=== PATIENT | female | born 1975 | race Caucasian/White ===

== ENCOUNTER 2018-11-04 10:06 | Inpatient (IN) ==
[2018-11-04] MEDS ORDERED: 0.9 % Sodium Chloride 1,000 ML IVC ONE ×2 (11:05→14:19)
[2018-11-04 11:22] LABS: Basophils # 0.1 K/mcL (0.0-0.2); Basophils % 0.4 %; Eosinophils % 0.1 %; Hematocrit 40.6 % (35.3-44.9); Hemoglobin 13.4 g/dL (11.5-15.4); Immature Granulocytes % 0.8 % (0-4); Lymphocytes # 1.2 K/mcL (0.6-4.6); Lymphocytes % 4.4 %; Mean Corpuscular Hemoglobin 28.4 pg (28.0-33.3); Mean Platelet Volume 10.8 fL (9.4-12.4); Monocytes % 3.6 %; Neutrophils # 25.4 K/mcL (1.6-8.9); Platelet Count 341 K/mcL (140-400); Red Blood Count 4.72 M/mcL (3.82-4.97); Red Cell Distribution Width 13.3 % (11.5-14.5); Segmented Neutrophils % 90.7 %
--- NOTE | 2018-11-04 11:36 | Emergency Department Note ---
Disposition Clinical Impression: Pancreatitis Qualifiers: Chronicity: acute Pancreatitis type: other Acute pancreatitis complication: unspecified Qualified Code(s): K85.80 - Other acute pancreatitis without necrosis or infection Disposition: Admitted As Inpatient Condition: Fair Referrals: Annalee Carbajal MD [Primary Care Provider] - Forms: ED Satisfaction Letter Time of Disposition: 15:00 Nausea/Vomiting/Diarrhea HPI - General Chief complaint: ED Nausea/Vomiting/Diarrhea Stated complaint: NV/Abd pain Time Seen by Provider: 11/04/18 10:44 Source: patient, family, EMS Mode of arrival: EMS Limitations: physical limitation Nursing Notes Reviewed: Yes Vital Signs Reviewed: Yes - History of Present Illness HPI Narrative: 43 y/o female presents with her brother and nephew with nausea, vomiting, diarrhea since 0500 this AM. Reports 4 episodes of watery diarrhea and 4-5 episodes of vomiting that appears like "yellow bile with red spots in it". Cough x4-5 days. Denies fever, but has could chills this AM when vomiting. Took ibuprofen 2 hours ago without relief, and EMS gave zofran. Denies vaginal discharge, irregular vaginal bleeding, hematuria, dysuria, or hx of abdominal surgery. Does report hx of GERD. Pt Subjective Complaint: nausea, vomiting, diarrhea, abdominal pain Onset (ago): hour(s) (11 hrs) Description of emesis: bilious, blood-streaked Number of episodes of emesis: 5 Description of Diarrhea: water Number of episodes: 4 Associated Abdominal Pain: Yes If pain, Location of pain: diffuse, periumbilical, LUQ, RUQ, LLQ, RLQ Severity: mild Improves with: rest Worsens with: movement Associated symptoms: Reports: cough, loss of appetite, nausea/vomiting. Denies: fever/chills, headaches, malaise, dysuria, shortness of breath - Related Data Previous Rx's Medication Instructions Recorded Ondansetron HCl [Zofran] 4 mg PO Q6HR PRN #6 tablet 05/23/16 Allergies Allergy/AdvReac Type Severity Reaction Status Date / Time No Known Allergies Allergy Verified 05/23/16 10:33 All systems ED: reviewed and negative except as stated. Review of Systems: As Per HPI Constitutional: Reports: as per HPI. Denies: fever, chills Cardiovascular: Reports: as per HPI. Denies: chest pain Respiratory: Reports: as per HPI, cough Gastrointestinal: Reports: as per HPI, abdominal pain, nausea, vomiting, diarrhea. Denies: constipation, hematemesis, melena, hematochezia Genitourinary: Reports: as per HPI. Denies: urgency, dysuria, hematuria, discharge, abnormal menses, genital lesions Past Medical History - Past Medical History Attestation: Yes The following information was validated with the patient. Source: patient, nursing notes reviewed Medical history: Reports: other Psychiatric history: Reports: no psych history - Social History Smoking Status: Never smoker Smokeless Tobacco Status: No Alcohol use: Reports: none Drug use: Reports: none Physical Exam - General Limitations: language barrier, physical limitation General appearance: alert, in no apparent distress - Head Head exam: atraumatic, normocephalic - Eye Eye exam: Present: normal appearance, PERRL, EOMI - ENT ENT exam: normal exam, mucous membranes moist - Neck Neck exam: Present: normal inspection, full ROM, trachea midline - Chest Chest inspection: Present: normal inspection - Respiratory Respiratory exam: Present: normal lung sounds bilaterally - Cardiovascular Cardiovascular exam: Present: regular rate, normal rhythm, normal heart sounds, +S1, +S2. Absent: systolic murmur, diastolic murmur, rubs, gallop, clicks, JVD - Abdominal Exam Abdominal exam: Present: soft, tenderness, normal bowel sounds. Absent: dis tention, guarding, rebound, rigidity, diminished bowel sounds, organomegaly, psoas sign, obturator sign, Gongora's sign, Rovsing's sign, tenderness at McBurney's Point, ascites Abdominal tenderness: Present: diffuse, mild - Extremities Exam Extremities exam: Present: normal inspection, full ROM - Neurological Exam Neurological exam: Present: alert, oriented X3 - Psychiatric Psychiatric exam: Present: normal affect, normal mood - Skin Skin exam: Present: warm, dry, normal color. Absent: cyanosis, diaphoresis, erythema Course Course Narrative: 1440: I spoke with Demetrio Ennis with gastroenterology. I discussed the patient's presentation, laboratory results and radiology workup. He is aware of the ductal dilatation potential need for MRCP versus ERCP. He states that he is agreeable to consult with the patient and the gastroenterology will see the patient in house tomorrow. He does recommend admission to the medical services with strict bowel rest, IV hydration, IV pain medication, and IV antiemetics. 1455: I spoke with Dr. Hunter, admitting hospitalist on-call. He is except the patient for admission to the hospitalist care. I have also discussed this patient's case with Dr. Mccauley, ED attending. He has had a hcis-[id number] evaluation with patient, reviewed her laboratory and radiology workup, and agrees with the aforementioned plan. - Reevaluation(s) Reevaluation #1: The patient is resting in bed comfortably at this time. Time: 14:45 Vital Signs Temperature 97.9 F 11/04/18 10:13 Pulse Rate 91 11/04/18 10:13 Respiratory Rate 17 11/04/18 10:13 Blood Pressure 146/98 11/04/18 10:13 O2 Sat by Pulse Oximetry 98 11/04/18 10:13 Temperature 97.9 F 11/04/18 10:13 Pulse Rate 89 11/04/18 13:59 Respiratory Rate 16 11/04/18 13:59 Blood Pressure 155/96 11/04/18 13:59 O2 Sat by Pulse Oximetry 100 11/04/18 13:59 Oxygen Delivery Oxygen Delivery Room Air Nausea/Vomiting/Diarrhea - Medical Records Medical records reviewed: Yes I reviewed the patient's medical records. - Lab Data Lab results reviewed: Yes I reviewed the patient's lab results. Lab results narrative: Lab Results 11/04/18 11/04/18 11/04/18 Range/Units 11:09 11:09 11:09 WBC 28.0 H (4.3-11.1) K/mcL RBC 4.72 (3.82-4.97) M/mcL Hgb 13.4 (11.5-15.4) g/dL Hct 40.6 (35.3-44.9) % MCV 86.0 (83.0-100.0) fL MCH 28.4 (28.0-33.3) pg MCHC 33.0 (31.6-35.5) g/dL RDW 13.3 (11.5-14.5) % Plt Count 341 (140-400) K/mcL MPV 10.8 (9.4-12.4) fL Immature Gran % 0.8 (0-4) % Seg Neutrophils % 90.7 % Lymphocytes % 4.4 % Monocytes % 3.6 % Eosinophils % 0.1 % Basophils % 0.4 % Neutrophils # 25.4 H (1.6-8.9) K/mcL Lymphocytes # 1.2 (0.6-4.6) K/mcL Monocytes # 1.0 (0.0-1.3) K/mcL Eosinophils # 0.0 (0.0-0.6) K/mcL Basophils # 0.1 (0.0-0.2) K/mcL Platelet Estimate Normal (Normal) Sodium 134 L (136-145) mEq/L Potassium 4.2 (3.5-5.1) mEq/L Chloride 107 (98-107) mEq/L Carbon Dioxide 18 L (23-29) mEq/L BUN 10 (6-20) mg/dL Creatinine 0.44 L (0.60-1.20) mg/dL Est GFR ( Amer) > 60 (> 60) Est GFR (Non-Af Amer) > 60 (> 60) BUN/Creatinine Ratio 23 (6-26) Glucose 189 H (70-105) mg/dL Calculated Osmolality 282 (280-300) Lactic Acid (0.5-2.2) mmol/L Calcium 8.7 (8.6-10.3) mg/dL Total Bilirubin 0.9 (0.3-1.0) mg/dL Direct Bilirubin 0.3 H (0.0-0.2) mg/dL Indirect Bilirubin 0.6 (0.0-1.2) mg/dL AST 229 H (13-39) Units/L ALT 105 H (7-52) Units/L Alkaline Phosphatase 109 H (34-104) Units/L Serum Total Protein 7.6 (6.4-8.9) g/dL Albumin 3.9 (3.5-5.7) g/dL Globulin 3.7 H (2.4-3.5) g/dL Albumin/Globulin Ratio 1.1 (1.1-2.2) Amylase 1477 H (29-103) Units/L Lipase > 1800 H (11-82) Units/L Urine Color (Yellow) Urine Clarity (Clear) Urine pH (5.0-8.0) pH Units Ur Specific [place] (1.010-1.025) Urine Protein (Neg-Trace) mg/dL Urine Glucose (UA) (Normal) mg/dL Urine Ketones (Negative) mg/dL Urine Blood (Negative) Urine Nitrite (Negative) Urine Bilirubin (Negative) Urine Urobilinogen (Normal) mg/dL Ur Leukocyte Esterase (Negative) Urine Microscopic RBC (0-3) per hpf Urine Microscopic WBC (0-3) per hpf Ur Squamous Epith Cells (None-Few) per lpf Urine Bacteria (None-Few) per hpf Hyaline Casts (None-Few) per lpf Ur Culture Indicated? (NO) Urine Test (Negative) Specimen Rejected Hemolyzed 11/04/18 11/04/18 11/04/18 Range/Units 11:19 11:19 11:50 WBC (4.3-11.1) K/mcL RBC (3.82-4.97) M/mcL Hgb (11.5-15.4) g/dL Hct (35.3-44.9) % MCV (83.0-100.0) fL MCH (28.0-33.3) pg MCHC (31.6-35.5) g/dL RDW (11.5-14.5) % Plt Count (140-400) K/mcL MPV (9.4-12.4) fL Immature Gran % (0-4) % Seg Neutrophils % % Lymphocytes % % Monocytes % % Eosinophils % % Basophils % % Neutrophils # (1.6-8.9) K/mcL Lymphocytes # (0.6-4.6) K/mcL Monocytes # (0.0-1.3) K/mcL Eosinophils # (0.0-0.6) K/mcL Basophils # (0.0-0.2) K/mcL Platelet Estimate (Normal) Sodium (136-145) mEq/L Potassium (3.5-5.1) mEq/L Chloride (98-107) mEq/L Carbon Dioxide (23-29) mEq/L BUN (6-20) mg/dL Creatinine (0.60-1.20) mg/dL Est GFR ( Amer) (> 60) Est GFR (Non-Af Amer) (> 60) BUN/Creatinine Ratio (6-26) Glucose (70-105) mg/dL Calculated Osmolality (280-300) Lactic Acid 1.2 (0.5-2.2) mmol/L Calcium (8.6-10.3) mg/dL Total Bilirubin (0.3-1.0) mg/dL Direct Bilirubin (0.0-0.2) mg/dL Indirect Bilirubin (0.0-1.2) mg/dL AST (13-39) Units/L ALT (7-52) Units/L Alkaline Phosphatase (34-104) Units/L Serum Total Protein (6.4-8.9) g/dL Albumin (3.5-5.7) g/dL Globulin (2.4-3.5) g/dL Albumin/Globulin Ratio (1.1-2.2) Amylase (29-103) Units/L Lipase (11-82) Units/L Urine Color Dark Yellow (Yellow) Urine Clarity Clear (Clear) Urine pH 5.0 (5.0-8.0) pH Units Ur Specific [place] 1.029 H (1.010-1.025) Urine Protein 30 H (Neg-Trace) mg/dL Urine Glucose (UA) Normal (Normal) mg/dL Urine Ketones Negative (Negative) mg/dL Urine Blood Negative (Negative) Urine Nitrite Negative (Negative) Urine Bilirubin Small H (Negative) Urine Urobilinogen Normal (Normal) mg/dL Ur Leukocyte Esterase Negative (Negative) Urine Microscopic RBC 0-3 (0-3) per hpf Urine Microscopic WBC 0-3 (0-3) per hpf Ur Squamous Epith Cells Many H (None-Few) per lpf Urine Bacteria None Seen (None-Few) per hpf Hyaline Casts Few (None-Few) per lpf Ur Culture Indicated? NO (NO) Urine Test Negative (Negative) Specimen Rejected Result diagrams: 11/04/18 11:09 11/04/18 11:09 Lab Results 11/04/18 11/04/18 11/04/18 Range/Units 11:09 11:09 11:09 WBC 28.0 H (4.3-11.1) K/mcL RBC 4.72 (3.82-4.97) M/mcL Hgb 13.4 (11.5-15.4) g/dL Hct 40.6 (35.3-44.9) % MCV 86.0 (83.0-100.0) fL MCH 28.4 (28.0-33.3) pg MCHC 33.0 (31.6-35.5) g/dL RDW 13.3 (11.5-14.5) % Plt Count 341 (140-400) K/mcL MPV 10.8 (9.4-12.4) fL Immature Gran % 0.8 (0-4) % Seg Neutrophils % 90.7 % Lymphocytes % 4.4 % Monocytes % 3.6 % Eosinophils % 0.1 % Basophils % 0.4 % Neutrophils # 25.4 H (1.6-8.9) K/mcL Lymphocytes # 1.2 (0.6-4.6) K/mcL Monocytes # 1.0 (0.0-1.3) K/mcL Eosinophils # 0.0 (0.0-0.6) K/mcL Basophils # 0.1 (0.0-0.2) K/mcL Platelet Estimate Normal (Normal) Sodium 134 L (136-145) mEq/L Potassium 4.2 (3.5-5.1) mEq/L Chloride 107 (98-107) mEq/L Carbon Dioxide 18 L (23-29) mEq/L BUN 10 (6-20) mg/dL Creatinine 0.44 L (0.60-1.20) mg/dL Est GFR ( Amer) > 60 (> 60) Est GFR (Non-Af Amer) > 60 (> 60) BUN/Creatinine Ratio 23 (6-26) Glucose 189 H (70-105) mg/dL Calculated Osmolality 282 (280-300) Lactic Acid (0.5-2.2) mmol/L Calcium 8.7 (8.6-10.3) mg/dL Total Bilirubin 0.9 (0.3-1.0) mg/dL Direct Bilirubin 0.3 H (0.0-0.2) mg/dL Indirect Bilirubin 0.6 (0.0-1.2) mg/dL AST 229 H (13-39) Units/L ALT 105 H (7-52) Units/L Alkaline Phosphatase 109 H (34-104) Units/L Serum Total Protein 7.6 (6.4-8.9) g/dL Albumin 3.9 (3.5-5.7) g/dL Globulin 3.7 H (2.4-3.5) g/dL Albumin/Globulin Ratio 1.1 (1.1-2.2) Triglycerides 122 (< 150) mg/dL Cholesterol 186 (< 200) mg/dL LDL Cholesterol, Calc 119 H (0-99) mg/dL VLDL Cholesterol, Calc 24 (< 31) mg/dL HDL Cholesterol 43 (40-59) mg/dL Cholesterol/HDL Ratio 4.3 (0-4.9) Amylase 1477 H (29-103) Units/L Lipase > 1800 H (11-82) Units/L Urine Color (Yellow) Urine Clarity (Clear) Urine pH (5.0-8.0) pH Units Ur Specific [place] (1.010-1.025) Urine Protein (Neg-Trace) mg/dL Urine Glucose (UA) (Normal) mg/dL Urine Ketones (Negative) mg/dL Urine Blood (Negative) Urine Nitrite (Negative) Urine Bilirubin (Negative) Urine Urobilinogen (Normal) mg/dL Ur Leukocyte Esterase (Negative) Urine Microscopic RBC (0-3) per hpf Urine Microscopic WBC (0-3) per hpf Ur Squamous Epith Cells (None-Few) per lpf Urine Bacteria (None-Few) per hpf Hyaline Casts (None-Few) per lpf Ur Culture Indicated? (NO) Urine Test (Negative) Specimen Rejected Hemolyzed 11/04/18 11/04/18 11/04/18 Range/Units 11:19 11:19 11:50 WBC (4.3-11.1) K/mcL RBC (3.82-4.97) M/mcL Hgb (11.5-15.4) g/dL Hct (35.3-44.9) % MCV (83.0-100.0) fL MCH (28.0-33.3) pg MCHC (31.6-35.5) g/dL RDW (11.5-14.5) % Plt Count (140-400) K/mcL MPV (9.4-12.4) fL Immature Gran % (0-4) % Seg Neutrophils % % Lymphocytes % % Monocytes % % Eosinophils % % Basophils % % Neutrophils # (1.6-8.9) K/mcL Lymphocytes # (0.6-4.6) K/mcL Monocytes # (0.0-1.3) K/mcL Eosinophils # (0.0-0.6) K/mcL Basophils # (0.0-0.2) K/mcL Platelet Estimate (Normal) Sodium (136-145) mEq/L Potassium (3.5-5.1) mEq/L Chloride (98-107) mEq/L Carbon Dioxide (23-29) mEq/L BUN (6-20) mg/dL Creatinine (0.60-1.20) mg/dL Est GFR ( Amer) (> 60) Est GFR (Non-Af Amer) (> 60) BUN/Creatinine Ratio (6-26) Glucose (70-105) mg/dL Calculated Osmolality (280-300) Lactic Acid 1.2 (0.5-2.2) mmol/L Calcium (8.6-10.3) mg/dL Total Bilirubin (0.3-1.0) mg/dL Direct Bilirubin (0.0-0.2) mg/dL Indirect Bilirubin (0.0-1.2) mg/dL AST (13-39) Units/L ALT (7-52) Units/L Alkaline Phosphatase (34-104) Units/L Serum Total Protein (6.4-8.9) g/dL Albumin (3.5-5.7) g/dL Globulin (2.4-3.5) g/dL Albumin/Globulin Ratio (1.1-2.2) Triglycerides (< 150) mg/dL Cholesterol (< 200) mg/dL LDL Cholesterol, Calc (0-99) mg/dL VLDL Cholesterol, Calc (< 31) mg/dL HDL Cholesterol (40-59) mg/dL Cholesterol/HDL Ratio (0-4.9) Amylase (29-103) Units/L Lipase (11-82) Units/L Urine Color Dark Yellow (Yellow) Urine Clarity Clear (Clear) Urine pH 5.0 (5.0-8.0) pH Units Ur Specific [place] 1.029 H (1.010-1.025) Urine Protein 30 H (Neg-Trace) mg/dL Urine Glucose (UA) Normal (Normal) mg/dL Urine Ketones Negative (Negative) mg/dL Urine Blood Negative (Negative) Urine Nitrite Negative (Negative) Urine Bilirubin Small H (Negative) Urine Urobilinogen Normal (Normal) mg/dL Ur Leukocyte Esterase Negative (Negative) Urine Microscopic RBC 0-3 (0-3) per hpf Urine Microscopic WBC 0-3 (0-3) per hpf Ur Squamous Epith Cells Many H (None-Few) per lpf Urine Bacteria None Seen (None-Few) per hpf Hyaline Casts Few (None-Few) per lpf Ur Culture Indicated? NO (NO) Urine Test Negative (Negative) Specimen Rejected - Radiology Data Radiology results reviewed: Yes I reviewed the patient's radiology results.
[2018-11-04 11:41] LABS: Bilirubin,Urine Small (Negative); Blood,Urine Negative (Negative); Clarity,Urine Clear (Clear); Color,Urine Dark Yellow (Yellow); Glucose,Urine (UA) Normal (Normal); Ketones,Urine Negative (Negative); Leukocyte Esterase,Urine Negative (Negative); Nitrite,Urine Negative (Negative); Protein,Urine 30 mg/dL (Neg-Trace); Specific Gravity,Urine 1.029 (1.010-1.025); Urobilinogen,Urine Normal (Normal)
[2018-11-04 11:43] LABS: Bacteria,Urine None Seen per hpf (None-Few); Hyaline Casts,Urine Few per lpf (None-Few); RBC,Urine 0-3 per hpf (0-3); Squamous Epithelial Cell,Urine Many per lpf (None-Few); WBC,Urine 0-3 per hpf (0-3)
[2018-11-04 11:44] LABS: Alanine Aminotransferase 105 Units/L (7-52); Albumin 3.9 g/dL (3.5-5.7); Albumin/Globulin Ratio 1.1 (1.1-2.2); Alkaline Phosphatase 109 Units/L (34-104); Amylase 1477 Units/L (29-103); Aspartate Amino Transferase 229 Units/L (13-39); BUN/Creatinine Ratio 23 (6-26); Bilirubin,Direct 0.3 mg/dL (0.0-0.2); Bilirubin,Indirect 0.6 mg/dL (0.0-1.2); Bilirubin,Total 0.9 mg/dL (0.3-1.0); Blood Urea Nitrogen 10 mg/dL (6-20); Calcium 8.7 mg/dL (8.6-10.3); Carbon Dioxide 18 mEq/L (23-29); Chloride 107 mEq/L (98-107); Globulin 3.7 g/dL (2.4-3.5); Glucose 189 mg/dL (70-105); Osmolality,Calculated 282 (280-300); Potassium 4.2 mEq/L (3.5-5.1); Sodium 134 mEq/L (136-145); Total Protein 7.6 g/dL (6.4-8.9); eGFR For Non-African Americans > 60 (> 60)
[2018-11-04 11:47] LABS: Platelet Estimate Normal (Normal)
[2018-11-04] MEDS ORDERED: Isovue-370 500 ML BOTTLE IVP ONE (11:54)
[2018-11-04 11:56] LABS: Lipase > 1800 Units/L (11-82)
[2018-11-04] MEDS ORDERED: Ondansetron 4 MG/2 ML VIAL IVP ONE (12:43)
[2018-11-04] MEDS ORDERED: Promethazine 25 MG in 0.9 % Sodium Chloride 50 ML IVPB ONE (13:08)
[2018-11-04] MEDS ORDERED: *HR* Promethazine 25 MG/ML VIAL ONE (13:15)
[2018-11-04] MEDS ORDERED: Haloperidol Lactate 5 MG/ML VIAL ONE (13:51)
[2018-11-04] MEDS ORDERED: Haloperidol Lactate 5 MG/ML VIAL IVP ONE (13:53)
[2018-11-04 13:59] LABS: Chol/HDL Ratio 4.3 (0-4.9); Cholesterol 186 mg/dL (< 200); HDL Cholesterol 43 mg/dL (40-59); LDL Cholesterol,Calculated 119 mg/dL (0-99); Triglycerides 122 mg/dL (< 150)
--- NOTE | 2018-11-04 14:18 | Emergency Department Note ---
Disposition Clinical Impression: Pancreatitis Qualifiers: Chronicity: acute Pancreatitis type: other Acute pancreatitis complication: unspecified Qualified Code(s): K85.80 - Other acute pancreatitis without necrosis or infection Disposition: Still a Patient Referrals: Annalee Carbajal MD [Primary Care Provider] - Forms: ED Satisfaction Letter General Adult HPI - General Chief complaint: ED Nausea/Vomiting/Diarrhea Stated complaint: NV/Abd pain Time Seen by Provider: 11/04/18 10:44 Source: patient, family, EMS Mode of arrival: EMS Limitations: language barrier, physical limitation Nursing Notes Reviewed: Yes Vital Signs Reviewed: Yes - History of Present Illness HPI Narrative: Attestation note: Patient was seen with the emergency medicine resident/nurse pra ctitioner/physician statistical assistant/transitional resident/medical student: SHIV PAULA I have personally performed a face to face evaluation on this patient. I have reviewed and agree with history and physical examination patient management and disposition. Briefly the salient points of the case are as follows: 43-year-old female history of MRDD comes in with abdominal pain nausea and vomiting. Has tender abdomen with guarding but no rebound. Elevated white count approximately 28,000, has skyhigh amylase and lipase 1800 or greater. Patient will get an abdominal pelvic CT emergency determine if this is gallstone pancreatitis. T bili is only 0.5. Admission anticipated, providing 30 minutes critical care service for this patient with IV fluids pain management and nausea management. Disposition pending Pain Scale: 10 - Related Data Previous Rx's Medication Instructions Recorded Ondansetron HCl [Zofran] 4 mg PO Q6HR PRN #6 tablet 05/23/16 Allergies Allergy/AdvReac Type Severity Reaction Status Date / Time No Known Allergies Allergy Verified 05/23/16 10:33 Constitutional: Reports: as per HPI. Denies: fever, chills Cardiovascular: Reports: as per HPI. Denies: chest pain Respiratory: Reports: as per HPI, cough Gastrointestinal: Reports: as per HPI, abdominal pain, nausea, vomiting, diarrhea. Denies: constipation, hematemesis, melena, hematochezia Genitourinary: Reports: as per HPI. Denies: urgency, dysuria, hematuria, discharge, abnormal menses, genital lesions Past Medical History - Past Medical History Medical history: Reports: other Psychiatric history: Reports: no psych history - Social History Smoking Status: Never smoker Smokeless Tobacco Status: No Alcohol use: Reports: none Drug use: Reports: none Physical Exam - General Limitations: language barrier, physical limitation General appearance: alert, in no apparent distress Course Vital Signs Temperature 97.9 F 11/04/18 10:13 Pulse Rate 91 11/04/18 10:13 Respiratory Rate 17 11/04/18 10:13 Blood Pressure 146/98 11/04/18 10:13 O2 Sat by Pulse Oximetry 98 11/04/18 10:13 Temperature 97.9 F 11/04/18 10:13 Pulse Rate 89 11/04/18 13:59 Respiratory Rate 16 11/04/18 13:59 Blood Pressure 155/96 11/04/18 13:59 O2 Sat by Pulse Oximetry 100 11/04/18 13:59 Oxygen Delivery Oxygen Delivery Room Air Medical Decision Making - Lab Data Result diagrams: 11/04/18 11:09 11/04/18 11:09 Lab Results 11/04/18 11/04/18 11/04/18 Range/Units 11:09 11:09 11:09 WBC 28.0 H (4.3-11.1) K/mcL RBC 4.72 (3.82-4.97) M/mcL Hgb 13.4 (11.5-15.4) g/dL Hct 40.6 (35.3-44.9) % MCV 86.0 (83.0-100.0) fL MCH 28.4 (28.0-33.3) pg MCHC 33.0 (31.6-35.5) g/dL RDW 13.3 (11.5-14.5) % Plt Count 341 (140-400) K/mcL MPV 10.8 (9.4-12.4) fL Immature Gran % 0.8 (0-4) % Seg Neutrophils % 90.7 % Lymphocytes % 4.4 % Monocytes % 3.6 % Eosinophils % 0.1 % Basophils % 0.4 % Neutrophils # 25.4 H (1.6-8.9) K/mcL Lymphocytes # 1.2 (0.6-4.6) K/mcL Monocytes # 1.0 (0.0-1.3) K/mcL Eosinophils # 0.0 (0.0-0.6) K/mcL Basophils # 0.1 (0.0-0.2) K/mcL Platelet Estimate Normal (Normal) Sodium 134 L (136-145) mEq/L Potassium 4.2 (3.5-5.1) mEq/L Chloride 107 (98-107) mEq/L Carbon Dioxide 18 L (23-29) mEq/L BUN 10 (6-20) mg/dL Creatinine 0.44 L (0.60-1.20) mg/dL Est GFR ( Amer) > 60 (> 60) Est GFR (Non-Af Amer) > 60 (> 60) BUN/Creatinine Ratio 23 (6-26) Glucose 189 H (70-105) mg/dL Calculated Osmolality 282 (280-300) Lactic Acid (0.5-2.2) mmol/L Calcium 8.7 (8.6-10.3) mg/dL Total Bilirubin 0.9 (0.3-1.0) mg/dL Direct Bilirubin 0.3 H (0.0-0.2) mg/dL Indirect Bilirubin 0.6 (0.0-1.2) mg/dL AST 229 H (13-39) Units/L ALT 105 H (7-52) Units/L Alkaline Phosphatase 109 H (34-104) Units/L Serum Total Protein 7.6 (6.4-8.9) g/dL Albumin 3.9 (3.5-5.7) g/dL Globulin 3.7 H (2.4-3.5) g/dL Albumin/Globulin Ratio 1.1 (1.1-2.2) Triglycerides 122 (< 150) mg/dL Cholesterol 186 (< 200) mg/dL LDL Cholesterol, Calc 119 H (0-99) mg/dL VLDL Cholesterol, Calc 24 (< 31) mg/dL HDL Cholesterol 43 (40-59) mg/dL Cholesterol/HDL Ratio 4.3 (0-4.9) Amylase 1477 H (29-103) Units/L Lipase > 1800 H (11-82) Units/L Urine Color (Yellow) Urine Clarity (Clear) Urine pH (5.0-8.0) pH Units Ur Specific [place] (1.010-1.025) Urine Protein (Neg-Trace) mg/dL Urine Glucose (UA) (Normal) mg/dL Urine Ketones (Negative) mg/dL Urine Blood (Negative) Urine Nitrite (Negative) Urine Bilirubin (Negative) Urine Urobilinogen (Normal) mg/dL Ur Leukocyte Esterase (Negative) Urine Microscopic RBC (0-3) per hpf Urine Microscopic WBC (0-3) per hpf Ur Squamous Epith Cells (None-Few) per lpf Urine Bacteria (None-Few) per hpf Hyaline Casts (None-Few) per lpf Ur Culture Indicated? (NO) Urine Test (Negative) Specimen Rejected Hemolyzed 11/04/18 11/04/18 11/04/18 Range/Units 11:19 11: 11:50 WBC (4.3-11.1) K/mcL RBC (3.82-4.97) M/mcL Hgb (11.5-15.4) g/dL Hct (35.3-44.9) % MCV (83.0-100.0) fL MCH (28.0-33.3) pg MCHC (31.6-35.5) g/dL RDW (11.5-14.5) % Plt Count (140-400) K/mcL MPV (9.4-12.4) fL Immature Gran % (0-4) % Seg Neutrophils % % Lymphocytes % % Monocytes % % Eosinophils % % Basophils % % Neutrophils # (1.6-8.9) K/mcL Lymphocytes # (0.6-4.6) K/mcL Monocytes # (0.0-1.3) K/mcL Eosinophils # (0.0-0.6) K/mcL Basophils # (0.0-0.2) K/mcL Platelet Estimate (Normal) Sodium (136-145) mEq/L Potassium (3.5-5.1) mEq/L Chloride (98-107) mEq/L Carbon Dioxide (23-29) mEq/L BUN (6-20) mg/dL Creatinine (0.60-1.20) mg/dL Est GFR ( Amer) (> 60) Est GFR (Non-Af Amer) (> 60) BUN/Creatinine Ratio (6-26) Glucose (70-105) mg/dL Calculated Osmolality (280-300) Lactic Acid 1.2 (0.5-2.2) mmol/L Calcium (8.6-10.3) mg/dL Total Bilirubin (0.3-1.0) mg/dL Direct Bilirubin (0.0-0.2) mg/dL Indirect Bilirubin (0.0-1.2) mg/dL AST (13-39) Units/L ALT (7-52) Units/L Alkaline Phosphatase (34-104) Units/L Serum Total Protein (6.4-8.9) g/dL Albumin (3.5-5.7) g/dL Globulin (2.4-3.5) g/dL Albumin/Globulin Ratio (1.1-2.2) Triglycerides (< 150) mg/dL Cholesterol (< 200) mg/dL LDL Cholesterol, Calc (0-99) mg/dL VLDL Cholesterol, Calc (< 31) mg/dL HDL Cholesterol (40-59) mg/dL Cholesterol/HDL Ratio (0-4.9) Amylase (29-103) Units/L Lipase (11-82) Units/L Urine Color Dark Yellow (Yellow) Urine Clarity Clear (Clear) Urine pH 5.0 (5.0-8.0) pH Units Ur Specific [place] 1.029 H (1.010-1.025) Urine Protein 30 H (Neg-Trace) mg/dL Urine Glucose (UA) Normal (Normal) mg/dL Urine Ketones Negative (Negative) mg/dL Urine Blood Negative (Negative) Urine Nitrite Negative (Negative) Urine Bilirubin Small H (Negative) Urine Urobilinogen Normal (Normal) mg/dL Ur Leukocyte Esterase Negative (Negative) Urine Microscopic RBC 0-3 (0-3) per hpf Urine Microscopic WBC 0-3 (0-3) per hpf Ur Squamous Epith Cells Many H (None-Few) per lpf Urine Bacteria None Seen (None-Few) per hpf Hyaline Casts Few (None-Few) per lpf Ur Culture Indicated? NO (NO) Urine Test Negative (Negative) Specimen Rejected
[2018-11-04] MEDS ORDERED: *HR* Morphine 2 MG/ML SYRINGE IVP ONE (14:19)
--- NOTE | 2018-11-04 15:56 | Internal Med History&Physical ---
Date of Encounter: 11/04/18 Time of Encounter: 15:30 Internal Medicine - H&P: HPI Chief complaint: nausea, vomiting, abdominal pain Admitted From: Home Plans for Post Hospital Care: Home History of present illness: Ms. Douglas is a 43 year old female with MRDD who is brought to the ER by family for evaluation of abdominal pain, nausea, and vomiting. Pt has MRDD and lives with family; pt's brother is present at bedside, who provided the history/medical information. As per pt's brother, pt was in her usual state of health until this morning when she started complaining of severe right sided abdominal pain associated with severe nausea and vomiting. Pt was noted to have one episode of bilious vomiting. Upon arrival to the ER pt was noted to be in severe painful distress with nausea due to which she was given IV morphine and IV Zofran. I evaluated the patient after she had received those medications. During my evaluation, pt denied any abdominal pain, nausea, or vomiting. No fever or chills were reported. Pt does have history of cholelithiasis as per med records in the past but no prior surgeries were reported. Ten point ROS is negative except as listed above. pt's baseline mental status is AAO x 1 (currently at baseline mental status) Past Med Surg Social Fam HX - Past Medical History Additional medical history: muscular dystrophy Psychiatric history: no psych history - Social History Smoking Status: Never smoker Smokeless Tobacco Status: No Alcohol use: none Drug use: none Internal Medicine - H&P: Meds Ondansetron HCl [Zofran] 4 mg PO Q6HR PRN #6 tablet 05/23/16 [Rx] Allergy/AdvReac Type Severity Reaction Status Date / Time No Known Allergies Allergy Verified 05/23/16 10:33 All Systems PM: A 10-system review of systems was performed and is negative for pertinent findi ngs except as documented above in the HPI. - Constitutional Constitutional: as per HPI - Constitutional Vitals: Temp Pulse Resp BP Pulse Ox 97.9 F 89 16 155/96 100 11/04/18 10:13 11/04/18 13:59 11/04/18 13:59 11/04/18 13:59 11/04/18 13:59 General appearance: Present: A&O X 1, no acute distress, obese Exam: NO acute distress - Head Head exam: Present: atraumatic, normocephalic - Eye Eye exam: Absent: scleral icterus, conjuntiva pink - Respiratory Respiratory exam: Present: CTAB. Absent: respiratory distress, rhonchi, w heezes, tachypnea - Cardiovascular Cardiovascular exam: Present: +S1, +S2, tachycardia. Absent: diastolic murmur, irregular rhythm, JVD, systolic murmur - GI/Abdominal GI/Abdominal exam: Present: normal bowel sounds, soft. Absent: distended, guarding, tenderness - Extremities Exam Extremities exam: Present: warm. Absent: tenderness (contracted left LE) - Neurological Exam Neurological exam: Present: alert Internal Med - H&P Results - Labs CBC & Chem 7: 11/04/18 11:09 11/04/18 11:09 Labs: Short CBC 11/04/18 Range/Units 11:09 WBC 28.0 H (4.3-11.1) K/mcL Hgb 13.4 (11.5-15.4) g/dL Hct 40.6 (35.3-44.9) % Plt Count 341 (140-400) K/mcL Neutrophils # 25.4 H (1.6-8.9) K/mcL BMP 11/04/18 11:09 Sodium 134 L Potassium 4.2 Chloride 107 Carbon Dioxide 18 L BUN 10 Creatinine 0.44 L Glucose 189 H Calcium 8.7 Liver Function 11/04/18 Range/Units 11:09 Total Bilirubin 0.9 (0.3-1.0) mg/dL Direct Bilirubin 0.3 H (0.0-0.2) mg/dL AST 229 H (13-39) Units/L ALT 105 H (7-52) Units/L Alkaline Phosphatase 109 H (34-104) Units/L Albumin 3.9 (3.5-5.7) g/dL Urine 11/04/18 Range/Units 11:19 Urine Color Dark Yellow (Yellow) Urine Clarity Clear (Clear) Urine pH 5.0 (5.0-8.0) pH Units Ur Specific [place] 1.029 H (1.010-1.025) Urine Protein 30 H (Neg-Trace) mg/dL Urine Glucose (UA) Normal (Normal) mg/dL - Impressions ITS Impressions Abdomen/Pelvis CT 11/04/18 11:54 IMPRESSION: Peripancreatic fat stranding concerning for acute pancreatitis. Clinical and laboratory correlation suggested. No evidence for pancreatic necrosis, focal fluid collection such as pseudocyst or abscess formation, or splenic vein thrombosis. Mild ascites likely reactive relating to the acute pancreatitis. Intrahepatic and extrahepatic biliary ductal dilatation, new from prior exam 09/03/2018. No definite intraductal abnormality noted. This may be secondary to the acute pancreatitis. Clinical and laboratory correlation suggested and consideration could be given to further evaluation with MRCP or ERCP. Cholelithiasis. 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 Small hiatal hernia. D/ / 11/04/2018 14:20:07 Jason Grayson MD / [place] Interpreting Provider: Jason Grayson MD - Assessment and Plan (1) Acute pancreatitis Current Visit: Yes Status: Acute Assessment and plan: CT abd/pelvis: Peripancreatic fat stranding concerning for acute pancreatitis. Clinical and laboratory correlation suggested. No evidence for pancreatic necrosis, focal fluid collection such as pseudocyst or abscess formation, or splenic vein thrombosis. Mild ascites likely reactive relating to the acute pancreatitis. Intrahepatic and extrahepatic biliary ductal dilatation, new from prior exam 09/03/2018. No definite intraductal abnormality noted. This may be secondary to the acute pancreatitis. Clinical and laboratory correlation suggested and consideration could be given to further evaluation with MRCP or ERCP. Cholelithiasis. 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 Small hiatal hernia. GI evaluation requested by ER physician continue IV fluids, pain management, anti-emetic support as needed start IV Zosyn NPO at this time Qualifiers: Pancreatitis type: biliary Acute pancreatitis complication: no infection or necrosis Qualified Code(s): K85.10 - Biliary acute pancreatitis without necrosis or infection (2) Sepsis Current Visit: Yes Status: Acute Assessment and plan: likely secondary to acute pancreatitis continue management as listed above Qualifiers: Sepsis type: sepsis due to unspecified organism Qualified Code(s): A41.9 - Sepsis, unspecified organism (3) Cholecystitis with cholelithiasis Current Visit: Yes Status: Acute Assessment and plan: continue supportive care IV fluids, IV Abx GI evaluation requested Pt will likely need ERCP, will defer to GI Qualifiers: Cholelithiasis location: bile duct Cholecystitis acuity: acute and chronic Biliary obstruction: without biliary obstruction Qualified Code(s): K80.46 - Calculus of bile duct with acute and chronic cholecystitis without obstruction (4) Hyperglycemia Current Visit: Yes Status: Acute Assessment and plan: No reported history of DM will obtain HbA1C (5) DVT prophylaxis Current Visit: Yes Status: Acute Assessment and plan: Heparin SQ - Time Spent With Patient Total time spent is greater than 50% in coordination of care (as documented) at patient's floor/unit and/or counseling patient: Greater than 35 minutes
[2018-11-04 16:34] LABS: Alanine Aminotransferase 97 Units/L (7-52); Albumin 3.8 g/dL (3.5-5.7); Albumin/Globulin Ratio 1.1 (1.1-2.2); Alkaline Phosphatase 97 Units/L (34-104); Aspartate Amino Transferase 133 Units/L (13-39); BUN/Creatinine Ratio 22 (6-26); Bilirubin,Total 0.6 mg/dL (0.3-1.0); Blood Urea Nitrogen 8 mg/dL (6-20); Calcium 8.2 mg/dL (8.6-10.3); Carbon Dioxide 16 mEq/L (23-29); Chloride 107 mEq/L (98-107); Globulin 3.5 g/dL (2.4-3.5); Glucose 189 mg/dL (70-105); Osmolality,Calculated 277 (280-300); Potassium 4.5 mEq/L (3.5-5.1); Sodium 132 mEq/L (136-145); Total Protein 7.3 g/dL (6.4-8.9); eGFR For Non-African Americans > 60 (> 60)
[2018-11-04] MEDS: 0.9 % Sodium Chloride 1,000 ML IVC SCH ×2 (17:45→23:01)
[2018-11-04] MEDS: Piperacillin/Tazobactam 3.375 GM in 0.9 % Sodium Chloride Mini Bag 100 ML IVP SCH (17:46)
[2018-11-04] MEDS: *HR* Heparin 5,000 UNIT/ML VIAL SQ SCH (17:51)
[2018-11-04] MEDS: *HR* Morphine 2 MG/ML SYRINGE IVP PRN (19:54)
[2018-11-04] MEDS: Ondansetron 4 MG/2 ML VIAL IVP PRN (19:55)
[2018-11-05] MEDS: Piperacillin/Tazobactam 3.375 GM in 0.9 % Sodium Chloride Mini Bag 100 ML IVP SCH ×3 (01:32→16:03)
[2018-11-05] MEDS: Ondansetron 4 MG/2 ML VIAL IVP PRN (02:05)
[2018-11-05] MEDS: *HR* Morphine 2 MG/ML SYRINGE IVP PRN ×2 (02:06→06:33)
[2018-11-05] MEDS: 0.9 % Sodium Chloride 1,000 ML IVC SCH (04:05)
[2018-11-05 04:52] LABS: Basophils % 0.2 %; Immature Granulocytes % 1.1 % (0-4); Mean Platelet Volume 10.9 fL (9.4-12.4)
[2018-11-05 04:54] LABS: Basophils # 0.1 K/mcL (0.0-0.2); Hematocrit 39.9 % (35.3-44.9); Hemoglobin 13.4 g/dL (11.5-15.4); Lymphocytes # 1.3 K/mcL (0.6-4.6); Lymphocytes % 3.1 %; Mean Corpuscular HGB Conc 33.6 g/dL (31.6-35.5); Mean Corpuscular Volume 83.5 fL (83.0-100.0); Monocytes # 2.2 K/mcL (0.0-1.3); Monocytes % 5.3 %; Platelet Count 371 K/mcL (140-400); Red Blood Count 4.78 M/mcL (3.82-4.97); Red Cell Distribution Width 13.6 % (11.5-14.5); Segmented Neutrophils % 90.3 %
[2018-11-05 05:26] LABS: Magnesium 1.8 mg/dL (1.6-2.6); Phosphorous 2.3 mg/dL (2.7-4.5)
[2018-11-05] MEDS: *HR* Heparin 5,000 UNIT/ML VIAL SQ SCH ×2 (05:56→17:34)
[2018-11-05 06:04] LABS: Reactive Lymphocytes Present (Not Present)
[2018-11-05 06:05] LABS: Platelet Estimate Normal (Normal)
[2018-11-05 09:33] LABS: Albumin 3.5 g/dL (3.5-5.7); Albumin/Globulin Ratio 1.1 (1.1-2.2); Bilirubin,Direct 0.1 mg/dL (0.0-0.2); Bilirubin,Indirect 0.6 mg/dL (0.0-1.2); Bilirubin,Total 0.7 mg/dL (0.3-1.0); Globulin 3.3 g/dL (2.4-3.5); Total Protein 6.8 g/dL (6.4-8.9)
[2018-11-05 09:36] LABS: Estimated Average Glucose 120 mg/dl; Hemoglobin A1C 5.8 %
--- NOTE | 2018-11-05 11:07 | Infectious Disease Consult ---
Date of Encounter: 11/05/18 Time of Encounter: 12:00 Assessment and Plan (1) Sepsis Status: Acute Assessment and plan: The patient had two SIRS criteria. Likely secondary to acute pancreatitis. Clinically improved, but developed tachycardia and worsening of leukocytosis overnight. Blood cultures drawn 11/05/18 are pending x 2 sets. Recommendations: Continue to trend WBC, LFTs, and amylipase/lipase. Await RIP. Await further recommendations from the GI team. Discontinue Vancomycin. Discontinue Zosyn. No indication for antibiotics unless there is necrosis of the pancreas. Duration of treatment depends on the clinical picture. Monitor renal function and dose-adjust antibiotics. Qualifiers: Sepsis type: sepsis due to unspecified organism Qualified Code(s): A41.9 - Sepsis, unspecified organism (2) Acute pancreatitis Status: Acute Assessment and plan: CT of the abdomen and pelvis 11/04/18 showed peripancreatic fat straining concerning for acute pancreatitis with mild ascites likely reactive relating to the acute pancreatitis. It also showed intrahepatic and extrahepatic biliary ductal dilatation, new from prior exam in August. Amylase elevated at 1477. Lipase greater than 1800. Clinically improved. GI consulted. Planning for an ERCP later today. Qualifiers: Pancreatitis type: biliary Acute pancreatitis complication: no infection or necrosis Qualified Code(s): K85.10 - Biliary acute pancreatitis without necrosis or infection (3) Cholelithiasis Status: Acute Assessment and plan: Noted on CT of the abdomen and pelvis. GI consulted. Qualifiers: Cholelithiasis location: other site Biliary obstruction: with biliary obstruction Qualified Code(s): K80.81 - Other cholelithiasis with obstruction (4) Muscular dystrophy Status: Chronic Infectious Disease HPI - Data of Consult Patient: new to practice Consult date: 11/05/18 Requesting Physician: Romy Santoyo MD Primary Care Provider: Annalee Carbajal MD - Consult Narrative Reason for consult: Sepsis History of present illness: Ms. Douglas is a 43 year old female with a past medical history of MRDD and muscular dystrophy. The patient was admitted to the hospital 11/04/18 for pancreatitis. We are consulted 11/05/18 for further workup and treatment recommendations for sepsis. Briefly, the patient is a 43-year-old female with past medical history as stated above. The patient presented to the emergency department with complaints of sudden onset nausea, vomiting, abdominal pain, and diarrhea. Upon arrival, the patient was afebrile and hemodynamically stable. She did have leukocytosis with neutrophilic predominance. Lactic acid and renal function were normal. Liver transaminases were elevated with an AST of 229, ALT of 105, and alkaline phosphatase 109. Amylase was 1477. Lipase was greater than 1800. She had a CT of the abdomen and pelvis showed findings consistent with acute pancreatitis and mild ascites, likely secondary to acute pancreatitis. She also had intrahepatic and extrahepatic biliary duct dilatation and cholelithiasis. She was started empirically on IV antibiotics and admitted to the hospital for further evaluation. Since admission, she has remained afebrile. She has had some tachycardia overnight. Her white blood cell count went up to 41,000 with neutrophilic predominance. Transaminases are trending down. Amylase and lipase are improved. GI service has been consulted. Blood cultures are pending 2 sets. A RIP and MRCP have been ordered by the primary team and are pending completion. Currently, she is on Vanc and Zosyn. We have been asked to evaluate and make further recommendations. During my exam today, the patient endorses a history as stated above. Per her family, she did have a low-grade temp at home, but no chills or rigors. She denies any headache or neck pain. Denies any congestion, earache, or sore throat. Denies shortness of breath, cough, or chest pain. States her nausea and vomiting have subsided but describes it as yellow, bilious emesis with specks of red. She does not complain of abdominal pain at this time. She denies any oral thrush or skin lesions. Denies any dental pain. Denies any urinary complaints. States she is in her usual state of health until the day when she presented to the emergency department. Last BM was yesterday and was loose, but non-bloody. The patient lives at home with her family. She denies any tobacco, alcohol, or illicit drug use. She does not work outside the home. She does have a dog. She denies any recent travel. Denies any chronic infectious diseases. She does report exposure to ill contacts recently including a child diagnosed with influenza. CC: Romy Santoyo MD Past Med Surg Social Fam HX - Past Medical History Attestation: Yes The following information was validated with the patient. Source: old records reviewed, obtained from family, nursing notes reviewed Medical history: other Additional medical history: muscular dystrophy Psychiatric history: no psych history - Past Surgical History Surgical History: no surgical history - Social History Smoking Status: Never smoker Smokeless Tobacco Status: No Alcohol use: none Drug use: none Occupational status: disabled Current living situation: Home, With Family Activity Level: Wheelchair bound - Family History Brother Name: Jacob Alfaro Family Cardiac Disorders: Yes (HTN, DVT) Infectious Disease-CN:Meds RX: No Known Home Drugs 11/04/18 [History] Allergy/AdvReac Type Severity Reaction Status Date / Time No Known Allergies Allergy Verified 05/23/16 10:33 All systems: reviewed and no additional remarkable complaints except as stated Exam - Constitutional Vitals: Temp Pulse Resp BP Pulse Ox 98.4 F 108 16 116/81 96 11/05/18 08:57 11/05/18 08:57 11/05/18 08:57 11/05/18 08:57 11/05/18 08:57 General appearance: cooperative, morbidly obese, no acute distress - Head Head exam: Present: atraumatic, normal inspection, normocephalic - Eye Eye exam: Present: PERRL Pupils: Present: normal accommodation - ENT ENT exam: Present: mucous membranes moist - Neck Neck exam: Present: normal inspection - Respiratory Respiratory exam: Present: CTAB. Absent: rales, respiratory distress, rhonchi, wheezes - Cardiovascular Cardiovascular exam: Present: +S1, +S2, tachycardia. 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 - Psychiatric Psychiatric exam: Present: normal affect, normal mood - Skin Skin exam: Present: dry, intact, normal color, warm Infectious Disease CN: Results - Labs CBC & Chem 7: 11/05/18 04:22 11/04/18 16:02 Cultures: Cultures 11/05/18 09:30 Blood Culture - Preliminary Peripheral Venipuncture Culture is incubating and being continuously monitored for growth. Final report to follow. 11/05/18 09:25 Blood Culture - Preliminary Peripheral Venipuncture Culture is incubating and being continuously monitored for growth. Final report to follow. Serology: Serology 11/04/18 11/04/18 Range/Units 11:19 11:19 Urine Color Dark Yellow (Yellow) Urine Clarity Clear (Clear) Urine pH 5.0 (5.0-8.0) pH Units Ur Specific [place] 1.029 H (1.010-1.025) Urine Protein 30 H (Neg-Trace) mg/dL Urine Glucose (UA) Normal (Normal) mg/dL Urine Ketones Negative (Negative) mg/dL Urine Blood Negative (Negative) Urine Nitrite Negative (Negative) Urine Bilirubin Small H (Negative) Urine Urobilinogen Normal (Normal) mg/dL Ur Leukocyte Esterase Negative (Negative) Urine Microscopic RBC 0-3 (0-3) per hpf Urine Microscopic WBC 0-3 (0-3) per hpf Ur Squamous Epith Cells Many H (None-Few) per lpf Urine Bacteria None Seen (None-Few) per hpf Hyaline Casts Few (None-Few) per lpf Ur Culture Indicated? NO (NO) Urine Test Negative (Negative) Consult Discharge Plan - Plan Referrals: Annalee Carbajal MD [Primary Care Provider] - - Attending Attestation I have personally performed a face to face evaluation on this patient. I have reviewed and agree with the care plan. History and Exam by me shows: Assessment and plan: 1.SIRS 2.Acute pancreatitis Likely secondary to obstructive pancreatitis 3.Muscular dystrophy 4.Cholelithiasis without cholecystitis Recommend: I believe that SIRS is all due to the pancreatitis CT without pancreatic necrosis or pseudocyst HIDA without cholecystitis Its understandable that patient has severe pancreatitis and it would cause fevers and leukocytosis even leukomoid reaction but I dont belive there is an indication to treat with antibiotics at this time We will continue to follow closely RIP negative
--- NOTE | 2018-11-05 12:15 | Internal Med Progress Note ---
Hospitalist Progress Note - Encounter Date of Encounter: 11/05/18 Time of Encounter: 09:50 - Subjective Interval History: Pt seen and examined with family present at bedside. Pt reports of pain being adequately controlled with current pain medications. Denies any nausea or vomiting at this time. Noted to have low grade fever this morning with worsening leukocytosis. ID and GI evaluation has been requested. Ten point ROS is negative except as listed above. - Exam Vitals: Temp Pulse Resp BP Pulse Ox 99.7 F H 112 16 111/71 96 11/05/18 11:49 11/05/18 11:49 11/05/18 11:49 11/05/18 11:49 11/05/18 11:49 Exam: General: No acute distress, alert and oriented to self and family, hx of MRDD, mental status at baseline HEENT: EOMI, NC/AT, no scleral icterus Respiratory: Clear to auscultate bilaterally, no wheezing, no rales Cardiovascular: Regular, Rate, Rhythm, No murmurs GI: Soft, Non tender, non distended, normal bowel sounds Ext: contracted LE Neuro: Alert and oriented - Assessment and Plan (1) Acute pancreatitis Current Visit: Yes Status: Acute Assessment and Plan: CT abd/pelvis: Peripancreatic fat stranding concerning for acute pancreatitis. Clinical and laboratory correlation suggested. No evidence for pancreatic necrosis, focal fluid collection such as pseudocyst or abscess formation, or splenic vein thrombosis. Mild ascites likely reactive relating to the acute pancreatitis. Intrahepatic and extrahepatic biliary ductal dilatation, new from prior exam 09/03/2018. No definite intraductal abnormality noted. This may be secondary to the acute pancreatitis. Clinical and laboratory correlation suggested and consideration could be given to further evaluation with MRCP or ERCP. Cholelithiasis. 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 Small hiatal hernia. GI evaluation requested continue IV fluids, pain management, anti-emetic support as needed continue IV Zosyn NPO at this time ID evaluation requested given worsening Leukocytosis and low grade fever f/u MRCP (2) Sepsis Current Visit: Yes Status: Acute Assessment and Plan: likely secondary to acute pancreatitis continue management as listed above (3) Cholecystitis with cholelithiasis Current Visit: Yes Status: Acute Assessment and Plan: continue supportive care IV fluids, IV Abx GI evaluation requested Pt will likely need ERCP, will defer to GI (4) Hyperglycemia Current Visit: Yes Status: Acute Assessment and Plan: No reported history of DM HbA1C noted noted to be in prediabetic range will start sliding scale insulin algorithm and monitor FS and BG (5) Metabolic acidosis Current Visit: Yes Status: Acute Assessment and Plan: Normal anion gap Metabolic acidosis bicarb deficit; 5.7amp will d/c 0.9% NS and start bicarb drip (3amp in D5W at 150 cc/hr) will closely monitor (6) DVT prophylaxis Current Visit: Yes Status: Acute Assessment and Plan: Heparin SQ - Time Spent with Patient Total time spent is greater than 50% in coordination of care (as documented) at patient's floor/unit and/or counseling patient: 25 - 35 minutes Plan of Care Discussed with: patient (patient/family/RN/case management) Internal Medicine: Result - Labs CBC & Chem 7: 11/05/18 04:22 11/04/18 16:02 Labs: Short CBC 11/05/18 Range/Units 04:22 WBC 41.0 H* (4.3-11.1) K/mcL Hgb 13.4 (11.5-15.4) g/dL Hct 39.9 (35.3-44.9) % Plt Count 371 (140-400) K/mcL Neutrophils # 37.0 H (1.6-8.9) K/mcL BMP 11/04/18 11/04/18 11:09 16:02 Sodium 134 L 132 L Potassium 4.2 4.5 Chloride 107 107 Carbon Dioxide 18 L 16 L BUN 10 8 Creatinine 0.44 L 0.37 L Glucose 189 H 189 H Calcium 8.7 8.2 L Liver Function 11/04/18 11/04/18 11/05/18 Range/Units 11:09 16:02 04:22 Total Bilirubin 0.9 0.6 0.7 (0.3-1.0) mg/dL Direct Bilirubin 0.3 H 0.1 (0.0-0.2) mg/dL AST 229 H 133 H 58 H (13-39) Units/L ALT 105 H 97 H 72 H (7-52) Units/L Alkaline Phosphatase 109 H 97 77 (34-104) Units/L Albumin 3.9 3.8 3.5 (3.5-5.7) g/dL - Impressions Impressions Abdomen/Pelvis CT 11/04/18 11:54 IMPRESSION: Peripancreatic fat stranding concerning for acute pancreatitis. Clinical and laboratory correlation suggested. No evidence for pancreatic necrosis, focal fluid collection such as pseudocyst or abscess formation, or splenic vein thrombosis. Mild ascites likely reactive relating to the acute pancreatitis. Intrahepatic and extrahepatic biliary ductal dilatation, new from prior exam 09/03/2018. No definite intraductal abnormality noted. This may be secondary to the acute pancreatitis. Clinical and laboratory correlation suggested and consideration could be given to further evaluation with MRCP or ERCP. Cholelithiasis. 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 Small hiatal hernia. D/ / 11/04/2018 14:20:07 Jason Grayson MD / [place] Interpreting Provider: Jason Grayson MD Consult Discharge Plan - Plan Referrals: Annalee Carbajal MD [Primary Care Provider] - (1) Acute pancreatitis Qualifiers: Pancreatitis type: biliary Acute pancreatitis complication: no infection or necrosis Qualified Code(s): K85.10 - Biliary acute pancreatitis without necro sis or infection (2) Sepsis Qualifiers: Sepsis type: sepsis due to unspecified organism Qualified Code(s): A41.9 - Sepsis, unspecified organism (3) Cholecystitis with cholelithiasis Qualifiers: Cholelithiasis location: bile duct Cholecystitis acuity: acute and chronic Biliary obstruction: without biliary obstruction Qualified Code(s): K80.46 - Calculus of bile duct with acute and chronic cholecystitis without obstruction
[2018-11-05] MEDS ORDERED: D5% in Water 1,000 ML IVC PRN (12:17)
[2018-11-05] MEDS ORDERED: *HR* Dextrose 50 % in Water (Syg) 50 ML SYRINGE IVP PRN (12:17)
[2018-11-05] MEDS ORDERED: Dextrose Gel 15 GM/37.5 ML TUBE PO PRN ×2 (12:17)
[2018-11-05 12:52] LABS: Adenovirus Not Detected (Not Detect); Bordetella Pertussis Not Detected (Not Detect); Chlamydophila pneumoniae Not Detected (Not Detect); Coronavirus 229E Not Detected (Not Detect); Coronavirus HKU1 Not Detected (Not Detect); Coronavirus NL63 Not Detected (Not Detect); Coronavirus OC43 Not Detected (Not Detect); Human Metapneumovirus Not Detected (Not Detect); Human Rhinovirus/Enterovirus Not Detected (Not Detect); Influenza A Subtype 2009 H1 Not Detected (Not Detect); Influenza A Untypeable Not Detected (Not Detect); Influenza B Not Detected (Not Detect); Mycoplasma pneumoniae Not Detected (Not Detect); Parainfluenza Virus 1 Not Detected (Not Detect); Parainfluenza Virus 2 Not Detected (Not Detect); Parainfluenza Virus 3 Not Detected (Not Detect); Parainfluenza Virus 4 Not Detected (Not Detect); Respiratory Syncytial Virus Not Detected (Not Detect)
[2018-11-05] MEDS: Sodium Bicarbonate 150 MEQ in D5% in Water 1,000 ML IVC SCH ×2 (13:47→14:08)
--- NOTE | 2018-11-05 14:49 | Gastroenterology Consult Note ---
Addendum entered and electronically signed by Orquidea Garcia MD 11/05/18 17:49: Patient seen currently denies any abdominal pain. On examination abdomen is benign. Assessment: Patient with acute pancreatitis with very elevated LFTs MRCP negative for any CBD dilation. Does has a gallstone. #2 very high white count but patient does not look toxic could be just a leukemoid reaction. Recommendation: IV fluid workup for pancreatitis. Surgical input for possible GB surgery Original Note: Date of Encounter: 11/05/18 Time of Encounter: 11:00 - Assessment and plan (1) Acute pancreatitis Current Visit: Yes Status: Acute Assessment and plan: Likely secondary to gallstones. CT A/P with cholelithiasis, peripancreatic fat stranding suggestive of acute pancreatitis, no necrosis or pseudocyst noted, intra-and extrahepatic ductal dilation noted, but no measurements given. MRCP this morning shows gallbladder stones, no biliary ductal dilation or choledocholithiasis, peripancreatic edema consistent with acute pancreatitis. On admission TB 0.9, AST 229, ALT 105, lipase >1800, amylase 1477, WBC 28. Today TB 0.6, AST 133, ALT 97, lipase 1535, amylase 413, WBC 41. Continue IV fluids, pain control, and antiemetics. Check IgG4, VANESSA, triglycerides, and ionized calcium with AM labs. Continue to monitor hepatic panel daily. Keep NPO for now, as patient improves can start clear liquid diet and slowly advance as tolerated. Qualifiers: Pancreatitis type: biliary Acute pancreatitis complication: no infection or necrosis Qualified Code(s): K85.10 - Biliary acute pancreatitis without necrosis or infection - Time Spent With Patient Total time spent is greater than 50% in coordination of care (as documented) at patient's floor/unit and/or counseling patient: GI History of Present Illness - Data of Consult Patient: new to practice Consult date: 11/05/18 Requesting Physician: Romy Santoyo MD - Consult Narrative Reason for consult: Pancreatitis History of present illness: Ms. Douglas is a 43 year old female with PMHx of muscular dystrophy, MRDD who was brought to the ED with abdominal pain, nausea, and vomiting. Family is present at bedside to provide history. Patient had one episode of bilious vomiting. CT A/P with cholelithiasis, peripancreatic fat stranding suggestive of acute pa ncreatitis, no necrosis or pseudocyst noted, intra-and extrahepatic ductal dilation noted, but no measurements given. On admission TB 0.9, AST 229, ALT 105, lipase >1800, amylase 1477, WBC 28. Today patient states her abdominal pain is improved. MRCP this morning shows gallbladder stones, no biliary ductal dilation or choledocholithiasis, peripancreatic edema consistent with acute pancreatitis. No fever, chills, rigors, chest pain, melena, or hematochezia. Procedures: None NSAIDs: None Anticoagulation: None Past Med Surg Social Fam HX - Past Medical History Medical history: other Additional medical history: muscular dystrophy Psychiatric history: no psych history - Past Surgical History Surgical History: no surgical history - Social History Smoking Status: Never smoker Smokeless Tobacco Status: No Alcohol use: none Drug use: none - Family History Brother Name: Jacob Alfaro Family Cardiac Disorders: Yes (HTN, DVT) - Gastrointestinal Gastrointestinal: Present: as per HPI - Constitutional Constitutional: as per HPI - EENT Eyes: as per HPI Ears: Present: as per HPI Nose, mouth and throat: Present: as per HPI - Cardiovascular Cardiovascular ROS: Present: as per HPI - Respiratory Respiratory IM: Present: as per HPI - Genitourinary Genitourinary: Absent: change in color, Urinary frequency - Neurological ROS Neurological GI: Present: as per HPI - Hematologic/Lymphatic Hematologic/Lymphatic pediatric: Present: as per HPI - Musculoskeletal Musculoskeletal ROS GI: Present: as per HPI - Integumentary Integumentary GI: Present: as per HPI - Psychiatric ROS Psychiatric GI: Present: as per HPI - Endocrine Endocrine IM: Present: as per HPI - Constitutional Vitals: Temp Pulse Resp BP Pulse Ox 99.7 F H 112 16 111/71 96 11/05/18 11:49 11/05/18 11:49 11/05/18 11:49 11/05/18 11:49 11/05/18 11:49 General appearance: Present: cooperative, no acute distress, answers questions appropriately Exam: hx of MRDD, mental status at baseline - Head Head exam: Present: atraumatic, normocephalic - Eye Eye exam: Present: normal appearance, sclera anicteric - ENT ENT exam: Present: mucous membranes moist - Neck Neck exam general surgery: Present: normal inspection, trachea midline - Respiratory Respiratory exam: Present: CTAB. Absent: rales, rhonchi - Cardiovascular Cardiovascular exam: Present: RRR, +S1, +S2 - GI/Abdominal GI/Abdominal exam: Present: soft, no peritoneal signs. Absent: distended, firm, guarding, tenderness - Rectal Rectal exam: Present: deferred - Extremities Exam Extremities exam: Present: warm - Neurological Exam Neurological exam: Present: no focal deficits - Psychiatric Psychiatric exam: Present: normal affect, normal mood - Skin Skin exam: Present: dry, intact, normal color, warm Results - Labs CBC & Chem 7: 11/05/18 04:22 11/04/18 16:02 Labs: Last Result Calcium 8.2 mg/dL (8.6-10.3) L 11/04/18 16:02 Triglycerides 122 mg/dL (< 150) 11/04/18 11:09 Entire Visit Hgb 13.4 g/dL (11.5-15.4) 11/05/18 04:22 Hct 39.9 % (35.3-44.9) 11/05/18 04:22 Total Bilirubin 0.7 mg/dL (0.3-1.0) 11/05/18 04:22 AST 58 Units/L (13-39) H 11/05/18 04:22 ALT 72 Units/L (7-52) H 11/05/18 04:22 Amylase 413 Units/L (29-103) H 11/05/18 04:22 Lipase 1535 Units/L (11-82) H 11/05/18 04:22 - Impressions Impressions Abdomen MRI 11/05/18 10:05 IMPRESSION: 1. Gallbladder filled with stones. No secondary findings of acute cholecystitis. 2. No biliary ductal dilatation or choledocholithiasis. 3. Peripancreatic edema, consistent with acute pancreatitis. D/ / Javid Srivastava MD / Javid Srivastava MD Interpreting Provider: Javid Srivastava MD Consult Discharge Plan - Plan Referrals: Annalee Carbajal MD [Primary Care Provider] -
[2018-11-05] MEDS: OXYCODONE Oral CONC 10 MG/0.5 ML ORAL.SYG SL PRN (16:02)
[2018-11-05] MEDS: Insulin LISPRO 300 UNITS/3 ML VIAL SQ SCH (17:37)
[2018-11-05] MEDS: Acetaminophen 325 MG TABLET PO PRN (20:14)
[2018-11-06] MEDS: Insulin LISPRO 300 UNITS/3 ML VIAL SQ SCH ×4 (01:48→19:11)
[2018-11-06] MEDS: Sodium Bicarbonate 150 MEQ in D5% in Water 1,000 ML IVC SCH (01:54)
[2018-11-06] MEDS: OXYCODONE Oral CONC 10 MG/0.5 ML ORAL.SYG SL PRN ×3 (02:01→22:40)
[2018-11-06] MEDS: *HR* Heparin 5,000 UNIT/ML VIAL SQ SCH ×2 (06:11→19:10)
[2018-11-06 06:35] LABS: Mean Corpuscular HGB Conc 33.8 g/dL (31.6-35.5); Mean Platelet Volume 11.1 fL (9.4-12.4); Monocytes % 4.7 %
[2018-11-06 06:37] LABS: Basophils # 0.1 K/mcL (0.0-0.2); Basophils % 0.3 %; Hematocrit 33.7 % (35.3-44.9); Hemoglobin 11.4 g/dL (11.5-15.4); Immature Granulocytes % 1.4 % (0-4); Lymphocytes % 5.6 %; Mean Corpuscular Hemoglobin 28.6 pg (28.0-33.3); Mean Corpuscular Volume 84.5 fL (83.0-100.0); Monocytes # 1.7 K/mcL (0.0-1.3); Neutrophils # 31.6 K/mcL (1.6-8.9); Platelet Count 286 K/mcL (140-400); Red Blood Count 3.99 M/mcL (3.82-4.97); Red Cell Distribution Width 14.3 % (11.5-14.5)
[2018-11-06 06:38] LABS: VBG Ionized Calcium 1.01 mmol/L (1.15-1.35)
[2018-11-06] MEDS ORDERED: Aminoglycoside Consult 1 EACH MC ONE (06:57)
[2018-11-06 07:05] LABS: Alanine Aminotransferase 34 Units/L (7-52); Albumin 2.9 g/dL (3.5-5.7); Alkaline Phosphatase 55 Units/L (34-104); Aspartate Amino Transferase 21 Units/L (13-39); BUN/Creatinine Ratio 11 (6-26); Bilirubin,Total 0.7 mg/dL (0.3-1.0); Blood Urea Nitrogen 5 mg/dL (6-20); Calcium 7.5 mg/dL (8.6-10.3); Carbon Dioxide 28 mEq/L (23-29); Chloride 103 mEq/L (98-107); Glucose 163 mg/dL (70-105); Magnesium 1.8 mg/dL (1.6-2.6); Osmolality,Calculated 283 (280-300); Phosphorous < 1.0 mg/dL (2.7-4.5); Potassium 2.9 mEq/L (3.5-5.1); Sodium 136 mEq/L (136-145); Total Protein 5.9 g/dL (6.4-8.9); Triglycerides 97 mg/dL (< 150); eGFR For Non-African Americans > 60 (> 60)
[2018-11-06 07:22] LABS: Platelet Estimate Normal (Normal)
[2018-11-06] MEDS ORDERED: Potassium Phosphate 44 MEQ in 0.9 % Sodium Chloride 250 ML IVPB ONE (07:24)
[2018-11-06] MEDS: Ondansetron 4 MG/2 ML VIAL IVP PRN ×2 (08:43→22:42)
[2018-11-06] MEDS: Potassium Chloride 20 MEQ, Lidocaine 1% 2 ML in D5% in Water 250 ML IVPB SCH ×3 (08:43→13:10)
--- NOTE | 2018-11-06 10:25 | Infectious Disease Progress No ---
Date of Encounter: 11/06/18 Time of Encounter: 09:10 - Assessment and Plan (1) Sepsis Current Visit: Yes Status: Acute The patient had two SIRS criteria. Likely secondary to acute pancreatitis. Clinically improved, but continues to have tachycardia and fever. Leukocytosis is improved. Blood cultures drawn 11/05/18 are pending x 2 sets. Respiratory infectious panel was negative. Recommendations: Continue to trend WBC, LFTs, and amylipase/lipase. Await further recommendations from the GI team. No indication for antibiotics unless there is necrosis of the pancreas. Supportive care per the primary team. Duration of treatment depends on the clinical picture. Monitor renal function and dose-adjust antibiotics. Qualifiers: Sepsis type: sepsis due to unspecified organism Qualified Code(s): A41.9 - Sepsis, unspecified organism (2) Acute pancreatitis Current Visit: Yes Status: Acute CT of the abdomen and pelvis 11/04/18 showed peripancreatic fat straining concerning for acute pancreatitis with mild ascites likely reactive relating to the acute pancreatitis. It also showed intrahepatic and extrahepatic biliary ductal dilatation, new from prior exam in August. Amylase elevated at 1477. Lipase greater than 1800. MRCP showed a gallbladder filled with stones, but no secondary findings of acute cholecystitis. No biliary ductal dilatation or choledocholithiasis. There was. Pancreatic edema, consistent with acute pancreatitis. Clinically improved. GI consulted and following. Qualifiers: Pancreatitis type: biliary Acute pancreatitis complication: no infection or necrosis Qualified Code(s): K85.10 - Biliary acute pancreatitis without necrosis or infection (3) Cholelithiasis Current Visit: Yes Status: Acute Noted on CT of the abdomen and pelvis. No evidence of cholecystitis noted on CT or MRCP. GI consulted. Gen. surgery consultation pending. 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 No acute events noted overnight. Patient states overall she feels better today. Febrile overnight with a MAXIMUM TEMPERATURE of 102. Denies chills or shivers. Denies headache or neck pain. Denies chest pain, shortness of breath, or cough. Reports some nausea this morning that has improved with antiemetics. Reports some right upper quadrant abdominal pain at this time. Denies oral thrush or any skin lesions. Remains nothing by mouth at this time. Infect Dis PN-Objective Data - Labs CBC & Chem 7: 11/06/18 06:08 11/06/18 06:08 Labs: Laboratory Results - last 24 hr 11/05/18 11/05/18 11/05/18 10:17 13:15 17:20 WBC RBC Hgb Hct MCV MCH MCHC RDW Plt Count MPV Immature Gran % Seg Neutrophils % Lymphocytes % Monocytes % Eosinophils % Basophils % Neutrophils # Lymphocytes # Monocytes # Eosinophils # Basophils # Platelet Estimate Sodium Potassium Chloride Carbon Dioxide BUN Creatinine Est GFR ( Amer) Est GFR (Non-Af Amer) BUN/Creatinine Ratio Glucose POC Glucose 132 H 169 H Calculated Osmolality Calcium Venous Ioniz Calcium Phosphorus Magnesium Total Bilirubin AST ALT Alkaline Phosphatase Serum Total Protein Albumin Globulin Albumin/Globulin Ratio Triglycerides Chlamy pneumoniae PCR Not Detected Adenovirus (PCR) Not Detected B. pertussis DNA (PCR) Not Detected B.parapertussis DNA PCR Not Detected Coronavirus OC43 (PCR) Not Detected Coronavirus HKU1 (PCR) Not Detected Coronavirus 229E (PCR) Not Detected Coronavirus NL63 (PCR) Not Detected Human Metapneumovir PCR Not Detected Influenza A (H1) PCR Not Detected Influ A (H1N1/09) PCR Not Detected Influenza A (H3) PCR Not Detected Influenza A Untype (PCR) Not Detected Influenza Type B (PCR) Not Detected M.pneumoniae DNA (PCR) Not Detected Parainfluenza 1 (PCR) Not Detected Parainfluenza 2 (PCR) Not Detected Parainfluenza 3 (PCR) Not Detected Parainfluenza 4 (PCR) Not Detected RSV (PCR) Not Detected Entero/Rhino (PCR) Not Detected 11/06/18 11/06/18 11/06/18 00:03 06:08 06:08 WBC 35.9 H* RBC 3.99 Hgb 11.4 L D Hct 33.7 L MCV 84.5 MCH 28.6 MCHC 33.8 RDW 14.3 Plt Count 286 MPV 11.1 Immature Gran % 1.4 Seg Neutrophils % 88.0 Lymphocytes % 5.6 Monocytes % 4.7 Eosinophils % 0.0 Basophils % 0.3 Neutrophils # 31.6 H Lymphocytes # 2.0 Monocytes # 1.7 H Eosinophils # 0.0 Basophils # 0.1 Platelet Estimate Normal Sodium 136 Potassium 2.9 L Chloride 103 Carbon Dioxide 28 BUN 5 L Creatinine 0.44 L Est GFR ( Amer) > 60 Est GFR (Non-Af Amer) > 60 BUN/Creatinine Ratio 11 Glucose 163 H POC Glucose 139 H Calculated Osmolality 283 Calcium 7.5 L Venous Ioniz Calcium Phosphorus < 1.0 L* Magnesium 1.8 Total Bilirubin 0.7 AST 21 ALT 34 Alkaline Phosphatase 55 Serum Total Protein 5.9 L Albumin 2.9 L Globulin 3.0 Albumin/Globulin Ratio 1.0 L Triglycerides 97 Chlamy pneumoniae PCR Adenovirus (PCR) B. pertussis DNA (PCR) B.parapertussis DNA PCR Coronavirus OC43 (PCR) Coronavirus HKU1 (PCR) Coronavirus 229E (PCR) Coronavirus NL63 (PCR) Human Metapneumovir PCR Influenza A (H1) PCR Influ A () PCR Influenza A (H3) PCR Influenza A Untype (PCR) Influenza Type B (PCR) M.pneumoniae DNA (PCR) Parainfluenza 1 (PCR) Parainfluenza 2 (PCR) Parainfluenza 3 (PCR) Parainfluenza 4 (PCR) RSV (PCR) Entero/Rhino (PCR) 11/06/18 11/06/18 06:17 06:35 WBC RBC Hgb Hct MCV MCH MCHC RDW Plt Count MPV Immature Gran % Seg Neutrophils % Lymphocytes % Monocytes % Eosinophils % Basophils % Neutrophils # Lymphocytes # Monocytes # Eosinophils # Basophils # Platelet Estimate Sodium Potassium Chloride Carbon Dioxide BUN Creatinine Est GFR ( Amer) Est GFR (Non-Af Amer) BUN/Creatinine Ratio Glucose POC Glucose 142 H Calculated Osmolality Calcium Venous Ioniz Calcium 1.01 L Phosphorus Magnesium Total Bilirubin AST ALT Alkaline Phosphatase Serum Total Protein Albumin Globulin Albumin/Globulin Ratio Triglycerides Chlamy pneumoniae PCR Adenovirus (PCR) B. pertussis DNA (PCR) B.parapertussis DNA PCR Coronavirus OC43 (PCR) Coronavirus HKU1 (PCR) Coronavirus 229E (PCR) Coronavirus NL63 (PCR) Human Metapneumovir PCR Influenza A (H1) PCR Influ A () PCR Influenza A (H3) PCR Influenza A Untype (PCR) Influenza Type B (PCR) M.pneumoniae DNA (PCR) Parainfluenza 1 (PCR) Parainfluenza 2 (PCR) Parainfluenza 3 (PCR) Parainfluenza 4 (PCR) RSV (PCR) Entero/Rhino (PCR) Cultures: Cultures 11/05/18 09:30 Blood Culture - Preliminary Peripheral Venipuncture Culture is incubating and being continuously m onitored for growth. Final report to follow. 11/05/18 09:25 Blood Culture - Preliminary Peripheral Venipuncture Culture is incubating and being continuously monitored for growth. Final report to follow. Serology 11/05/18 11/04/18 11/04/18 Range/Units 10:17 11:19 11:19 Urine Color Dark Yellow (Yellow) Urine Clarity Clear (Clear) Urine pH 5.0 (5.0-8.0) pH Units Ur Specific [place] 1.029 H (1.010-1.025) Urine Protein 30 H (Neg-Trace) mg/dL Urine Glucose (UA) Normal (Normal) mg/dL Urine Ketones Negative (Negative) mg/dL Urine Blood Negative (Negative) Urine Nitrite Negative (Negative) Urine Bilirubin Small H (Negative) Urine Urobilinogen Normal (Normal) mg/dL Ur Leukocyte Esterase Negative (Negative) Urine Microscopic RBC 0-3 (0-3) per hpf Urine Microscopic WBC 0-3 (0-3) per hpf Ur Squamous Epith Cells Many H (None-Few) per lpf Urine Bacteria None Seen (None-Few) per hpf Hyaline Casts Few (None-Few) per lpf Ur Culture Indicated? NO (NO) Urine Test Negative (Negative) Chlamy pneumoniae PCR Not Detected (Not Detect) Adenovirus (PCR) Not Detected (Not Detect) B. pertussis DNA (PCR) Not Detected (Not Detect) B.parapertussis DNA PCR Not Detected (Not Detect) Coronavirus OC43 (PCR) Not Detected (Not Detect) Coronavirus HKU1 (PCR) Not Detected (Not Detect) Coronavirus 229E (PCR) Not Detected (Not Detect) Coronavirus NL63 (PCR) Not Detected (Not Detect) Human Metapneumovir PCR Not Detected (Not Detect) Influenza A (H1) PCR Not Detected (Not Detect) Influ A (H1N1/09) PCR Not Detected (Not Detect) Influenza A (H3) PCR Not Detected (Not Detect) Influenza A Untype (PCR) Not Detected (Not Detect) Influenza Type B (PCR) Not Detected (Not Detect) M.pneumoniae DNA (PCR) Not Detected (Not Detect) Parainfluenza 1 (PCR) Not Detected (Not Detect) Parainfluenza 2 (PCR) Not Detected (Not Detect) Parainfluenza 3 (PCR) Not Detected (Not Detect) Parainfluenza 4 (PCR) Not Detected (Not Detect) RSV (PCR) Not Detected (Not Detect) Entero/Rhino (PCR) Not Detected (Not Detect) - Impressions Impressions Abdomen MRI 11/05/18 10:05 IMPRESSION: 1. Gallbladder filled with stones. No secondary findings of acute cholecystitis. 2. No biliary ductal dilatation or choledocholithiasis. 3. Peripancreatic edema, consistent with acute pancreatitis. D/ / Javid Srivastava MD / Javid Srivastava MD Interpreting Provider: Javid Srivastava MD Chest X-Ray 11/05/18 17:25 IMPRESSION: Linear left basilar atelectasis. Otherwise no acute abnormality. D/ / Stan Kline MD / Stan Kline MD Interpreting Provider: Stan Kline MD Exam - Constitutional Vitals: Temp Pulse Resp BP Pulse Ox 97.6 F 110 16 138/87 91 11/06/18 06:53 11/06/18 06:53 11/06/18 06:53 11/06/18 06:53 11/06/18 06:53 General appearance: cooperative, morbidly obese, no acute distress - Head Head exam: Present: atraumatic, normal inspection, normocephalic - Eye Eye exam: Present: PERRL Pupils: Present: normal accommodation - ENT ENT exam: Present: mucous membranes moist - Neck Neck exam: Present: normal inspection - Respiratory Respiratory exam: Present: CTAB. Absent: rales, respiratory distress, rhonchi, wheezes - Cardiovascular Cardiovascular exam: Present: +S1, +S2, tachycardia. 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 I have reviewed and agree with the care plan. History and Exam by me shows: Assessment and plan: 1.SIRS 2.Acute pancreatitis Likely secondary to obstructive pancreatitis 3.Muscular dystrophy 4.Cholelithiasis without cholecystitis Recommend: I believe that SIRS is all due to the pancreatitis CT without pancreatic necrosis or pseudocyst HIDA without cholecystitis Its understandable that patient has severe pancreatitis and it would cause fevers and leukocytosis even leukomoid reaction but I dont belive there is an indication to treat with antibiotics at this time We will continue to follow closely RIP negative
--- NOTE | 2018-11-06 14:14 | Internal Med Progress Note ---
Hospitalist Progress Note - Encounter Date of Encounter: 11/06/18 Time of Encounter: 13:05 - Subjective Interval History: Pt seen and examined with family present at bedside. Pt reports of feeling better compared to previous day. As per pt's brother (present at bedside), pt is requiring pain medications less frequently. Pt reports of feeling hungry and requests to initiate a diet. denies any nausea or vomiting at this time. No overnight events reported Ten point ROS negative except as listed above - Exam Vitals: Temp Pulse Resp BP Pulse Ox 98.3 F 109 16 150/76 94 11/06/18 11:43 11/06/18 11:43 11/06/18 11:43 11/06/18 11:43 11/06/18 11:43 Exam: General: No acute distress, alert and oriented to self and family, hx of MRDD, mental status at baseline HEENT: EOMI, NC/AT, no scleral icterus Respiratory: Clear to auscultate bilaterally, no wheezing, no rales Cardiovascular: Regular, Rate, Rhythm, No murmurs GI: Soft, Non tender, non distended, normal bowel sounds Ext: contracted LE Neuro: Alert and oriented - Assessment and Plan (1) Acute pancreatitis Current Visit: Yes Status: Acute Assessment and Plan: CT abd/pelvis: Peripancreatic fat stranding concerning for acute pancreatitis. Clinical and laboratory correlation suggested. No evidence for pancreatic necrosis, focal fluid collection such as pseudocyst or abscess formation, or splenic vein thrombosis. Mild ascites likely reactive relating to the acute pancreatitis. Intrahepatic and extrahepatic biliary ductal dilatation, new from prior exam 09/03/2018. No definite intraductal abnormality noted. This may be secondary to the acute pancreatitis. Clinical and laboratory correlation suggested and consideration could be given to further evaluation with MRCP or ERCP. Cholelithiasis. 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 Small hiatal hernia. GI evaluation appreciated continue IV fluids, pain management, anti-emetic support as needed clinically improving MRCP reviewed, GI evaluation requested for further evaluation of cholelithiasis and possible cholecystectomy ID evaluation appreciated will start clear liquid diet (2) Sepsis Current Visit: Yes Status: Acute Assessment and Plan: likely secondary to acute pancreatitis continue management as listed above (3) Cholecystitis with cholelithiasis Current Visit: Yes Status: Acute Assessment and Plan: cholecytitis ruled out Cholelithiasis reported on MRCP will obtain general surgery evaluation for a possible cholecystectomy (4) Hyperglycemia Current Visit: Yes Status: Acute Assessment and Plan: BG better controlled No reported history of DM HbA1C noted noted to be in prediabetic range continue sliding scale insulin algorithm and monitor FS and BG (5) Metabolic acidosis Current Visit: Yes Status: Resolved Assessment and Plan: resolved discontinue bicarb drip (6) DVT prophylaxis Current Visit: Yes Status: Acute Assessment and Plan: Heparin SQ (7) Electrolyte abnormality Current Visit: Yes Status: Acute Assessment and Plan: Hypokalemia and Hypophosphatemia K and phos supplemented will repeat levels this evening will continue to closely monitor electrolytes and replace as needed DVT Prophylaxis: Heparin SQ - Time Spent with Patient Total time spent is greater than 50% in coordination of care (as documented) at patient's floor/unit and/or counseling patient: 25 - 35 minutes Plan of Care Discussed with: patient (patient/family/RN/case management) Internal Medicine: Result - Labs CBC & Chem 7: 11/06/18 06:08 11/06/18 06:08 Labs: Short CBC 11/06/18 Range/Units 06:08 WBC 35.9 H* (4.3-11.1) K/mcL Hgb 11.4 L D (11.5-15.4) g/dL Hct 33.7 L (35.3-44.9) % Plt Count 286 (140-400) K/mcL Neutrophils # 31.6 H (1.6-8.9) K/mcL BMP 11/06/18 06:08 Sodium 136 Potassium 2.9 L Chloride 103 Carbon Dioxide 28 BUN 5 L Creatinine 0.44 L Glucose 163 H Calcium 7.5 L Liver Function 11/06/18 Range/Units 06:08 Total Bilirubin 0.7 (0.3-1.0) mg/dL AST 21 (13-39) Units/L ALT 34 (7-52) Units/L Alkaline Phosphatase 55 (34-104) Units/L Albumin 2.9 L (3.5-5.7) g/dL - Impressions Impressions Abdomen MRI 11/05/18 10:05 IMPRESSION: 1. Gallbladder filled with stones. No secondary findings of acute cholecystitis. 2. No biliary ductal dilatation or choledocholithiasis. 3. Peripancreatic edema, consistent with acute pancreatitis. D/ / Javid Srivastava MD / Javid Srivastava MD Interpreting Provider: Javid Srivastava MD Chest X-Ray 11/05/18 17:25 IMPRESSION: Linear left basilar atelectasis. Otherwise no acute abnormality. D/ / Stan Kline MD / Stan Kline MD Interpreting Provider: Stan Kline MD Consult Discharge Plan - Plan Referrals: Annalee Carbajal MD [Primary Care Provider] - (1) Acute pancreatitis Qualifiers: Pancreatitis type: biliary Acute pancreatitis complication: no infection or necrosis Qualified Code(s): K85.10 - Biliary acute pancreatitis without necrosis or infection (2) Sepsis Qualifiers: Sepsis type: sepsis due to unspecified organism Qualified Code(s): A41.9 - Sepsis, unspecified organism (3) Cholecystitis with cholelithiasis Qualifiers: Cholelithiasis location: bile duct Cholecystitis acuity: acute and chronic Biliary obstruction: without biliary obstruction Qualified Code(s): K80.46 - Calculus of bile duct with acute and chronic cholecystitis without obstruction
[2018-11-06] MEDS: 0.9 % Sodium Chloride 1,000 ML IVC SCH (16:23)
[2018-11-06 17:20] LABS: BUN/Creatinine Ratio 11 (6-26); Blood Urea Nitrogen 4 mg/dL (6-20); Calcium 7.6 mg/dL (8.6-10.3); Carbon Dioxide 23 mEq/L (23-29); Chloride 103 mEq/L (98-107); Glucose 135 mg/dL (70-105); Osmolality,Calculated 275 (280-300); Phosphorous 1.8 mg/dL (2.7-4.5); Potassium 3.7 mEq/L (3.5-5.1); Sodium 133 mEq/L (136-145); eGFR For Non-African Americans > 60 (> 60)
--- NOTE | 2018-11-06 17:37 | Event Note ---
Date of Encounter: 11/06/18 Time of Encounter: 17:29 Surgical consultation placed for this 43-year-old intellectually challenged patient for further evaluation and treatment of acute pancreatitis. The patient apparently presented to the [facility] ED, 11/04/18 with progressive abdominal pain, nausea and vomiting. Laboratory abdominal for WBC of 28.0 with neutrophils 25.4. Hemoglobin 13.4, hematocrit 40.6. H notable for sodium of 132, BUN 8, creatinine 0.37. Total bilirubin 0.6 with AST 133, ALT 97, alkaline phosphatase 97. Amylase 1477, lipase greater than 1800. CT abdomen and pelvis shows gallbladder with many gallstones, extra and intrahepatic biliary duct dilatation with no evident pancreatic ductal dilatation. Pancreatic fat stranding consistent with acute pancreatitis is evident. MRCP completed the following day, 11/05/18, shows gallbladder filled with stonesand significant pericholecystic edema or wall thickening. There is peripancreatic edema without peripancreatic fluid collection or obvious biliary duct dilatation. No choledocholithiasis was definitively identified. Since hospital admission, white count peaked at 41,000 with 37.0 neutrophils. Currently white count is 35.9 with 31.6 neutrophils. The patient developed profound hypophosphatemia which has been addressed with IV supplements. Current phosphate is still low at 1.8. LFTs have normalized but most recent amylase is still elevated at 413, lipase 1535. On my brief examination the patient was extender in the epigastrium and periumbilical abdomen. I am aware of the surgical consultation and will follow along with you. The patient has acute pancreatitis with cholelithiasis. It is not clear whether this is gallstone pancreatitis in light of the CT and MRCP findings. The gastroenterologic consultation was reviewed. I will reexamine the patient in the a.m. and check labs. This may become a prolonged hospitalization waiting for the pancreatitis to resolve. The patient may require total parenteral nutrition if the enteral route does not become available in the next several days. Further recommendations will be forthcoming based on my reexamination of the patient and the patient's response to the current medical management.
[2018-11-06] MEDS: Fluticasone Propionate Nasal 50 MCG/SPRAY BOTTLE NS SCH (19:11)
[2018-11-07] MEDS: 0.9 % Sodium Chloride 1,000 ML IVC SCH ×4 (00:55→22:25)
[2018-11-07] MEDS: Insulin LISPRO 300 UNITS/3 ML VIAL SQ SCH ×4 (00:58→17:40)
[2018-11-07 06:48] LABS: Basophils % 0.2 %; Hemoglobin 11.1 g/dL (11.5-15.4); Red Cell Distribution Width 13.8 % (11.5-14.5)
[2018-11-07 06:49] LABS: Basophils # 0.1 K/mcL (0.0-0.2); Eosinophils % 0.1 %; Hematocrit 33.1 % (35.3-44.9); Immature Granulocytes % 1.3 % (0-4); Lymphocytes % 6.4 %; Mean Corpuscular HGB Conc 33.5 g/dL (31.6-35.5); Mean Corpuscular Hemoglobin 28.9 pg (28.0-33.3); Mean Corpuscular Volume 86.2 fL (83.0-100.0); Mean Platelet Volume 11.2 fL (9.4-12.4); Monocytes # 1.4 K/mcL (0.0-1.3); Monocytes % 4.6 %; Neutrophils # 26.7 K/mcL (1.6-8.9); Platelet Count 270 K/mcL (140-400); Red Blood Count 3.84 M/mcL (3.82-4.97); Segmented Neutrophils % 87.4 %
[2018-11-07] MEDS: Ondansetron 4 MG/2 ML VIAL IVP PRN ×2 (06:53→22:20)
[2018-11-07 07:09] LABS: Alanine Aminotransferase 23 Units/L (7-52); Albumin 2.9 g/dL (3.5-5.7); Albumin/Globulin Ratio 0.9 (1.1-2.2); Alkaline Phosphatase 57 Units/L (34-104); Aspartate Amino Transferase 16 Units/L (13-39); BUN/Creatinine Ratio 12 (6-26); Bilirubin,Total 0.8 mg/dL (0.3-1.0); Blood Urea Nitrogen 4 mg/dL (6-20); Calcium 7.7 mg/dL (8.6-10.3); Carbon Dioxide 20 mEq/L (23-29); Chloride 103 mEq/L (98-107); Globulin 3.2 g/dL (2.4-3.5); Glucose 126 mg/dL (70-105); Lipase 86 Units/L (11-82); Magnesium 1.8 mg/dL (1.6-2.6); Osmolality,Calculated 274 (280-300); Phosphorous 1.7 mg/dL (2.7-4.5); Potassium 3.2 mEq/L (3.5-5.1); Sodium 133 mEq/L (136-145); Total Protein 6.1 g/dL (6.4-8.9); eGFR For Non-African Americans > 60 (> 60)
[2018-11-07 07:17] LABS: Platelet Estimate Normal (Normal)
[2018-11-07] MEDS: *HR* Heparin 5,000 UNIT/ML VIAL SQ SCH ×2 (07:54→17:40)
[2018-11-07] MEDS: Fluticasone Propionate Nasal 50 MCG/SPRAY BOTTLE NS SCH (07:55)
[2018-11-07] MEDS ORDERED: Potassium Phosphate 44 MEQ in 0.9 % Sodium Chloride 250 ML IVPB ONE (08:34)
--- NOTE | 2018-11-07 12:06 | General Surgery Consult Note ---
Date of Encounter: 11/07/18 Time of Encounter: 11:51 History of Present Illness Reason for consult: gallstones (Pancreatitis) Requesting physician: Romy Santoyo History of present illness: 43-year-old, referred for further surgical evaluation and treatment after presenting to [facility] ED with approximately a 6 day history of progressive abdominal pain, nausea and vomiting. The patient is intellectually impaired, with known history of cholelithiasis. On presentation to the emergency department white count was 28.0 with 25.4 neutrophils. Hemogram was normal as was platelet count. Electrolytes are notable for sodium of 132, potassium 4.5, BUN 8, creatinine 0.37. Bilirubin was normal at 0.6 AST was 133, ALT 97. Amylase was markedly elevated at 1477 and lipase was greater than 1800. CT abdomen and pelvis demonstrated gallbladder with stones without obvious pericholecystic fluid or ductal dilatation. Extrahepatic and intrahepatic bili duct dilatation was noted along with peripancreatic fat stranding consistent with acute pancreatitis. The patient underwent MRCP the following day. There was no detected choledocholithiasis or biliary duct dilatation however the peripancreatic edema consistent with acute pancreatitis was again observed as was the gallbladder filled with gallstones. I saw the patient yesterday and she was still in considerable distress due to upper abdominal pain. WBC had risen to as high as 41,000 with 37.0 neutrophils 11/05/18. Since that time, her white count has been trending downward and is currently 30.5, neutrophils had improved to 26.7. Hemoglobin is currently 11.0 with hematocrit 33.1. Platelet count 270,000. Abnormalities are notable for a potassium of 3.2 but otherwise have remained stable, BUN 4, creatinine 0.3. Bilirubin is 0.8, AST is normal at 16, ALT 23, alkaline phosphatase 57. Amylase is also normalized to 73, lipase is markedly improved 86. On examination the patient's abdominal pain has resolved. Past medical history: Muscular dystrophy, with associated intellectual i mpairment. Surgical history: No previous surgeries Allergies: No known drug allergies Medications: The patient is on no known home at Social history: She lives at home with her family; one of her sisters is POA. She does not smoke, drink alcohol, or use illicit drugs. Family history: Brother is known to have complicated gallbladder history treated by me many years ago. On physical examination: 43-year-old female resting comfortably in her hospital bed. She denies any abdominal pain. She is extremely short statured. She is overweight; currently afebrile at 97.7, pulse 94 but it has been as high as 113, respirations 17 and unlabored, blood pressure 168/74. Skin is warm without obvious jaundice. Lungs: Clear to auscultation Cardiac: Rate currently regular without obvious murmur Abdomen is obese, soft, nontender. No obvious intra-abdominal masses. No rebound. Bowel sounds are active; the patient is tolerating clear liquids. Labs as noted above CT and MRI were reviewed with [place] [facility]. Impression: 43-year-old with a strip of cholelithiasis presents to [facility] with acute abdominal pain, nausea and vomiting with radiologic and chemical evidence of acute pancreatitis. Most likely etiology is gallstone pancreatitis though MRCP failed to demonstrate any choledocholithiasis. The acute symptoms have subsided to white count is still markedly elevated. The patient is no also notably hypokalemic and hypophosphatemic. Recommendations: Continue clear liquids; to not advance diet address electrolyte abnormalities - potassium and phosphate If patient remains stable. Cholecystectomy in a.m. The patient is a reasonable candidate for laparoscopic cholecystectomy but family understands an open cholecystectomy may become necessary. Risks include hemorrhage, infection, intra-abdominal abscess, bile leak, injury to adjacent ducts, vessels, organs, and bowel. Additional risks include cardiac dysrhythmias, pneumonia/respiratory failure. Past Med Surg Social Fam HX - Past Medical History Medical history: other Additional medical history: muscular dystrophy Psychiatric history: no psych history - Past Surgical History Surgical History: no surgical history - Social History Smoking Status: Never smoker Smokeless Tobacco Status: No Alcohol use: none Drug use: none - Family History Brother Name: Jacob Alfaro Family Cardiac Disorders: Yes (HTN, DVT) Medications and Allergies No Known Home Drugs 11/04/18 [History] Allergy/AdvReac Type Severity Reaction Status Date / Time No Known Allergies Allergy Verified 05/23/16 10:33 Review of Systems All systems PM: The remainder of the systems were reviewed and are negative General Surgery Exam Initial Vital Signs Temp Pulse Resp BP Pulse Ox 97.9 F 91 17 146/98 98 11/04/18 10:13 11/04/18 10:13 11/04/18 10:13 11/04/18 10:13 11/04/18 10:13 Exam Initial Vital Signs Temp Pulse Resp BP Pulse Ox 97.9 F 91 17 146/98 98 11/04/18 10:13 11/04/18 10:13 11/04/18 10:13 11/04/18 10:13 11/04/18 10:13 Results - Labs 11/07/18 06:26 11/07/18 06:26 Abnormal lab results WBC 30.5 K/mcL (4.3-11.1) H* 11/07/18 06:26 Hgb 11.1 g/dL (11.5-15.4) L 11/07/18 06:26 Hct 33.1 % (35.3-44.9) L 11/07/18 06:26 Neutrophils # 26.7 K/mcL (1.6-8.9) H 11/07/18 06:26 Monocytes # 1.4 K/mcL (0.0-1.3) H 11/07/18 06:26 Reactive Lymphocytes Present (Not Present) A 11/05/18 04:22 Sodium 133 mEq/L (136-145) L 11/07/18 06:26 Potassium 3.2 mEq/L (3.5-5.1) L 11/07/18 06:26 Carbon Dioxide 20 mEq/L (23-29) L 11/07/18 06:26 BUN 4 mg/dL (6-20) L 11/07/18 06:26 Creatinine 0.33 mg/dL (0.60-1.20) L 11/07/18 06:26 Glucose 126 mg/dL (70-105) H 11/07/18 06:26 POC Glucose 126 mg/dL (70-99) H 11/06/18 11:42 Hemoglobin A1c 5.8 % (-5.6) H 11/05/18 04:22 Calculated Osmolality 274 (280-300) L 11/07/18 06:26 Calcium 7.7 mg/dL (8.6-10.3) L 11/07/18 06:26 Venous Ioniz Calcium 1.01 mmol/L (1.15-1.35) L 11/06/18 06:35 Phosphorus 1.7 mg/dL (2.7-4.5) L 11/07/18 06:26 Serum Total Protein 6.1 g/dL (6.4-8.9) L 11/07/18 06:26 Albumin 2.9 g/dL (3.5-5.7) L 11/07/18 06:26 Albumin/Globulin Ratio 0.9 (1.1-2.2) L 11/07/18 06:26 LDL Cholesterol, Calc 119 mg/dL (0-99) H 11/04/18 11:09 Lipase 86 Units/L (11-82) H 11/07/18 06:26 Ur Specific Kirby 1.029 (1.010-1.025) H 11/04/18 11:19 Urine Protein 30 mg/dL (Neg-Trace) H 11/04/18 11:19 Urine Bilirubin Small (Negative) H 11/04/18 11:19 Ur Squamous Epith Cells Many per lpf (None-Few) H 11/04/18 11:19 Diabetes panel 11/06/18 11/07/18 Range/Units 16:30 06:26 Sodium 133 L 133 L (136-145) mEq/L Potassium 3.7 D 3.2 L (3.5-5.1) mEq/L Chloride 103 103 (98-107) mEq/L Carbon Dioxide 23 20 L (23-29) mEq/L BUN 4 L 4 L (6-20) mg/dL Creatinine 0.35 L 0.33 L (0.60-1.20) mg/dL Glucose 135 H 126 H (70-105) mg/dL Calcium 7.6 L 7.7 L (8.6-10.3) mg/dL AST 16 (13-39) Units/L ALT 23 (7-52) Units/L Alkaline Phosphatase 57 (34-104) Units/L Albumin 2.9 L (3.5-5.7) g/dL Calcium panel 11/06/18 11/07/18 Range/Units 16:30 06:26 Calcium 7.6 L 7.7 L (8.6-10.3) mg/dL Phosphorus 1.8 L 1.7 L (2.7-4.5) mg/dL Albumin 2.9 L (3.5-5.7) g/dL Pituitary panel 11/06/18 11/07/18 Range/Units 16:30 06:26 Sodium 133 L 133 L (136-145) mEq/L Potassium 3.7 D 3.2 L (3.5-5.1) mEq/L Chloride 103 103 (98-107) mEq/L Carbon Dioxide 23 20 L (23-29) mEq/L BUN 4 L 4 L (6-20) mg/dL Creatinine 0.35 L 0.33 L (0.60-1.20) mg/dL Glucose 135 H 126 H (70-105) mg/dL Calcium 7.6 L 7.7 L (8.6-10.3) mg/dL Adrenal panel 11/06/18 11/07/18 Range/Units 16:30 06:26 Sodium 133 L 133 L (136-145) mEq/L Potassium 3.7 D 3.2 L (3.5-5.1) mEq/L Chloride 103 103 (98-107) mEq/L Carbon Dioxide 23 20 L (23-29) mEq/L BUN 4 L 4 L (6-20) mg/dL Creatinine 0.35 L 0.33 L (0.60-1.20) mg/dL Glucose 135 H 126 H (70-105) mg/dL Calcium 7.6 L 7.7 L (8.6-10.3) mg/dL Total Bilirubin 0.8 (0.3-1.0) mg/dL AST 16 (13-39) Units/L ALT 23 (7-52) Units/L Alkaline Phosphatase 57 (34-104) Units/L Albumin 2.9 L (3.5-5.7) g/dL All other labs normal. Consult Discharge Plan - Plan Referrals: Annalee Carbajal MD [Primary Care Provider] -
[2018-11-07] MEDS: Piperacillin/Tazobactam 3.375 GM in 0.9 % Sodium Chloride Mini Bag 100 ML IVPB SCH ×2 (13:39→20:47)
[2018-11-07] MEDS: Acetaminophen 325 MG TABLET PO PRN (13:58)
--- NOTE | 2018-11-07 14:26 | Internal Med Progress Note ---
Hospitalist Progress Note - Encounter Date of Encounter: 11/07/18 Time of Encounter: 13:46 - Subjective Interval History: Pt seen and examined with brother present at bedside. Pt reports of pain being appropriately controlled. Reports of having menstrual cramps. Tolerating clear liquid diet well. No overnight events reported. Ten point ROS negative except as listed above. Surgery consultation appreciated, pt scheduled for tentative Laproscopic cholecystectomy in am. NPO after midnight. - Exam Vitals: Temp Pulse Resp BP Pulse Ox 97.7 F 94 17 168/74 95 11/07/18 10:35 11/07/18 10:35 11/07/18 10:35 11/07/18 10:35 11/07/18 10:35 Exam: General: No acute distress, alert and oriented to self and family, hx of MRDD, mental status at baseline HEENT: EOMI, NC/AT, no scleral icterus Respiratory: Clear to auscultate bilaterally, no wheezing, no rales Cardiovascular: Regular, Rate, Rhythm, No murmurs GI: Soft, Non tender, non distended, normal bowel sounds Ext: contracted LE Neuro: Alert and oriented - Assessment and Plan (1) Acute pancreatitis Current Visit: Yes Status: Acute Assessment and Plan: CT abd/pelvis: Peripancreatic fat stranding concerning for acute pancreatitis. Clinical and laboratory correlation suggested. No evidence for pancreatic necrosis, focal fluid collection such as pseudocyst or abscess formation, or splenic vein thrombosis. Mild ascites likely reactive relating to the acute pancreatitis. Intrahepatic and extrahepatic biliary ductal dilatation, new from prior exam 09/03/2018. No definite intraductal abnormality noted. This may be secondary to the acute pancreatitis. Clinical and laboratory correlation suggested and consideration could be given to further evaluation with MRCP or ERCP. Cholelithiasis. 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 Small hiatal hernia. GI evaluation appreciated continue IV fluids, pain management, anti-emetic support as needed clinically improving MRCP reviewed, GI evaluation requested for further evaluation of cholelithiasis and possible cholecystectomy ID evaluation appreciated continue clear liquid diet (2) Sepsis Current Visit: Yes Status: Acute Assessment and Plan: likely secondary to acute pancreatitis continue management as listed above (3) Cholecystitis with cholelithiasis Current Visit: Yes Status: Acute Assessment and Plan: cholecytitis ruled out Cholelithiasis reported on MRCP Surgery evaluation appreciated tentatively scheduled for laproscopic cholecystectomy in am (11/08/18) NPO after midnight (4) Hyperglycemia Current Visit: Yes Status: Acute Assessment and Plan: BG better controlled No reported history of DM HbA1C noted noted to be in prediabetic range continue sliding scale insulin algorithm and monitor FS and BG (5) Metabolic acidosis Current Visit: Yes Status: Acute (6) DVT prophylaxis Current Visit: Yes Status: Acute Assessment and Plan: Heparin SQ (7) Electrolyte abnormality Current Visit: Yes Status: Acute Assessment and Plan: Hypokalemia and Hypophosphatemia K and phos supplemented will continue to closely monitor electrolytes and replace as needed DVT Prophylaxis: Heparin SQ - Time Spent with Patient Total time spent is greater than 50% in coordination of care (as documented) at patient's floor/unit and/or counseling patient: Plan of Care Discussed with: patient (patient/family/RN) Internal Medicine: Result - Labs CBC & Chem 7: 11/07/18 06:26 11/07/18 06:26 Labs: Short CBC 11/07/18 Range/Units 06:26 WBC 30.5 H* (4.3-11.1) K/mcL Hgb 11.1 L (11.5-15.4) g/dL Hct 33.1 L (35.3-44.9) % Plt Count 270 (140-400) K/mcL Neutrophils # 26.7 H (1.6-8.9) K/mcL BMP 11/06/18 11/07/18 16:30 06:26 Sodium 133 L 133 L Potassium 3.7 D 3.2 L Chloride 103 103 Carbon Dioxide 23 20 L BUN 4 L 4 L Creatinine 0.35 L 0.33 L Glucose 135 H 126 H Calcium 7.6 L 7.7 L Liver Function 11/07/18 Range/Units 06:26 Total Bilirubin 0.8 (0.3-1.0) mg/dL AST 16 (13-39) Units/L ALT 23 (7-52) Units/L Alkaline Phosphatase 57 (34-104) Units/L Albumin 2.9 L (3.5-5.7) g/dL Consult Discharge Plan - Plan Referrals: Annalee Carbajal MD [Primary Care Provider] - (1) Acute pancreatitis Qualifiers: Pancreatitis type: biliary Acute pancreatitis complication: no infection or necrosis Qualified Code(s): K85.10 - Biliary acute pancreatitis without necrosis or infection (2) Sepsis Qualifiers: Sepsis type: sepsis due to unspecified organism Qualified Code(s): A41.9 - Sepsis, unspecified organism (3) Cholecystitis with cholelithiasis Qualifiers: Cholelithiasis location: bile duct Cholecystitis acuity: acute and chronic Biliary obstruction: without biliary obstruction Qualified Code(s): K80.46 - Calculus of bile duct with acute and chronic cholecystitis without obstruction
[2018-11-07] MEDS: OXYCODONE Oral CONC 10 MG/0.5 ML ORAL.SYG SL PRN (22:21)
[2018-11-08] MEDS: Acetaminophen 325 MG TABLET PO PRN (00:06)
[2018-11-08] MEDS: Insulin LISPRO 300 UNITS/3 ML VIAL SQ SCH ×7 (00:08→20:22)
[2018-11-08 04:08] LABS: Basophils # 0.1 K/mcL (0.0-0.2); Basophils % 0.3 %; Eosinophils # 0.2 K/mcL (0.0-0.6); Eosinophils % 0.7 %; Hematocrit 29.6 % (35.3-44.9); Immature Granulocytes % 0.8 % (0-4); Lymphocytes % 8.5 %; Mean Corpuscular HGB Conc 33.8 g/dL (31.6-35.5); Mean Corpuscular Hemoglobin 28.8 pg (28.0-33.3); Mean Corpuscular Volume 85.3 fL (83.0-100.0); Mean Platelet Volume 10.8 fL (9.4-12.4); Monocytes # 1.3 K/mcL (0.0-1.3); Monocytes % 5.3 %; Neutrophils # 20.2 K/mcL (1.6-8.9); Platelet Count 289 K/mcL (140-400); Red Blood Count 3.47 M/mcL (3.82-4.97); Red Cell Distribution Width 13.6 % (11.5-14.5); Segmented Neutrophils % 84.4 %
[2018-11-08 04:26] LABS: Platelet Estimate Normal (Normal)
[2018-11-08 04:32] LABS: Amylase 31 Units/L (29-103); BUN/Creatinine Ratio 14 (6-26); Blood Urea Nitrogen 4 mg/dL (6-20); Calcium 7.4 mg/dL (8.6-10.3); Carbon Dioxide 21 mEq/L (23-29); Chloride 105 mEq/L (98-107); Glucose 128 mg/dL (70-105); Lipase 29 Units/L (11-82); Magnesium 1.8 mg/dL (1.6-2.6); Osmolality,Calculated 279 (280-300); Phosphorous 2.2 mg/dL (2.7-4.5); Sodium 135 mEq/L (136-145); eGFR For Non-African Americans > 60 (> 60)
[2018-11-08] MEDS: Piperacillin/Tazobactam 3.375 GM in 0.9 % Sodium Chloride Mini Bag 100 ML IVPB SCH ×3 (05:28→20:25)
[2018-11-08] MEDS: *HR* Heparin 5,000 UNIT/ML VIAL SQ SCH (05:28)
[2018-11-08] MEDS ORDERED: *HR* Midazolam HCl 2 MG/2 ML VIAL ONE (08:30)
[2018-11-08] MEDS ORDERED: *HR* FentaNYL (PF) 100 MCG/2 ML VIAL ONE (08:30)
[2018-11-08] MEDS ORDERED: *HR* Propofol 200 MG/20 ML VIAL IVP ONE ×2 (08:30→10:39)
[2018-11-08] MEDS ORDERED: Dexamethasone 4 MG/ML VIAL ONE (08:33)
[2018-11-08] MEDS ORDERED: Lidocaine -MPF 2% 2 ML VIAL ONE (08:33)
[2018-11-08] MEDS ORDERED: Ondansetron 4 MG/2 ML VIAL ONE (08:33)
[2018-11-08] MEDS ORDERED: *HR* Rocuronium Bromide 50 MG/5 ML VIAL ONE (08:33)
[2018-11-08] MEDS ORDERED: Bupivacaine/EPI 1:200k 0.25%PF 30 ML VIAL ONE (08:35)
[2018-11-08] MEDS ORDERED: Acetaminophen IV 1,000 MG/100 ML INFUS..BTL ONE (08:40)
[2018-11-08] MEDS ORDERED: Famotidine 20 MG/2 ML VIAL ONE (08:40)
[2018-11-08] MEDS ORDERED: SUGAMMADEX SODIUM 500 MG/5 ML VIAL IV ONE (08:46)
--- NOTE | 2018-11-08 08:51 | Anesthesia Evaluation PreOp ---
Date of Encounter: 11/08/18 Time of Encounter: 09:00 - Past History Planned Operation: Lap Cholecystectomy Cardiac History: Denies any Significant Hx Pulmonary History: Denies Any Significant HX CLASS C DRIVER History: Other (Muscular Dystrophy) Other Medical History: Other (MRDD) Anesthesia History: No Prior Anesthetic Complications : No Test: Negative Alcohol Use: none Drug use: none Medications and Allergies No Known Home Drugs 11/04/18 [History] Allergy/AdvReac Type Severity Reaction Status Date / Time No Known Allergies Allergy Verified 05/23/16 10:33 - Meds/Allergy Pre-op Review Medications Reviewed: Yes Allergies Reviewed: Yes Beta Blockers on Current Med List: No Anesthesia Results - Labs 11/08/18 04:00 11/08/18 04:00 Anesthesia Exam O2 Sat Weight 86.8 kg O2 Sat by Pulse Oximetry 92 O2 Sat by Pulse Oximetry 95 O2 Sat by Pulse Oximetry 95 O2 Sat by Pulse Oximetry 93 O2 Sat by Pulse Oximetry 94 O2 Sat by Pulse Oximetry 95 Vital Signs Temp Pulse Resp BP Pulse Ox 97.9 F 91 17 146/98 98 11/04/18 10:13 11/04/18 10:13 11/04/18 10:13 11/04/18 10:13 11/04/18 10:13 Height: 3'3 Weight: 191 lbs NPO (# of Hours): MN Pain Scale: 0 - HEENT Pupil (Motor): Pupils equal, EOMI Mallampati: III Teeth: Normal Oral Opening: Less than or equal to 3 - CLASS C DRIVER LOC: Oriented CLASS C DRIVER Motor: Normal RUE, Normal LUE, Normal Face, Deficit RLE (underdeveloped), Deficit LLE CLASS C DRIVER Sensory: Normal: RUE, LUE, Face, Deficit: RLE, LLE - Cardiac Rhythm: Regular Murmur: None JVD: No Carotid Bruit: No - Pulmonary Breath Sounds: bilateral Clear Respiratory Effort: Symmetrical Anesthesia Assess/Plan ASA Score: 3 (Obese Muscular Dystrophy) Level of consciousness: Cooperative, Oriented Anesthetic Plan: General Autologous Blood: No Monitoring Plan: Standard Monitors Recovery Plan: PACU (Discussed GA, agrees to proceed)
[2018-11-08] MEDS ORDERED: Dexmedetomidine HCl 400 MCG/100 ML MLS IVC ONE (08:52)
[2018-11-08] MEDS ORDERED: *HR* PHENYLEPHRINE 1,000 MCG/10 ML SYRINGE IVP ONE ×2 (09:37→10:59)
[2018-11-08] MEDS ORDERED: Propofol 500 MG/50 ML INFUS..BTL ONE (09:48)
[2018-11-08] MEDS ORDERED: Ringers Solution, Lactated 500 ML IVC ONE (11:19)
--- NOTE | 2018-11-08 11:25 | Operative Note ---
Date of procedure: 11/08/18 Pre-op diagnosis: acute cholecystitis, pancreatitis, presumed gallstone pancreatitis Post-op diagnosis: other (Cholecystitis, cholelithiasis, choledocholithiasis, gallstone pancreatitis) Procedure: Laparoscopic cholecystectomy with intraoperative cholangiogram Complications: None apparent Anesthesia: GETA Local Anesthetics: 0.25% Sensorcaine HCL with Epinephrine 1:200,000 SubQ (cc) (25 mL) Surgeon: Maurice Reid Was there an assistant manager pt present: No Inverform Machine Operator Other: FELIPE Chavez Estimated blood loss (cc): 25 IV fluids (cc): 1,200 Specimen: gallbladder Condition: stable Disposition: PACU Procedure in Detail: The patient was brought to the operating room where she was placed supine on the procedure table. The patient was identified to appropriate person and procedure. The accuracy of this information was confirmed by the patient and procedure team. The patient was intubated and anesthetized under the supervision of Dr. Timi Cavazos. The abdomen was prepped and draped in usual sterile fashion. When the team indicated readiness, surgery was initiated. Several milliliters of 0.25% bupivacaine with 1-200,000 units epinephrine was infiltrated into the infraumbilical skin. A small transverse incision was made. Dissection was extended to the fascia. The fascia was grasped and elevated. Additional bupivacaine with epinephrine was infiltrated into the fascia before it was incised. An 11 mm Xcel port was established. The rigid laparoscope was placed within the obturator to visualize passage of the layers of the anterior a bdominal wall. When the abdominal cavity was accessed, the obturator was replaced by the rigid laparoscope and the abdomen was insufflated with gaseous carbon dioxide. There was no obvious visible injury from establishing the port. Under direct visualization the remaining ports were placed along the right costal margin. Each site was infiltrated with the bupivacaine with epinephrine solution. The colon extended to the caudal surface of the liver obscuring the gallbladder. It was necessary to place a 12 mm port essentially mid epigastrium to permit intraperitoneal placement of a fan retractor. This retracted the bowel caudally allowing visualization of the gallbladder and thu hepatis. The hepatoduodenal ligament was dissected. The cystic duct was identified and skeletonized. A Taut cholangiogram catheter was introduced via a separate percutaneous insertion site. The cystic duct was incised, the cholangiogram catheter inserted. Using C-arm fluoroscopy a cholangiogram was completed. This demonstrated a normal-appearing hepatobiliary tree. There was minimal flow of contrast into the duodenum. A meniscus sign was evident in the distal common duct consistent with choledocholithiasis. The proximal hepatobiliary tree appeared normal with no additional filling defects identified. [facility] provided an intraoperative reading with the same findings/observations. The cholangiogram catheter was removed. The cystic duct was clipped and divided. The cystic artery was identified clipped and divided. The gallbladder was dissected from the liver bed using Ethicon harmonic tamara. When the gallbladder was from the surrounding structures it was placed in an endoscopic pouch. The gallbladder was extracted from the abdomen via the infraumbilical port. The gallbladder was retrieved and sent to pathology. Multiple stones were evident within the gallbladder. The liver bed was inspected for adequate hemostasis. Inflammatory fluid was evident surrounding the liver most likely due to the acute pancreatitis. This fluid was aspirated. The laparoscopic instrumentation was removed, the pneumoperitoneum was evacuated. The fascia of the infraumbilical opening was closed with interrupted [id number] 0 Vicryl using S retractors. The port sites were closed with subcuticular 4-0 Vicryl. The incisions were sealed with Dermabond dermal adhesi ve. The patient was taken to PACU in stable condition. Needle, sponge, and instrument counts were correct at the close of the case.
--- NOTE | 2018-11-08 11:42 | Anesthesia Evaluation Post Op ---
Date of Encounter: 11/08/18 Time of Encounter: 11:40 - Vital Signs Vital Signs: Vital Signs/O2 Sat/Glucose, Most Current Temp Pulse Resp BP Pulse Ox 11/08/18 11:28 87 24 109/67 96 11/08/18 11:18 75 21 112/77 99 11/08/18 11:08 98.6 F 73 24 94/56 98 - Lungs Lungs: Clear Ascult./Percussion - Airway Airway: Non-obstructed - Cardiovascular Regular Rate - Mental Status Mental Status: Alert & Oriented, Answers Appropriately - Pain Pain Scale: 1 - Nausea Vomiting Nausea Vomiting: Not Present - Hydration Hydration: Ice chips - Discharge PostOp Status: Transfer Patient to floor
[2018-11-08] MEDS ORDERED: Dextrose Gel 15 GM/37.5 ML TUBE PO PRN ×3 (12:04→17:15)
[2018-11-08] MEDS ORDERED: *HR* Dextrose 50 % in Water (Syg) 50 ML SYRINGE IVP PRN ×2 (12:04→17:15)
[2018-11-08] MEDS ORDERED: OXYCODONE Oral CONC 10 MG/0.5 ML ORAL.SYG SL PRN (12:04)
[2018-11-08] MEDS: 0.9 % Sodium Chloride 1,000 ML IVC SCH ×2 (13:02→13:03)
[2018-11-08] MEDS: Potassium Chloride Elixir 20 MEQ/15 ML UDC PO SCH (13:02)
[2018-11-08] MEDS: *HR* OxyCODONE Immed Rel 5 MG TABLET PO PRN (13:03)
[2018-11-08] MEDS: Pantoprazole 40 MG VIAL IVP SCH (13:03)
[2018-11-08] MEDS: Fluticasone Propionate Nasal 50 MCG/SPRAY BOTTLE NS SCH (13:04)
[2018-11-08] MEDS: Potassium Chloride 20 MEQ, Lidocaine 1% 2 ML in D5% in Water 250 ML IVPB SCH ×3 (13:04→16:00)
--- NOTE | 2018-11-08 13:38 | Internal Med Progress Note ---
Hospitalist Progress Note - Encounter Date of Encounter: 11/08/18 Time of Encounter: 12:25 - Subjective Interval History: Pt seen and examined with brother present at bedside. Pt is post-op laproscopic cholecystectomy and cholangiogram. Pt tolerated the procedure well. Currently resting comfortably in bed. Pain controlled with current pain medications. Denies any nausea or vomiting. Cholangiogram done during surgery reported choledocholithiasis Will obtain GI f/u in for ERCP Ten point ROS negative except as listed above No overnight events reported - Exam Vitals: Temp Pulse Resp BP Pulse Ox 98.6 F 95 20 152/94 96 11/08/18 12:59 11/08/18 12:59 11/08/18 12:59 11/08/18 12:59 11/08/18 12:59 Exam: General: No acute distress, alert and oriented to self and family, hx of MRDD, mental status at baseline HEENT: EOMI, NC/AT, no scleral icterus Respiratory: Clear to auscultate bilaterally, no wheezing, no rales Cardiovascular: Regular, Rate, Rhythm, No murmurs GI: Soft, Non tender, non distended, normal bowel sounds, surgical incision dressing intact Ext: contracted LE Neuro: Alert and oriented - Assessment and Plan (1) Acute pancreatitis Current Visit: Yes Status: Acute Assessment and Plan: CT abd/pelvis: Peripancreatic fat stranding concerning for acute pancreatitis. Clinical and laboratory correlation suggested. No evidence for pancreatic necrosis, focal fluid collection such as pseudocyst or abscess formation, or splenic vein thrombosis. Mild ascites likely reactive relating to the acute pancreatitis. Intrahepatic and extrahepatic biliary ductal dilatation, new from prior exam 09/03/2018. No definite intraductal abnormality noted. This may be secondary to the acute pancreatitis. Clinical and laboratory correlation suggested and consideration could be given to further evaluation with MRCP or ERCP. Cholelithiasis. 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 Small hiatal hernia. GI evaluation appreciated continue IV fluids, pain management, anti-emetic support as needed clinically improving ID evaluation appreciated (2) Sepsis Current Visit: Yes Status: Acute Assessment and Plan: likely secondary to acute pancreatitis continue management as listed above (3) Cholecystitis with cholelithiasis Current Visit: Yes Status: Acute Assessment and Plan: cholecytitis ruled out choledocholithiasis reported on cholangiogram s/p Laproscopic Cholecystectomy (date of surgery: 11/08/18) surgery evaluation appreciated continue IV abx pain control will advance diet as tolerated (4) Hyperglycemia Current Visit: Yes Status: Acute Assessment and Plan: BG better controlled No reported history of DM HbA1C noted noted to be in prediabetic range continue sliding scale insulin algorithm and monitor FS and BG (5) Metabolic acidosis Current Visit: Yes Status: Acute Assessment and Plan: resolved discontinue bicarb drip (6) DVT prophylaxis Current Visit: Yes Status: Acute Assessment and Plan: Heparin SQ (7) Electrolyte abnormality Current Visit: Yes Status: Acute Assessment and Plan: Hypokalemia and Hypophosphatemia K and phos supplemented will continue to closely monitor electrolytes and replace as needed DVT Prophylaxis: Heparin SQ - Time Spent with Patient Total time spent is greater than 50% in coordination of care (as documented) at patient's floor/unit and/or counseling patient: Plan of Care Discussed with: patient (patient/RN/family/data virtualization consultant) Internal Medicine: Result - Labs CBC & Chem 7: 11/08/18 04:00 11/08/18 04:00 Labs: Short CBC 11/08/18 Range/Units 04:00 WBC 23.9 H (4.3-11.1) K/mcL Hgb 10.0 L (11.5-15.4) g/dL Hct 29.6 L (35.3-44.9) % Plt Count 289 (140-400) K/mcL Neutrophils # 20.2 H (1.6-8.9) K/mcL BMP 11/08/18 04:00 Sodium 135 L Potassium 3.0 L Chloride 105 Carbon Dioxide 21 L BUN 4 L Creatinine 0.29 L Glucose 128 H Calcium 7.4 L - Impressions Impressions Cholangiogram,Operative 11/08/18 00:00 IMPRESSION: Small filling defect at the level of the ampulla may represent a small stone. Findings were communicated to the OR. D/ / 11/08/2018 11:42:12 Contreras Saul MD / quynh Interpreting Provider: Contreras Saul MD Consult Discharge Plan - Plan Referrals: Annalee Carbajal MD [Primary Care Provider] - (1) Acute pancreatitis Qualifiers: Pancreatitis type: biliary Acute pancreatitis complication: no infection or necrosis Qualified Code(s): K85.10 - Biliary acute pancreatitis without ne crosis or infection (2) Sepsis Qualifiers: Sepsis type: sepsis due to unspecified organism Qualified Code(s): A41.9 - Sepsis, unspecified organism (3) Cholecystitis with cholelithiasis Qualifiers: Cholelithiasis location: bile duct Cholecystitis acuity: acute and chronic Biliary obstruction: without biliary obstruction Qualified Code(s): K80.46 - Calculus of bile duct with acute and chronic cholecystitis without obstruction
[2018-11-08] MEDS ORDERED: D5% in Water 1,000 ML IVC PRN ×2 (17:12→17:15)
[2018-11-09 04:34] LABS: Basophils % 0.1 %; Hematocrit 30.9 % (35.3-44.9); Hemoglobin 10.2 g/dL (11.5-15.4); Immature Granulocytes % 0.9 % (0-4); Lymphocytes % 9.2 %; Mean Corpuscular Hemoglobin 28.5 pg (28.0-33.3); Mean Corpuscular Volume 86.3 fL (83.0-100.0); Mean Platelet Volume 10.8 fL (9.4-12.4); Monocytes # 1.2 K/mcL (0.0-1.3); Monocytes % 5.5 %; Neutrophils # 18.2 K/mcL (1.6-8.9); Platelet Count 354 K/mcL (140-400); Red Blood Count 3.58 M/mcL (3.82-4.97); Red Cell Distribution Width 13.5 % (11.5-14.5); Segmented Neutrophils % 84.3 %
[2018-11-09] MEDS: Piperacillin/Tazobactam 3.375 GM in 0.9 % Sodium Chloride Mini Bag 100 ML IVPB SCH ×3 (04:37→21:39)
[2018-11-09] MEDS: 0.9 % Sodium Chloride 1,000 ML IVC SCH ×2 (04:41→08:00)
[2018-11-09 04:52] LABS: Magnesium 1.9 mg/dL (1.6-2.6)
[2018-11-09 04:53] LABS: Alanine Aminotransferase 17 Units/L (7-52); Albumin 2.7 g/dL (3.5-5.7); Albumin/Globulin Ratio 0.8 (1.1-2.2); Alkaline Phosphatase 57 Units/L (34-104); Aspartate Amino Transferase 17 Units/L (13-39); BUN/Creatinine Ratio 16 (6-26); Bilirubin,Total 0.4 mg/dL (0.3-1.0); Blood Urea Nitrogen 6 mg/dL (6-20); Calcium 7.9 mg/dL (8.6-10.3); Carbon Dioxide 23 mEq/L (23-29); Chloride 105 mEq/L (98-107); Glucose 149 mg/dL (70-105); Osmolality,Calculated 284 (280-300); Potassium 3.5 mEq/L (3.5-5.1); Sodium 137 mEq/L (136-145); Total Protein 5.9 g/dL (6.4-8.9); eGFR For Non-African Americans > 60 (> 60)
[2018-11-09 04:54] LABS: Amylase 31 Units/L (29-103); Globulin 3.2 g/dL (2.4-3.5); Lipase 22 Units/L (11-82)
[2018-11-09] MEDS: Insulin LISPRO 300 UNITS/3 ML VIAL SQ SCH ×4 (09:09→21:33)
[2018-11-09] MEDS: Potassium Chloride Elixir 20 MEQ/15 ML UDC PO SCH (09:10)
[2018-11-09] MEDS: Fluticasone Propionate Nasal 50 MCG/SPRAY BOTTLE NS SCH (09:11)
[2018-11-09] MEDS: Pantoprazole 40 MG VIAL IVP SCH (09:12)
[2018-11-09] MEDS: Ondansetron 4 MG/2 ML VIAL IVP PRN ×2 (10:04→17:31)
[2018-11-09 10:08] LABS: ANA IgG by ELISA NONE DETECTED (None Detected); Immunoglobulin G Subclass 4 74 mg/dL (1-123)
--- NOTE | 2018-11-09 11:43 | General Surgery Progress Note ---
Date of Encounter: 11/09/18 Time of Encounter: 11:38 Subjective Narrative: General Surgery - POD #1 Patient appears well, admits to minimal right-sided abdominal pain. She is tolerating diet without nausea or vomiting. Patient is afebrile, 98.3, pulse 105 (ranging 103-108) respiratory rate 18 and unlabored; blood pressure 145/84. Lungs: Clear bilaterally, no obvious abdominal pain on deep inspiration Abdomen: Soft, no detected tenderness to palpation. No discernible intra- abdominal masses. No rebound. Active bowel sounds. Port sites intact WBC 21.6 (improved); neutrophils also improved 18.2 hemoglobin 10.2/hematocrit 30.9 (stable) Electrolytes, BUN, creatinine within normal limits Phosphorus and magnesium within normal limits; bilirubin 0.4, AST 17, ALT 17, Alkaline phosphatase 57; amylase 31, lipase 22. Impression: Gallstone pancreatitis, postoperative day #1 status post laparoscopic cholecystectomy with intraoperative cholangiogram. Acceptable postoperative state Intraoperative cholangiogram demonstrated a stone in the distal common bile duct. Recommendations: Consult gastroenterology/Dr. Garcia for ERCP/choledocholithotomy prior to discharge home Objective Vital Signs - Last 8 Hours Temp Pulse Resp BP Pulse Ox 11/09/18 11:00 98.3 F 105 18 145/84 98 11/09/18 07:40 97.7 F 104 18 157/99 96 11/09/18 05:02 98.6 F 103 15 137/80 94 Intake and Output 11/08/18 11/09/18 11/09/18 23:59 07:59 15:59 Intake Total 840 / 840 1100 / 1100 100 / 100 Balance 840 / 840 1100 / 1100 100 / 100 Intake: IV Fluids 360 / 360 1100 / 1100 100 / 100 0.9 % Sodium Chloride 1,000 ML 1000 / 1000 @ 80 mls/hr IVC .[id number] [facility] Rx #:[id number] Zosyn 3.375 GM In 0.9 % Sodium 100 / 100 100 / 100 100 / 100 Chloride (Mini-Bag +) 100 ML @ 25 mls/hr IVPB Q8H [facility] Rx#: [id number] Sodium Phosphate 30 MMOL In 0.9 260 / 260 % Sodium Chloride 250 ML @ 42 mls/hr IVPB ONCE ONE Rx#: [id number] Oral 480 / 480 0 / 0 Other: Meal Dinner Percent of Meal Consumed 75% # Urine Diapers 1 2 Weight 86.8 kg Blood Glucose* 169 132 155 Patient Weight 11/09/18 23:59 Weight 86.8 kg - Labs 11/09/18 04:10 11/09/18 04:10 Diabetes panel 11/09/18 Range/Units 04:10 Sodium 137 (136-145) mEq/L Potassium 3.5 (3.5-5.1) mEq/L Chloride 105 (98-107) mEq/L Carbon Dioxide 23 (23-29) mEq/L BUN 6 (6-20) mg/dL Creatinine 0.37 L (0.60-1.20) mg/dL Glucose 149 H (70-105) mg/dL Calcium 7.9 L (8.6-10.3) mg/dL AST 17 (13-39) Units/L ALT 17 (7-52) Units/L Alkaline Phosphatase 57 (34-104) Units/L Albumin 2.7 L (3.5-5.7) g/dL Calcium panel 11/09/18 11/09/18 Range/Units 04:10 04:10 Calcium 7.9 L (8.6-10.3) mg/dL Phosphorus 3.0 (2.7-4.5) mg/dL Albumin 2.7 L (3.5-5.7) g/dL Pituitary panel 11/09/18 Range/Units 04:10 Sodium 137 (136-145) mEq/L Potassium 3.5 (3.5-5.1) mEq/L Chloride 105 (98-107) mEq/L Carbon Dioxide 23 (23-29) mEq/L BUN 6 (6-20) mg/dL Creatinine 0.37 L (0.60-1.20) mg/dL Glucose 149 H (70-105) mg/dL Calcium 7.9 L (8.6-10.3) mg/dL Adrenal panel 11/09/18 Range/Units 04:10 Sodium 137 (136-145) mEq/L Potassium 3.5 (3.5-5.1) mEq/L Chloride 105 (98-107) mEq/L Carbon Dioxide 23 (23-29) mEq/L BUN 6 (6-20) mg/dL Creatinine 0.37 L (0.60-1.20) mg/dL Glucose 149 H (70-105) mg/dL Calcium 7.9 L (8.6-10.3) mg/dL Total Bilirubin 0.4 (0.3-1.0) mg/dL AST 17 (13-39) Units/L ALT 17 (7-52) Units/L Alkaline Phosphatase 57 (34-104) Units/L Albumin 2.7 L (3.5-5.7) g/dL Consult Discharge Plan - Plan Referrals: Annalee Carbajal MD [Primary Care Provider] -
--- NOTE | 2018-11-09 14:42 | Internal Med Progress Note ---
Hospitalist Progress Note - Encounter Date of Encounter: 11/09/18 Time of Encounter: 14:33 - Subjective Interval History: Pt seen and examined with brother present at bedside. Pt states pain is appropriately controlled but she was not able to get much sleep last night. No nausea or vomiting reported. I spoke with Dr. Garcia this morning in regards to evaluation for ERCP, Dr. Garcia to evaluate the patient Ten point ROS negative except as listed above No overnight events were reported. - Exam Vitals: Temp Pulse Resp BP Pulse Ox 98.3 F 105 18 145/84 98 11/09/18 11:00 11/09/18 11:00 11/09/18 11:00 11/09/18 11:00 11/09/18 11:00 Exam: General: No acute distress, alert and oriented to self and family, hx of MRDD, mental status at baseline HEENT: EOMI, NC/AT, no scleral icterus Respiratory: Clear to auscultate bilaterally, no wheezing, no rales Cardiovascular: Regular, Rate, Rhythm, No murmurs GI: Soft, Non tender, non distended, normal bowel sounds, surgical incision site clean Ext: contracted LE Neuro: Alert and oriented - Assessment and Plan (1) Acute pancreatitis Current Visit: Yes Status: Acute Assessment and Plan: CT abd/pelvis: Peripancreatic fat stranding concerning for acute pancreatitis. Clinical and laboratory correlation suggested. No evidence for pancreatic necrosis, focal fluid collection such as pseudocyst or abscess formation, or splenic vein thrombosis. Mild ascites likely reactive relating to the acute pancreatitis. Intrahepatic and extrahepatic biliary ductal dilatation, new from prior exam 09/03/2018. No definite intraductal abnormality noted. This may be secondary to the acute pancreatitis. Clinical and laboratory correlation suggested and consideration could be given to further evaluation with MRCP or ERCP. Cholelithiasis. 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 Small hiatal hernia. GI evaluation appreciated continue IV fluids, pain management, anti-emetic support as needed clinically improving ID evaluation appreciated (2) Sepsis Current Visit: Yes Status: Acute Assessment and Plan: likely secondary to acute pancreatitis continue management as listed above (3) Cholecystitis with cholelithiasis Current Visit: Yes Status: Acute Assessment and Plan: cholecytitis ruled out choledocholithiasis reported on cholangiogram s/p Laproscopic Cholecystectomy (date of surgery: 11/08/18) surgery evaluation appreciated continue IV abx pain control will advance diet as tolerated awaiting GI follow up (4) Hyperglycemia Current Visit: Yes Status: Acute Assessment and Plan: BG better controlled No reported history of DM HbA1C noted noted to be in prediabetic range continue sliding scale insulin algorithm and monitor FS and BG (5) Metabolic acidosis Current Visit: Yes Status: Acute Assessment and Plan: resolved discontinue bicarb drip (6) DVT prophylaxis Current Visit: Yes Status: Acute Assessment and Plan: Heparin SQ (7) Electrolyte abnormality Current Visit: Yes Status: Resolved Assessment and Plan: resolved will continue to closely monitor electrolytes and replace as needed DVT Prophylaxis: Heparin SQ - Time Spent with Patient Total time spent is greater than 50% in coordination of care (as documented) at patient's floor/unit and/or counseling patient: Plan of Care Discussed with: patient (patient/family/RN/case managemen t/compliance consultant) Internal Medicine: Result - Labs CBC & Chem 7: 11/09/18 04:10 11/09/18 04:10 Labs: Short CBC 11/09/18 Range/Units 04:10 WBC 21.6 H (4.3-11.1) K/mcL Hgb 10.2 L (11.5-15.4) g/dL Hct 30.9 L (35.3-44.9) % Plt Count 354 (140-400) K/mcL Neutrophils # 18.2 H (1.6-8.9) K/mcL BMP 11/09/18 04:10 Sodium 137 Potassium 3.5 Chloride 105 Carbon Dioxide 23 BUN 6 Creatinine 0.37 L Glucose 149 H Calcium 7.9 L Liver Function 11/09/18 Range/Units 04:10 Total Bilirubin 0.4 (0.3-1.0) mg/dL AST 17 (13-39) Units/L ALT 17 (7-52) Units/L Alkaline Phosphatase 57 (34-104) Units/L Albumin 2.7 L (3.5-5.7) g/dL Consult Discharge Plan - Plan Referrals: Annalee Carbajal MD [Primary Care Provider] - (1) Acute pancreatitis Qualifiers: Pancreatitis type: biliary Acute pancreatitis complication: no infection or necrosis Qualified Code(s): K85.10 - Biliary acute pancreatitis without necrosis or infection (2) Sepsis Qualifiers: Sepsis type: sepsis due to unspecified organism Qualified Code(s): A41.9 - Sepsis, unspecified organism (3) Cholecystitis with cholelithiasis Qualifiers: Cholelithiasis location: bile duct Cholecystitis acuity: acute and chronic Biliary obstruction: without biliary obstruction Qualified Code(s): K80.46 - Calculus of bile duct with acute and chronic cholecystitis without obstruction
--- NOTE | 2018-11-09 16:58 | Infectious Disease Progress No ---
Date of Encounter: 11/09/18 Time of Encounter: 16:57 - Assessment and Plan (1) Sepsis Current Visit: Yes Status: Acute The patient had two SIRS criteria. Likely secondary to acute pancreatitis. Clinically improved, but continues to have tachycardia and fever. Leukocytosis is improved. Blood cultures drawn 11/05/18 are pending x 2 sets. Respiratory infectious panel was negative. Recommendations: I do not believe the patient needs antibiotics at this point. Labs continue to improve fever has resolved Recommend stopping all antibiotics. We will sign off. Please feel free to contact us if anything changes clinically. Qualifiers: Sepsis type: sepsis due to unspecified organism Qualified Code(s): A41.9 - Sepsis, unspecified organism (2) Acute pancreatitis Current Visit: Yes Status: Acute CT of the abdomen and pelvis 11/04/18 showed peripancreatic fat straining concerning for acute pancreatitis with mild ascites likely reactive relating to the acute pancreatitis. It also showed intrahepatic and extrahepatic biliary ductal dilatation, new from prior exam in August. Amylase elevated at 1477. Lipase greater than 1800. MRCP showed a gallbladder filled with stones, but no secondary findings of acute cholecystitis. No biliary ductal dilatation or choledocholithiasis. There was. Pancreatic edema, consistent with acute pancreatitis. Clinically improved. GI consulted and following. Qualifiers: Pancreatitis type: biliary Acute pancreatitis complication: no infection or necrosis Qualified Code(s): K85.10 - Biliary acute pancreatitis without necrosis or infection (3) Cholelithiasis Current Visit: Yes Status: Acute Noted on CT of the abdomen and pelvis. No evidence of cholecystitis noted on CT or MRCP. GI consulted. Gen. surgery consultation pending. 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 Appears comfortable. No acute distress. No chest pain or shortness of breath no abdominal pain. Patient apparently had upper glabrata scopic cholecystectomy done at Dr. ruffin over the weekend. Antibiotics were started as well over the weekend. Infect Dis PN-Objective Data - Labs CBC & Chem 7: 11/09/18 04:10 11/09/18 04:10 Labs: Laboratory Results - last 24 hr 11/06/18 11/08/18 11/08/18 06:08 16:29 20:19 WBC RBC Hgb Hct MCV MCH MCHC RDW Plt Count MPV Immature Gran % Seg Neutrophils % Lymphocytes % Monocytes % Eosinophils % Basophils % Neutrophils # Lymphocytes # Monocytes # Eosinophils # Basophils # Sodium Potassium Chloride Carbon Dioxide BUN Creatinine Est GFR ( Amer) Est GFR (Non-Af Amer) BUN/Creatinine Ratio Glucose POC Glucose 207 H 169 H Calculated Osmolality Calcium Phosphorus Magnesium Total Bilirubin AST ALT Alkaline Phosphatase Serum Total Protein Albumin Globulin Albumin/Globulin Ratio Amylase Lipase IgG4 74 VANESSA Screen NONE DETECTED 11/09/18 11/09/18 11/09/18 04:10 04:10 04:10 WBC 21.6 H RBC 3.58 L Hgb 10.2 L Hct 30.9 L MCV 86.3 MCH 28.5 MCHC 33.0 RDW 13.5 Plt Count 354 MPV 10.8 Immature Gran % 0.9 Seg Neutrophils % 84.3 Lymphocytes % 9.2 Monocytes % 5.5 Eosinophils % 0.0 Basophils % 0.1 Neutrophils # 18.2 H Lymphocytes # 2.0 Monocytes # 1.2 Eosinophils # 0.0 Basophils # 0.0 Sodium 137 Potassium 3.5 Chloride 105 Carbon Dioxide 23 BUN 6 Creatinine 0.37 L Est GFR ( Amer) > 60 Est GFR (Non-Af Amer) > 60 BUN/Creatinine Ratio 16 Glucose 149 H POC Glucose Calculated Osmolality 284 Calcium 7.9 L Phosphorus 3.0 Magnesium 1.9 Total Bilirubin 0.4 AST 17 ALT 17 Alkaline Phosphatase 57 Serum Total Protein 5.9 L Albumin 2.7 L Globulin 3.2 Albumin/Globulin Ratio 0.8 L Amylase 31 Lipase 22 IgG4 VANESSA Screen 11/09/18 11/09/18 07:35 11:03 WBC RBC Hgb Hct MCV MCH MCHC RDW Plt Count MPV Immature Gran % Seg Neutrophils % Lymphocytes % Monocytes % Eosinophils % Basophils % Neutrophils # Lymphocytes # Monocytes # Eosinophils # Basophils # Sodium Potassium Chloride Carbon Dioxide BUN Creatinine Est GFR ( Amer) Est GFR (Non-Af Amer) BUN/Creatinine Ratio Glucose POC Glucose 132 H 155 H Calculated Osmolality Calcium Phosphorus Magnesium Total Bilirubin AST ALT Alkaline Phosphatase Serum Total Protein Albumin Globulin Albumin/Globulin Ratio Amylase Lipase IgG4 VNAESSA Screen Cultures: Cultures 11/05/18 09:30 Blood Culture - Preliminary Peripheral Venipuncture Culture is incubating and being continuously monitored for growth. Final report to follow. 11/05/18 09:25 Blood Culture - Preliminary Peripheral Venipuncture Culture is incubating and being continuously monitored for growth. Final report to follow. Serology 11/05/18 11/04/18 11/04/18 Range/Units 10:17 11:19 11:19 Urine Color Dark Yellow (Yellow) Urine Clarity Clear (Clear) Urine pH 5.0 (5.0-8.0) pH Units Ur Specific [place] 1.029 H (1.010-1.025) Urine Protein 30 H (Neg-Trace) mg/dL Urine Glucose (UA) Normal (Normal) mg/dL Urine Ketones Negative (Negative) mg/dL Urine Blood Negative (Negative) Urine Nitrite Negative (Negative) Urine Bilirubin Small H (Negative) Urine Urobilinogen Normal (Normal) mg/dL Ur Leukocyte Esterase Negative (Negative) Urine Microscopic RBC 0-3 (0-3) per hpf Urine Microscopic WBC 0-3 (0-3) per hpf Ur Squamous Epith Cells Many H (None-Few) per lpf Urine Bacteria None Seen (None-Few) per hpf Hyaline Casts Few (None-Few) per lpf Ur Culture Indicated? NO (NO) Urine Test Negative (Negative) Chlamy pneumoniae PCR Not Detected (Not Detect) Adenovirus (PCR) Not Detected (Not Detect) B. pertussis DNA (PCR) Not Detected (Not Detect) B.parapertussis DNA PCR Not Detected (Not Detect) Coronavirus OC43 (PCR) Not Detected (Not Detect) Coronavirus HKU1 (PCR) Not Detected (Not Detect) Coronavirus 229E (PCR) Not Detected (Not Detect) Coronavirus NL63 (PCR) Not Detected (Not Detect) Human Metapneumovir PCR Not Detected (Not Detect) Influenza A (H1) PCR Not Detected (Not Detect) Influ A (H1N1/09) PCR Not Detected (Not Detect) Influenza A (H3) PCR Not Detected (Not Detect) Influenza A Untype (PCR) Not Detected (Not Detect) Influenza Type B (PCR) Not Detected (Not Detect) M.pneumoniae DNA (PCR) Not Detected (Not Detect) Parainfluenza 1 (PCR) Not Detected (Not Detect) Parainfluenza 2 (PCR) Not Detected (Not Detect) Parainfluenza 3 (PCR) Not Detected (Not Detect) Parainfluenza 4 (PCR) Not Detected (Not Detect) RSV (PCR) Not Detected (Not Detect) Entero/Rhino (PCR) Not Detected (Not Detect) Exam - Constitutional Vitals: Temp Pulse Resp BP Pulse Ox 99.1 F 105 18 143/99 93 11/09/18 15:27 11/09/18 15:27 11/09/18 15:27 11/09/18 15:27 11/09/18 15:27 General appearance: no acute distress, no febrile - Respiratory Respiratory exam: Present: CTAB. Absent: wheezes - Cardiovascular Cardiovascular exam: Present: RRR, +S1, +S2 Consult Discharge Plan - Plan Referrals: Annalee Carbajal MD [Primary Care Provider] -
[2018-11-09] MEDS: *HR* OxyCODONE Immed Rel 5 MG TABLET PO PRN (17:32)
--- NOTE | 2018-11-09 21:32 | Anesthesia Evaluation PreOp ---
Date of Encounter: 11/09/18 Time of Encounter: 21:30 - Past History Planned Operation: ERCP Cardiac History: Denies any Significant Hx Pulmonary History: Denies Any Significant HX CLEANER GREASER History: Other (muscular dystropy, MRDD) Other Medical History: Denies Any Significant HX Anesthesia History: No Prior Anesthetic Complications, Past Anesthesia (Lap cholecystectomy) Alcohol Use: none Drug use: none Medications and Allergies No Known Home Drugs 11/04/18 [History] Allergy/AdvReac Type Severity Reaction Status Date / Time No Known Allergies Allergy Verified 05/23/16 10:33 - Meds/Allergy Pre-op Review Medications Reviewed: Yes Allergies Reviewed: Yes Beta Blockers on Current Med List: No Anesthesia Results - Labs 11/09/18 04:10 11/09/18 04:10 Anesthesia Exam Last Vital Signs Temp 99.3 F 11/09/18 18:35 Pulse 103 11/09/18 18:35 Resp 15 11/09/18 18:35 BP 150/88 11/09/18 18:35 Pulse Ox 96 11/09/18 18:35 Weight: 87 kg - HEENT Pupil (Motor): Pupils equal, EOMI Mallampati: III Teeth: Normal Oral Opening: Greater than 3 - CLEANER GREASER LOC: Oriented - Cardiac Rhythm: Regular Murmur: None - Pulmonary Breath Sounds: bilateral Clear Respiratory Effort: Symmetrical Anesthesia Assess/Plan ASA Score: 3 Level of consciousness: Cooperative Anesthetic Plan: General Monitoring Plan: Standard Monitors Recovery Plan: PACU
[2018-11-10] MEDS: *HR* OxyCODONE Immed Rel 5 MG TABLET PO PRN (00:13)
[2018-11-10] MEDS: Piperacillin/Tazobactam 3.375 GM in 0.9 % Sodium Chloride Mini Bag 100 ML IVPB SCH ×3 (05:22→21:25)
[2018-11-10] MEDS: Insulin LISPRO 300 UNITS/3 ML VIAL SQ SCH ×4 (07:57→21:23)
[2018-11-10] MEDS: Fluticasone Propionate Nasal 50 MCG/SPRAY BOTTLE NS SCH (07:59)
[2018-11-10] MEDS: Pantoprazole 40 MG VIAL IVP SCH (08:00)
[2018-11-10] MEDS: Potassium Chloride Elixir 20 MEQ/15 ML UDC PO SCH (08:01)
[2018-11-10 08:41] LABS: BUN/Creatinine Ratio 13 (6-26); Blood Urea Nitrogen 4 mg/dL (6-20); Calcium 8.2 mg/dL (8.6-10.3); Carbon Dioxide 22 mEq/L (23-29); Chloride 103 mEq/L (98-107); Glucose 125 mg/dL (70-105); Magnesium 1.7 mg/dL (1.6-2.6); Osmolality,Calculated 272 (280-300); Phosphorous 3.3 mg/dL (2.7-4.5); Potassium 3.7 mEq/L (3.5-5.1); Sodium 132 mEq/L (136-145); eGFR For Non-African Americans > 60 (> 60)
[2018-11-10 09:19] LABS: Immature Granulocytes % 1.3 % (0-4); Nucleated Red Blood Cells 0.1 /100 WBC (0)
[2018-11-10 09:20] LABS: Basophils # 0.1 K/mcL (0.0-0.2); Basophils % 0.3 %; Eosinophils # 0.3 K/mcL (0.0-0.6); Eosinophils % 1.1 %; Hematocrit 34.7 % (35.3-44.9); Hemoglobin 11.7 g/dL (11.5-15.4); Lymphocytes # 2.8 K/mcL (0.6-4.6); Lymphocytes % 10.2 %; Mean Corpuscular HGB Conc 33.7 g/dL (31.6-35.5); Mean Corpuscular Hemoglobin 28.5 pg (28.0-33.3); Mean Corpuscular Volume 84.6 fL (83.0-100.0); Monocytes # 2.1 K/mcL (0.0-1.3); Monocytes % 7.4 %; Platelet Count 391 K/mcL (140-400); Segmented Neutrophils % 79.7 %
[2018-11-10 09:23] LABS: Neutrophils # 22.2 K/mcL (1.6-8.9)
--- NOTE | 2018-11-10 09:55 | Internal Med Progress Note ---
Hospitalist Progress Note - Encounter Date of Encounter: 11/10/18 Time of Encounter: 08:38 - Subjective Interval History: Pt seen and examined with brother present at bedside. Pt sitting in bed and denies any pain today Pt is scheduled for ERCP today (11/10/18) noted to have worsening leukocytosis but clinically asymptomatic, will continue to monitor no overnight events reported. Ten point ROS is negative except as listed above - Exam Vitals: Temp Pulse Resp BP Pulse Ox 99.1 F 101 18 118/77 97 11/10/18 07:22 11/10/18 07:22 11/10/18 07:22 11/10/18 07:22 11/10/18 07:22 Exam: General: No acute distress, alert and oriented to self and family, hx of MRDD, mental status at baseline HEENT: EOMI, NC/AT, no scleral icterus Respiratory: Clear to auscultate bilaterally, no wheezing, no rales Cardiovascular: Regular, Rate, Rhythm, No murmurs GI: Soft, Non tender, non distended, normal bowel sounds, surgical incision site clean Ext: contracted LE Neuro: Alert and oriented - Assessment and Plan (1) Acute pancreatitis Current Visit: Yes Status: Acute Assessment and Plan: GI evaluation appreciated continue IV fluids, pain management, anti-emetic support as needed clinically improving ID evaluation appreciated (2) Sepsis Current Visit: Yes Status: Acute Assessment and Plan: likely secondary to acute pancreatitis continue management as listed above (3) Cholecystitis with cholelithiasis Current Visit: Yes Status: Acute Assessment and Plan: cholecytitis ruled out choledocholithiasis reported on cholangiogram s/p Laproscopic Cholecystectomy (date of surgery: 11/08/18) surgery evaluation appreciated continue IV abx pain control will advance diet as tolerated GI on board, scheduled for ERCP today (11/10/18) (4) Hyperglycemia Current Visit: Yes Status: Acute Assessment and Plan: BG better controlled No reported history of DM HbA1C noted noted to be in prediabetic range continue sliding scale insulin algorithm and monitor FS and BG (5) Metabolic acidosis Current Visit: Yes Status: Resolved Assessment and Plan: resolved discontinue bicarb drip (6) DVT prophylaxis Current Visit: Yes Status: Acute Assessment and Plan: Heparin SQ (7) Electrolyte abnormality Current Visit: Yes Status: Resolved Assessment and Plan: resolved will continue to closely monitor electrolytes and replace as needed DVT Prophylaxis: Heparin SQ - Time Spent with Patient Total time spent is greater than 50% in coordination of care (as documented) at patient's floor/unit and/or counseling patient: Plan of Care Discussed with: patient (patient/family/RN/telecommunications consultant) Internal Medicine: Result - Labs CBC & Chem 7: 11/10/18 09:08 11/10/18 07:51 Labs: Short CBC 11/10/18 Range/Units 09:08 WBC 27.8 H (4.3-11.1) K/mcL Hgb 11.7 D (11.5-15.4) g/dL Hct 34.7 L (35.3-44.9) % Plt Count 391 (140-400) K/mcL Neutrophils # 22.2 H (1.6-8.9) K/mcL BMP 11/10/18 07:51 Sodium 132 L Potassium 3.7 Chloride 103 Carbon Dioxide 22 L BUN 4 L Creatinine 0.32 L Glucose 125 H Calcium 8.2 L Consult Discharge Plan - Plan Referrals: Annalee Carbajal MD [Primary Care Provider] - (1) Acute pancreatitis Qualifiers: Pancreatitis type: biliary Acute pancreatitis complication: no infection or necrosis Qualified Code(s): K85.10 - Biliary acute pancreatitis without necrosis or infection (2) Sepsis Qualifiers: Sepsis type: sepsis due to unspecified organism Qualified Code(s): A41.9 - Sepsis, unspecified organism (3) Cholecystitis with cholelithiasis Qualifiers: Cholelithiasis location: bile duct Cholecystitis acuity: acute and chronic Biliary obstruction: without biliary obstruction Qualified Code(s): K80.46 - Calculus of bile duct with acute and chronic cholecystitis without obstruction
[2018-11-10 10:45] LABS: Platelet Estimate Normal (Normal); Polychromasia 1+ (Not Present)
--- NOTE | 2018-11-10 11:29 | Gastroenterology Progress Note ---
<Demetrio Ennis - Last Filed: 11/10/18 11:27> Date of Encounter: 11/10/18 Time of Encounter: 10:05 - Assessment and plan (1) Cholecystitis with cholelithiasis Status: Acute Assessment and plan: Laparoscopic cholecystectomy completed 11/[address] Reid. Intraoperative cholangiogram revealed stone in the distal CBD. Plan for ERCP today. Keep patient NPO for now. Qualifiers: Cholelithiasis location: bile duct Cholecystitis acuity: acute and chronic Biliary obstruction: without biliary obstruction Qualified Code(s): K80.46 - Calculus of bile duct with acute and chronic cholecystitis without obstruction (2) Acute pancreatitis Status: Acute Assessment and plan: Secondary to gallstones. Patient s/p lap clint on 11/[address] Reid. Continue pain control and antiemetics as needed. Slowly advance diet as tolerated. Qualifiers: Pancreatitis type: biliary Acute pancreatitis complication: no infection or necrosis Qualified Code(s): K85.10 - Biliary acute pancreatitis without necrosis or infection - Time Spent With Patient Total time spent is greater than 50% in coordination of care (as documented) at patient's floor/unit and/or counseling patient: - Subjective Interval history: Patient is resting in bed without acute complaint at this time. She is s/p laparoscopic cholecystectomy by Dr. Reid. - Constitutional Vitals: Temp Pulse Resp BP Pulse Ox 99.1 F 101 18 118/77 97 11/10/18 07:22 11/10/18 07:22 11/10/18 07:22 11/10/18 07:22 11/10/18 07:22 General appearance: Present: cooperative, no acute distress, answers questions appropriately - Head Head exam: Present: atraumatic, normocephalic - Eye Eye exam: Present: normal appearance, sclera anicteric - ENT ENT exam: Present: mucous membranes moist - Neck Neck exam general surgery: Present: normal inspection, trachea midline - Respiratory Respiratory exam: Present: CTAB. Absent: rales, rhonchi, wheezes - Cardiovascular Cardiovascular exam: Present: RRR, +S1, +S2 - GI/Abdominal GI/Abdominal exam: Present: soft, no peritoneal signs. Absent: distended, firm, guarding, tenderness Additional comments: surgical incision sites clean. - Rectal Rectal exam: Present: deferred - Extremities Exam Extremities exam: Present: warm - Neurological Exam Neurological exam: Present: no focal deficits - Psychiatric Psychiatric exam: Present: normal affect, normal mood - Skin Skin exam: Present: dry, intact, normal color, warm Results - Labs CBC & Chem 7: 11/10/18 09:08 11/10/18 07:51 Labs: Last Result Calcium 8.2 mg/dL (8.6-10.3) L 11/10/18 07:51 Triglycerides 97 mg/dL (< 150) 11/06/18 06:08 Entire Visit Hgb 11.7 g/dL (11.5-15.4) D 11/10/18 09:08 Hct 34.7 % (35.3-44.9) L 11/10/18 09:08 Total Bilirubin 0.4 mg/dL (0.3-1.0) 11/09/18 04:10 AST 17 Units/L (13-39) 11/09/18 04:10 ALT 17 Units/L (7-52) 11/09/18 04:10 Amylase 31 Units/L (29-103) 11/09/18 04:10 Lipase 22 Units/L (11-82) 11/09/18 04:10 Consult Discharge Plan - Plan Instructions: Cholecystitis (DC), Laparoscopic Cholecystectomy (DC) Additional Instructions: 1. Please follow up with general surgery (Dr. Reid) on 11/23/2018. Please obtain the prescribed lab work prior to your appointment with Dr. Reid. 2. Please follow up with your primary care physician within 5 days after your discharge from the hospital 3. Please follow up with gastroenterology within 1-2 weeks after your discharge from the hospital 4. Please seek medical help immediately if you have difficulty breathing, abdominal pain, nausea, or vomiting. Referrals: Annalee Carbajal MD [Primary Care Provider] - Fransico Aden MD [Partnered Physician] - 11/20/18 11:00 am (Follow up after hospital discharge.) Prescriptions: RX: Acetaminophen [Tylenol] 650 mg PO Q6H PRN #20 tablet PRN Reason: pain or fever greater than 101 Ondansetron ODT [Zofran ODT] 4 mg SL Q6H #20 tab.rapdis <Barrera Hopkins - Last Filed: 11/18/18 05:45> Date of Encounter: 11/12/18 - Time Spent With Patient Total time spent is greater than 50% in coordination of care (as documented) at patient's floor/unit and/or counseling patient: - Constitutional Vitals: Temp Pulse Resp BP Pulse Ox 99.0 F 102 15 123/82 98 11/17/18 10:33 11/17/18 10:33 11/17/18 10:33 11/17/18 10:33 11/17/18 10:33 Results - Labs CBC & Chem 7: 11/17/18 04:09 11/16/18 04:18 Labs: Last Result Calcium 8.5 mg/dL (8.6-10.3) L 11/16/18 04:18 Triglycerides 97 mg/dL (< 150) 11/06/18 06:08 Entire Visit Hgb 12.2 g/dL (11.5-15.4) 11/17/18 04:09 Hct 37.9 % (35.3-44.9) 11/17/18 04:09 Total Bilirubin 0.5 mg/dL (0.3-1.0) 11/12/18 07:16 AST 11 Units/L (13-39) L 11/12/18 07:16 ALT 10 Units/L (7-52) 11/12/18 07:16 Amylase 54 Units/L (29-103) 11/17/18 04:09 Lipase 68 Units/L (11-82) 11/17/18 04:09 - Attending Attestation Agree with ERCP with probable sphincterotomy and stone extraction post lap cholecystectomy I have personally performed a face to face evaluation on this patient. I have reviewed and agree with the care plan. History and Exam by me shows:
[2018-11-10] MEDS ORDERED: Ondansetron 4 MG/2 ML VIAL ONE (12:04)
[2018-11-10] MEDS ORDERED: Dexamethasone 4 MG/ML VIAL ONE (12:04)
[2018-11-10] MEDS ORDERED: Lidocaine -MPF 4% 5 ML AMPUL ONE (12:04)
[2018-11-10] MEDS ORDERED: Lidocaine -MPF 2% 2 ML VIAL ONE ×2 (12:04→12:37)
[2018-11-10] MEDS ORDERED: *HR* Midazolam HCl 2 MG/2 ML VIAL ONE (12:04)
[2018-11-10] MEDS ORDERED: *HR* Propofol 200 MG/20 ML VIAL IVP ONE (12:04)
[2018-11-10] MEDS ORDERED: *HR* FentaNYL (PF) 100 MCG/2 ML VIAL ONE (12:04)
--- NOTE | 2018-11-10 12:06 | General Surgery Progress Note ---
Date of Encounter: 11/10/18 Time of Encounter: 12:01 Subjective Narrative: General Surgery - POD #2 Patient feeling well, minimal postoperative pain and nausea. The nausea may be due to narcotic pain meds. Maximum temperature in the last 24 hours 99.3; pulse 101-104, respiratory rate 18, blood pressure 125/84 Lungs: Clear Abdomen: Obese, soft, minimal right-sided tenderness. Port sites intact, clean and dry. Laboratories: Increased WBC of 27.8, neutrophils also increased to 22.2 hem oglobin 11.7, hematocrit 34.7. Platelet count 391,000. Electrolytes notable for a sodium of 132; otherwise her electrolytes are within acceptable range. Impression: Gallstone pancreatitis. Postoperative day #2, status post laparoscopic cholecystectomy with intraoperative cholangiogram. The cholangiogram demonstrating a filling defect in the distal common bile duct consistent with choledocholithiasis Awaiting ERCP which is scheduled later today Suspect the leukocytosis and neutrophilia as well as complaints of pain/nausea secondary to the choledocholithiasis. Recommendations: Continue IV antibiotics pending the ERCP and resolution of the leukocytosis/neutrophilia Monitor for recurrent pancreatitis following the ERCP. Objective Vital Signs - Last 8 Hours Temp Pulse Resp BP Pulse Ox 11/10/18 11:35 97.2 F L 104 18 125/84 95 11/10/18 07:22 99.1 F 101 18 118/77 97 Intake and Output 11/09/18 11/10/18 11/10/18 23:59 07:59 15:59 Intake Total 1700 / 1700 100 / 100 100 / 100 Output Total 0 / 0 0 / 0 Balance 1700 / 1700 100 / 100 100 / 100 Intake: IV Fluids 1100 / 1100 100 / 100 100 / 100 0.9 % Sodium Chloride 1,000 ML 1000 / 1000 @ 80 mls/hr IVC .[id number] [facility] Rx #:[id number] Zosyn 3.375 GM In 0.9 % Sodium 100 / 100 100 / 100 100 / 100 Chloride (Mini-Bag +) 100 ML @ 25 mls/hr IVPB Q8H [facility] Rx#: [id number] Oral 600 / 600 0 / 0 0 / 0 Output: Urine 0 / 0 0 / 0 Other: Meal Dinner Percent of Meal Consumed 0% # Urine Diapers 1 Weight 89 kg Blood Glucose* 128 126 Patient Weight 11/10/18 23:59 Weight 89 kg - Labs 11/10/18 09:08 11/10/18 07:51 Diabetes panel 11/10/18 Range/Units 07:51 Sodium 132 L (136-145) mEq/L Potassium 3.7 (3.5-5.1) mEq/L Chloride 103 (98-107) mEq/L Carbon Dioxide 22 L (23-29) mEq/L BUN 4 L (6-20) mg/dL Creatinine 0.32 L (0.60-1.20) mg/dL Glucose 125 H (70-105) mg/dL Calcium 8.2 L (8.6-10.3) mg/dL Calcium panel 11/10/18 Range/Units 07:51 Calcium 8.2 L (8.6-10.3) mg/dL Phosphorus 3.3 (2.7-4.5) mg/dL Pituitary panel 11/10/18 Range/Units 07:51 Sodium 132 L (136-145) mEq/L Potassium 3.7 (3.5-5.1) mEq/L Chloride 103 (98-107) mEq/L Carbon Dioxide 22 L (23-29) mEq/L BUN 4 L (6-20) mg/dL Creatinine 0.32 L (0.60-1.20) mg/dL Glucose 125 H (70-105) mg/dL Calcium 8.2 L (8.6-10.3) mg/dL Adrenal panel 11/10/18 Range/Units 07:51 Sodium 132 L (136-145) mEq/L Potassium 3.7 (3.5-5.1) mEq/L Chloride 103 (98-107) mEq/L Carbon Dioxide 22 L (23-29) mEq/L BUN 4 L (6-20) mg/dL Creatinine 0.32 L (0.60-1.20) mg/dL Glucose 125 H (70-105) mg/dL Calcium 8.2 L (8.6-10.3) mg/dL Consult Discharge Plan - Plan Referrals: Annalee Carbajal MD [Primary Care Provider] -
[2018-11-10] MEDS ORDERED: *HR* PHENYLEPHRINE 1,000 MCG/10 ML SYRINGE IVP ONE (12:37)
[2018-11-10] MEDS ORDERED: Propofol 500 MG/50 ML INFUS..BTL ONE (12:37)
[2018-11-10] MEDS ORDERED: Indomethacin 50 MG SUPP.RECT RC ONE (13:24)
--- NOTE | 2018-11-10 14:28 | Event Note ---
Date of Encounter: 11/10/18 Time of Encounter: 13:00 ERCP done. Sphincterotomy done, small amount of sludge. PD stent placed Rec: Clear advance as tolerated. F/U GI 3 weeks.
--- NOTE | 2018-11-10 14:50 | Anesthesia Evaluation Post Op ---
Date of Encounter: 11/10/18 Time of Encounter: 14:49 - Vital Signs Vital Signs: Vital Signs/O2 Sat, Most Current Temp Pulse Resp BP Pulse Ox 100.2 F H 98 24 137/82 94 11/10/18 14:38 11/10/18 14:38 11/10/18 14:38 11/10/18 14:38 11/10/18 14:38 - Lungs Lungs: Clear Ascult./Percussion - Airway Airway: Non-obstructed - Cardiovascular Regular Rate - Mental Status Mental Status: Alert & Oriented, Answers Appropriately - Pain Pain Scale: 0 Pain Scale used: Numeric (1 - 10) - Nausea Vomiting Nausea Vomiting: Not Present - Hydration Hydration: Ice chips, Has not voided - Discharge PostOp Status: Transfer Patient to floor
[2018-11-11] MEDS: Piperacillin/Tazobactam 3.375 GM in 0.9 % Sodium Chloride Mini Bag 100 ML IVPB SCH ×3 (05:55→21:39)
[2018-11-11 06:45] LABS: Basophils # 0.1 K/mcL (0.0-0.2); Basophils % 0.3 %; Eosinophils # 0.2 K/mcL (0.0-0.6); Eosinophils % 0.9 %; Hematocrit 32.3 % (35.3-44.9); Hemoglobin 10.9 g/dL (11.5-15.4); Immature Granulocytes % 2.4 % (0-4); Lymphocytes # 3.6 K/mcL (0.6-4.6); Lymphocytes % 17.5 %; Mean Corpuscular HGB Conc 33.7 g/dL (31.6-35.5); Mean Corpuscular Hemoglobin 28.5 pg (28.0-33.3); Mean Corpuscular Volume 84.3 fL (83.0-100.0); Mean Platelet Volume 10.5 fL (9.4-12.4); Monocytes # 1.4 K/mcL (0.0-1.3); Neutrophils # 14.9 K/mcL (1.6-8.9); Nucleated Red Blood Cells 0.1 /100 WBC (0); Platelet Count 354 K/mcL (140-400); Red Blood Count 3.83 M/mcL (3.82-4.97); Red Cell Distribution Width 13.9 % (11.5-14.5); Segmented Neutrophils % 71.9 %
[2018-11-11 07:00] LABS: Alanine Aminotransferase 13 Units/L (7-52); Albumin 2.7 g/dL (3.5-5.7); Albumin/Globulin Ratio 0.8 (1.1-2.2); Alkaline Phosphatase 64 Units/L (34-104); Aspartate Amino Transferase 14 Units/L (13-39); BUN/Creatinine Ratio 16 (6-26); Bilirubin,Total 0.5 mg/dL (0.3-1.0); Blood Urea Nitrogen 6 mg/dL (6-20); Calcium 8.2 mg/dL (8.6-10.3); Carbon Dioxide 25 mEq/L (23-29); Chloride 105 mEq/L (98-107); Globulin 3.2 g/dL (2.4-3.5); Glucose 133 mg/dL (70-105); Magnesium 1.8 mg/dL (1.6-2.6); Osmolality,Calculated 282 (280-300); Phosphorous 3.7 mg/dL (2.7-4.5); Potassium 3.6 mEq/L (3.5-5.1); Sodium 136 mEq/L (136-145); Total Protein 5.9 g/dL (6.4-8.9); eGFR For Non-African Americans > 60 (> 60)
[2018-11-11] MEDS: Insulin LISPRO 300 UNITS/3 ML VIAL SQ SCH ×4 (07:30→20:47)
[2018-11-11] MEDS: Fluticasone Propionate Nasal 50 MCG/SPRAY BOTTLE NS SCH (08:19)
[2018-11-11] MEDS: Potassium Chloride Elixir 20 MEQ/15 ML UDC PO SCH (08:20)
[2018-11-11] MEDS: Pantoprazole 40 MG VIAL IVP SCH (08:20)
--- NOTE | 2018-11-11 13:07 | Internal Med Progress Note ---
Hospitalist Progress Note - Encounter Date of Encounter: 11/11/18 Time of Encounter: 13:04 - Subjective Interval History: Pt seen and examined with brother present at bedside. Pt denies any pain but reports of having diarrhea. States she has had two loose BM today. Denies any nausea, vomiting, fever, or chills s/p ERCP on 11/10/18 No overnight events reported Ten point ROS is negative except as listed above - Exam Vitals: Temp Pulse Resp BP Pulse Ox 97.9 F 98 18 125/80 95 11/11/18 10:54 11/11/18 10:54 11/11/18 10:54 11/11/18 10:54 11/11/18 10:54 Exam: General: No acute distress, alert and oriented to self and family, hx of MRDD, mental status at baseline HEENT: EOMI, NC/AT, no scleral icterus Respiratory: Clear to auscultate bilaterally, no wheezing, no rales Cardiovascular: Regular, Rate, Rhythm, No murmurs GI: Soft, Non tender, non distended, normal bowel sounds, surgical incision site clean Ext: contracted LE Neuro: Alert and oriented - Assessment and Plan (1) Acute pancreatitis Current Visit: Yes Status: Acute Assessment and Plan: GI evaluation appreciated continue IV fluids, pain management, anti-emetic support as needed clinically improving ID evaluation appreciated (2) Sepsis Current Visit: Yes Status: Resolved Assessment and Plan: likely secondary to acute pancreatitis continue management as listed above (3) Cholecystitis with cholelithiasis Current Visit: Yes Status: Acute Assessment and Plan: cholecytitis ruled out choledocholithiasis reported on cholangiogram s/p Laproscopic Cholecystectomy (date of surgery: 11/08/18) surgery evaluation appreciated continue IV abx pain control will advance diet as tolerated GI input appreciated, s/p ERCP on 11/10/18 tentative d/c in am with PO abx depending on clinical status (4) Hyperglycemia Current Visit: Yes Status: Acute Assessment and Plan: BG better controlled No reported history of DM HbA1C noted noted to be in prediabetic range continue sliding scale insulin algorithm and monitor FS and BG (5) Metabolic acidosis Current Visit: Yes Status: Resolved Assessment and Plan: resolved (6) DVT prophylaxis Current Visit: Yes Status: Acute Assessment and Plan: Heparin SQ (7) Electrolyte abnormality Current Visit: Yes Status: Resolved Assessment and Plan: resolved will continue to closely monitor electrolytes and replace as needed DVT Prophylaxis: Heparin SQ - Time Spent with Patient Total time spent is greater than 50% in coordination of care (as documented) at patient's floor/unit and/or counseling patient: Plan of Care Discussed with: patient (patient/family/RN/case management) Internal Medicine: Result - Labs CBC & Chem 7: 11/11/18 05:46 11/11/18 05:46 Labs: Short CBC 11/11/18 Range/Units 05:46 WBC 20.6 H (4.3-11.1) K/mcL Hgb 10.9 L (11.5-15.4) g/dL Hct 32.3 L (35.3-44.9) % Plt Count 354 (140-400) K/mcL Neutrophils # 14.9 H (1.6-8.9) K/mcL BMP 11/11/18 05:46 Sodium 136 Potassium 3.6 Chloride 105 Carbon Dioxide 25 BUN 6 Creatinine 0.37 L Glucose 133 H Calcium 8.2 L Liver Function 11/11/18 Range/Units 05:46 Total Bilirubin 0.5 (0.3-1.0) mg/dL AST 14 (13-39) Units/L ALT 13 (7-52) Units/L Alkaline Phosphatase 64 (34-104) Units/L Albumin 2.7 L (3.5-5.7) g/dL - Impressions Impressions Cath/Invasive Procedure 11/10/18 00:00 IMPRESSION: Intraoperative fluoroscopy provided for ERCP. Please refer to the procedure report for further details. D/ / Zeke Aldana MD / Zeke Aldana MD Interpreting Provider: Zeke Aldana MD Consult Discharge Plan - Plan Referrals: Annalee Carbajal MD [Primary Care Provider] - ____ (1) Acute pancreatitis Qualifiers: Pancreatitis type: biliary Acute pancreatitis complication: no infection or necrosis Qualified Code(s): K85.10 - Biliary acute pancreatitis without necrosis or infection (2) Sepsis Qualifiers: Sepsis type: sepsis due to unspecified organism Qualified Code(s): A41.9 - Sepsis, unspecified organism (3) Cholecystitis with cholelithiasis Qualifiers: Cholelithiasis location: bile duct Cholecystitis acuity: acute and chronic Biliary obstruction: without biliary obstruction Qualified Code(s): K80.46 - Calculus of bile duct with acute and chronic cholecystitis without obstruction
--- NOTE | 2018-11-11 14:42 | General Surgery Progress Note ---
Date of Encounter: 11/11/18 Time of Encounter: 14:37 Subjective Narrative: General Surgery - POD #3 Patient feeling well; denies abdominal pain. Her brother who is at her bedside continuously, notes several diarrheal BMs The patient is afebrile, currently 97.9; pulse 98, respirations 18, blood pressure 125/80. Lungs: Clear Abdomen: Obese, soft, nontender. Port sites intact clean and dry. Status post ERCP With sphincterotomy and placement of biliary stent. Small amount of sludge described. Unclear whether stone encountered. Imaging at the time of ERCP suggested the presence of a filling defect distal common duct. Status postcholecystectomy, postoperative day #3; pathology demonstrates chronic cholecystitis cholelithiasis Acceptable status postop though persistent leukocytosis noted. White count 20.6 with 14.9 neutrophils (both improved since yesterday); 1.4 monocytes Electrolytes, BUN, creatinine within an acceptable range LFTs now within normal limits. Possible postcholecystectomy diarrhea. Continue to monitor. Objective Vital Signs - Last 8 Hours Temp Pulse Resp BP Pulse Ox 11/11/18 10:54 97.9 F 98 18 125/80 95 11/11/18 08:02 98.0 F 98 18 115/79 94 Intake and Output 11/10/18 11/11/18 11/11/18 23:59 07:59 15:59 Intake Total 100 / 100 100 / 100 220 / 220 Balance 100 / 100 100 / 100 220 / 220 Intake: IV Fluids 100 / 100 100 / 100 100 / 100 Zosyn 3.375 GM In 0.9 % Sodium 100 / 100 100 / 100 100 / 100 Chloride (Mini-Bag +) 100 ML @ 25 mls/hr IVPB Q8H [facility] Rx#: [id number] Oral 120 / 120 Other: Meal CLEARS Stool Size Smear Stool Consistency loose Stool Characteristics Normal for Patient Stool Color Brown # Urine Diapers 2 1 1 # Bowel Movements 1 Weight 85.5 kg Blood Glucose* 198 160 Patient Weight 11/11/18 23:59 Weight 85.5 kg - Labs 11/11/18 05:46 11/11/18 05:46 Diabetes panel 11/11/18 Range/Units 05:46 Sodium 136 (136-145) mEq/L Potassium 3.6 (3.5-5.1) mEq/L Chloride 105 (98-107) mEq/L Carbon Dioxide 25 (23-29) mEq/L BUN 6 (6-20) mg/dL Creatinine 0.37 L (0.60-1.20) mg/dL Glucose 133 H (70-105) mg/dL Calcium 8.2 L (8.6-10.3) mg/dL AST 14 (13-39) Units/L ALT 13 (7-52) Units/L Alkaline Phosphatase 64 (34-104) Units/L Albumin 2.7 L (3.5-5.7) g/dL Calcium panel 11/11/18 Range/Units 05:46 Calcium 8.2 L (8.6-10.3) mg/dL Phosphorus 3.7 (2.7-4.5) mg/dL Albumin 2.7 L (3.5-5.7) g/dL Pituitary panel 11/11/18 Range/Units 05:46 Sodium 136 (136-145) mEq/L Potassium 3.6 (3.5-5.1) mEq/L Chloride 105 (98-107) mEq/L Carbon Dioxide 25 (23-29) mEq/L BUN 6 (6-20) mg/dL Creatinine 0.37 L (0.60-1.20) mg/dL Glucose 133 H (70-105) mg/dL Calcium 8.2 L (8.6-10.3) mg/dL Adrenal panel 11/11/18 Range/Units 05:46 Sodium 136 (136-145) mEq/L Potassium 3.6 (3.5-5.1) mEq/L Chloride 105 (98-107) mEq/L Carbon Dioxide 25 (23-29) mEq/L BUN 6 (6-20) mg/dL Creatinine 0.37 L (0.60-1.20) mg/dL Glucose 133 H (70-105) mg/dL Calcium 8.2 L (8.6-10.3) mg/dL Total Bilirubin 0.5 (0.3-1.0) mg/dL AST 14 (13-39) Units/L ALT 13 (7-52) Units/L Alkaline Phosphatase 64 (34-104) Units/L Albumin 2.7 L (3.5-5.7) g/dL Consult Discharge Plan - Plan Referrals: Annalee Carbajal MD [Primary Care Provider] -
[2018-11-12] MEDS: Piperacillin/Tazobactam 3.375 GM in 0.9 % Sodium Chloride Mini Bag 100 ML IVPB SCH ×3 (05:47→20:42)
[2018-11-12 07:26] LABS: Basophils # 0.1 K/mcL (0.0-0.2); Basophils % 0.4 %; Eosinophils # 0.6 K/mcL (0.0-0.6); Eosinophils % 2.5 %; Hematocrit 33.9 % (35.3-44.9); Hemoglobin 11.2 g/dL (11.5-15.4); Immature Granulocytes % 2.4 % (0-4); Lymphocytes % 13.2 %; Mean Corpuscular Hemoglobin 28.6 pg (28.0-33.3); Mean Corpuscular Volume 86.7 fL (83.0-100.0); Mean Platelet Volume 9.9 fL (9.4-12.4); Monocytes # 1.7 K/mcL (0.0-1.3); Monocytes % 7.4 %; Neutrophils # 16.9 K/mcL (1.6-8.9); Nucleated Red Blood Cells 0.1 /100 WBC (0); Platelet Count 416 K/mcL (140-400); Red Blood Count 3.91 M/mcL (3.82-4.97); Segmented Neutrophils % 74.1 %
[2018-11-12 07:47] LABS: Alanine Aminotransferase 10 Units/L (7-52); Albumin 2.8 g/dL (3.5-5.7); Albumin/Globulin Ratio 0.8 (1.1-2.2); Alkaline Phosphatase 68 Units/L (34-104); Aspartate Amino Transferase 11 Units/L (13-39); BUN/Creatinine Ratio 13 (6-26); Bilirubin,Total 0.5 mg/dL (0.3-1.0); Blood Urea Nitrogen 5 mg/dL (6-20); Calcium 8.5 mg/dL (8.6-10.3); Carbon Dioxide 23 mEq/L (23-29); Chloride 103 mEq/L (98-107); Globulin 3.4 g/dL (2.4-3.5); Glucose 139 mg/dL (70-105); Magnesium 1.8 mg/dL (1.6-2.6); Osmolality,Calculated 278 (280-300); Phosphorous 3.9 mg/dL (2.7-4.5); Potassium 3.8 mEq/L (3.5-5.1); Sodium 134 mEq/L (136-145); Total Protein 6.2 g/dL (6.4-8.9); eGFR For Non-African Americans > 60 (> 60)
[2018-11-12] MEDS: Insulin LISPRO 300 UNITS/3 ML VIAL SQ SCH ×4 (08:54→20:42)
[2018-11-12] MEDS: Potassium Chloride Elixir 20 MEQ/15 ML UDC PO SCH (09:31)
[2018-11-12] MEDS: Fluticasone Propionate Nasal 50 MCG/SPRAY BOTTLE NS SCH (09:32)
[2018-11-12] MEDS: Pantoprazole 40 MG VIAL IVP SCH (09:33)
--- NOTE | 2018-11-12 14:40 | Internal Med Progress Note ---
Hospitalist Progress Note - Encounter Date of Encounter: 11/12/18 Time of Encounter: 14:38 - Subjective Interval History: Pt seen and examined with brother present at bedside. Pt sitting in bed and denies any pain or diarrhea No overnight events reported ten point ROS is negative except as listed above noted to have worsening leukocytosis, will continue IV abx for another day, tentative d/c in am if remains afebrile and clinically stable - Exam Vitals: Temp Pulse Resp BP Pulse Ox 98.8 F 100 16 127/86 96 11/12/18 08:22 11/12/18 08:22 11/12/18 08:22 11/12/18 08:22 11/12/18 08:22 Exam: General: No acute distress, alert and oriented to self and family, hx of MRDD, mental status at baseline HEENT: EOMI, NC/AT, no scleral icterus Respiratory: Clear to auscultate bilaterally, no wheezing, no rales Cardiovascular: Regular, Rate, Rhythm, No murmurs GI: Soft, Non tender, non distended, normal bowel sounds, surgical incision site clean Ext: contracted LE Neuro: Alert and oriented - Assessment and Plan (1) Acute pancreatitis Current Visit: Yes Status: Acute Assessment and Plan: GI evaluation appreciated continue IV fluids, pain management, anti-emetic support as needed clinically improving ID evaluation appreciated (2) Sepsis Current Visit: Yes Status: Resolved Assessment and Plan: likely secondary to acute pancreatitis continue management as listed above (3) Cholecystitis with cholelithiasis Current Visit: Yes Status: Acute Assessment and Plan: cholecytitis ruled out choledocholithiasis reported on cholangiogram s/p Laproscopic Cholecystectomy (date of surgery: 11/08/18) surgery evaluation appreciated continue IV abx pain control will advance diet as tolerated GI input appreciated, s/p ERCP on 11/10/18 tentative d/c in am with PO abx depending on clinical status (4) Hyperglycemia Current Visit: Yes Status: Acute Assessment and Plan: BG better controlled No reported history of DM HbA1C noted noted to be in prediabetic range continue sliding scale insulin algorithm and monitor FS and BG (5) Metabolic acidosis Current Visit: Yes Status: Resolved Assessment and Plan: resolved (6) DVT prophylaxis Current Visit: Yes Status: Acute Assessment and Plan: Heparin SQ (7) Electrolyte abnormality Current Visit: Yes Status: Resolved Assessment and Plan: resolved will continue to closely monitor electrolytes and replace as needed DVT Prophylaxis: Heparin SQ - Time Spent with Patient Total time spent is greater than 50% in coordination of care (as documented) at patient's floor/unit and/or counseling patient: Plan of Care Discussed with: patient (patient/family/RN/case management/human performance consultant) Internal Medicine: Result - Labs CBC & Chem 7: 11/12/18 07:16 11/12/18 07:16 Labs: Short CBC 11/12/18 Range/Units 07:16 WBC 22.9 H (4.3-11.1) K/mcL Hgb 11.2 L (11.5-15.4) g/dL Hct 33.9 L (35.3-44.9) % Plt Count 416 H (140-400) K/mcL Neutrophils # 16.9 H (1.6-8.9) K/mcL BMP 11/12/18 07:16 Sodium 134 L Potassium 3.8 Chloride 103 Carbon Dioxide 23 BUN 5 L Creatinine 0.38 L Glucose 139 H Calcium 8.5 L Liver Function 11/12/18 Range/Units 07:16 Total Bilirubin 0.5 (0.3-1.0) mg/dL AST 11 L (13-39) Units/L ALT 10 (7-52) Units/L Alkaline Phosphatase 68 (34-104) Units/L Albumin 2.8 L (3.5-5.7) g/dL Consult Discharge Plan - Plan Referrals: Annalee Carbajal MD [Primary Care Provider] - (1) Acute pancreatitis Qualifiers: Pancreatitis type: biliary Acute pancreatitis complication: no infection or necrosis Qualified Code(s): K85.10 - Biliary acute pancreatitis without necrosis or infection (2) Sepsis Qualifiers: Sepsis type: sepsis due to unspecified organism Qualified Code(s): A41.9 - Sepsis, unspecified organism (3) Cholecystitis with cholelithiasis Qualifiers: Cholelithiasis location: bile duct Cholecystitis acuity: acute and chronic Biliary obstruction: without biliary obstruction Qualified Code(s): K80.46 - Calculus of bile duct with acute and chronic cholecystitis without obstruction
[2018-11-12] MEDS: Acetaminophen 325 MG TABLET PO PRN (16:58)
--- NOTE | 2018-11-12 17:22 | General Surgery Progress Note ---
Date of Encounter: 11/12/18 Time of Encounter: 16:50 Subjective Narrative: General Surgery - POD #4 Patient feeling well, voicing no complaints Lungs clear Abdomen soft nontender; port sites intact clean and dry. Labs: WBC has increased to 22.9 with accompanying increase in neutrophils to 1 6.9; monocytes 1.7; hemoglobin 11.2; hematocrit 33.9. Electrolytes notable for sodium 134 otherwise unremarkable, BUN 5, creatinine 0.38 Phosphorus 3.9, magnesium 1.8; LFTs within normal limits. AST 11 (low) Impression: Postoperative day #4, status post laparoscopic cholecystectomy to presentation with gallstone pancreatitis. ERCP completed 11/12/18. LFTs have returned to normal but leukocytosis persists and has increased in the last 24 hours. Neutrophils also increased. Recommendations: Check CBC in a.m. if continues to rise consider CT abdomen and pelvis with particular focus on the pancreas. Objective Intake and Output 11/12/18 11/12/18 11/12/18 07:59 15:59 23:59 Intake Total 100 / 100 100 / 100 Balance 100 / 100 100 / 100 Intake: IV Fluids 100 / 100 100 / 100 Zosyn 3.375 GM In 0.9 % Sodium 100 / 100 100 / 100 Chloride (Mini-Bag +) 100 ML @ 25 mls/hr IVPB Q8H [facility] Rx#: [id number] Other: Stool Size Moderate Stool Consistency soft Stool Color Golden Colored # Urine Diapers 1 1 # Bowel Movement Diapers 2 Weight 85.7 kg Blood Glucose* 127 Patient Weight 11/12/18 23:59 Weight 85.7 kg - Labs 11/12/18 07:16 11/12/18 07:16 Diabetes panel 11/12/18 Range/Units 07:16 Sodium 134 L (136-145) mEq/L Potassium 3.8 (3.5-5.1) mEq/L Chloride 103 (98-107) mEq/L Carbon Dioxide 23 (23-29) mEq/L BUN 5 L (6-20) mg/dL Creatinine 0.38 L (0.60-1.20) mg/dL Glucose 139 H (70-105) mg/dL Calcium 8.5 L (8.6-10.3) mg/dL AST 11 L (13-39) Units/L ALT 10 (7-52) Units/L Alkaline Phosphatase 68 (34-104) Units/L Albumin 2.8 L (3.5-5.7) g/dL Calcium panel 11/12/18 Range/Units 07:16 Calcium 8.5 L (8.6-10.3) mg/dL Phosphorus 3.9 (2.7-4.5) mg/dL Albumin 2.8 L (3.5-5.7) g/dL Pituitary panel 11/12/18 Range/Units 07:16 Sodium 134 L (136-145) mEq/L Potassium 3.8 (3.5-5.1) mEq/L Chloride 103 (98-107) mEq/L Carbon Dioxide 23 (23-29) mEq/L BUN 5 L (6-20) mg/dL Creatinine 0.38 L (0.60-1.20) mg/dL Glucose 139 H (70-105) mg/dL Calcium 8.5 L (8.6-10.3) mg/dL Adrenal panel 11/12/18 Range/Units 07:16 Sodium 134 L (136-145) mEq/L Potassium 3.8 (3.5-5.1) mEq/L Chloride 103 (98-107) mEq/L Carbon Dioxide 23 (23-29) mEq/L BUN 5 L (6-20) mg/dL Creatinine 0.38 L (0.60-1.20) mg/dL Glucose 139 H (70-105) mg/dL Calcium 8.5 L (8.6-10.3) mg/dL Total Bilirubin 0.5 (0.3-1.0) mg/dL AST 11 L (13-39) Units/L ALT 10 (7-52) Units/L Alkaline Phosphatase 68 (34-104) Units/L Albumin 2.8 L (3.5-5.7) g/dL Consult Discharge Plan - Plan Referrals: Annalee Carbajal MD [Primary Care Provider] -
[2018-11-13] MEDS: Piperacillin/Tazobactam 3.375 GM in 0.9 % Sodium Chloride Mini Bag 100 ML IVPB SCH ×3 (05:11→21:00)
[2018-11-13 05:58] LABS: Basophils # 0.1 K/mcL (0.0-0.2); Basophils % 0.5 %; Eosinophils # 0.9 K/mcL (0.0-0.6); Eosinophils % 3.7 %; Hematocrit 34.5 % (35.3-44.9); Hemoglobin 11.3 g/dL (11.5-15.4); Immature Granulocytes % 3.2 % (0-4); Lymphocytes # 3.7 K/mcL (0.6-4.6); Lymphocytes % 14.7 %; Mean Corpuscular HGB Conc 32.8 g/dL (31.6-35.5); Mean Corpuscular Hemoglobin 28.8 pg (28.0-33.3); Mean Corpuscular Volume 87.8 fL (83.0-100.0); Mean Platelet Volume 10.7 fL (9.4-12.4); Monocytes # 1.9 K/mcL (0.0-1.3); Monocytes % 7.5 %; Neutrophils # 17.5 K/mcL (1.6-8.9); Nucleated Red Blood Cells 0.1 /100 WBC (0); Platelet Count 426 K/mcL (140-400); Red Blood Count 3.93 M/mcL (3.82-4.97); Red Cell Distribution Width 13.8 % (11.5-14.5); Segmented Neutrophils % 70.4 %
[2018-11-13 06:13] LABS: BUN/Creatinine Ratio 15 (6-26); Blood Urea Nitrogen 6 mg/dL (6-20); Calcium 8.5 mg/dL (8.6-10.3); Carbon Dioxide 22 mEq/L (23-29); Chloride 104 mEq/L (98-107); Glucose 134 mg/dL (70-105); Magnesium 1.8 mg/dL (1.6-2.6); Osmolality,Calculated 280 (280-300); Phosphorous 3.6 mg/dL (2.7-4.5); Potassium 4.1 mEq/L (3.5-5.1); Sodium 135 mEq/L (136-145); eGFR For Non-African Americans > 60 (> 60)
[2018-11-13] MEDS: Pantoprazole 40 MG VIAL IVP SCH (08:08)
[2018-11-13] MEDS: Fluticasone Propionate Nasal 50 MCG/SPRAY BOTTLE NS SCH (08:09)
[2018-11-13] MEDS: Insulin LISPRO 300 UNITS/3 ML VIAL SQ SCH ×4 (08:10→20:59)
[2018-11-13] MEDS: Potassium Chloride Elixir 20 MEQ/15 ML UDC PO SCH (08:11)
[2018-11-13] MEDS ORDERED: Isovue-370 500 ML BOTTLE IVP ONE (12:14)
--- NOTE | 2018-11-13 13:27 | General Surgery Progress Note ---
Date of Encounter: 11/13/18 Time of Encounter: 13:05 Subjective Narrative: General Surgery - POD #5 Patient feeling well, voicing no complaints. Tolerating regular diet. Significant findings on physical examination- lungs clear, abdomen soft nontender Maximum temperature 99.2, pulse 99-101, respiratory rate 14-16, blood pressure 133/84 Despite the lack of physical findings, leukocytosis continues to increase, currently 24.9 with neutrophils increased to 7.5, monocytes 1.9. CT abdomen and pelvis completed this morning reviewed with [facility] radiology. Pertinent findings include interval development of small bilateral pleural effusions and minor bibasilar subsegmental atelectasis. The pancreas which was unenhanced appears normal. Peripancreatic stranding is Present but significantly diminished from preoperative CT. No discrete peripancreatic fluid collections. No detected intra-abdominal or pelvic abscesses. Discussed with Dr. Santoyo, [facility] hospitalist. Recommendations: Discharge home with lab work to be obtained, 11/16/18 with follow-up in my office shortly thereafter. Family to monitor temperature and patient's status post discharge and notify me of any concerns such as fevers, increasing pain, nausea, vomiting, etc. Objective Vital Signs - Last 8 Hours Temp Pulse Resp BP Pulse Ox 11/13/18 10:27 98.8 F 101 14 133/84 96 11/13/18 06:46 99.2 F 99 15 128/81 91 Intake and Output 11/12/18 11/13/18 11/13/18 23:59 07:59 15:59 Intake Total 100 / 100 100 / 100 580 / 580 Balance 100 / 100 100 / 100 580 / 580 Intake: IV Fluids 100 / 100 100 / 100 100 / 100 Zosyn 3.375 GM In 0.9 % Sodium 100 / 100 100 / 100 100 / 100 Chloride (Mini-Bag +) 100 ML @ 25 mls/hr IVPB Q8H [facility] Rx#: [id number] Oral 0 / 0 0 / 0 480 / 480 Other: Meal Breakfast Percent of Meal Consumed 65% Stool Size Moderate Stool Consistency soft Stool Color Brown # Urine Diapers 1 1 1 # Bowel Movement Diapers 1 Blood Glucose* 144 142 117 - Labs 11/13/18 04:37 11/13/18 04:37 Diabetes panel 11/13/18 Range/Units 04:37 Sodium 135 L (136-145) mEq/L Potassium 4.1 (3.5-5.1) mEq/L Chloride 104 (98-107) mEq/L Carbon Dioxide 22 L (23-29) mEq/L BUN 6 (6-20) mg/dL Creatinine 0.41 L (0.60-1.20) mg/dL Glucose 134 H (70-105) mg/dL Calcium 8.5 L (8.6-10.3) mg/dL Calcium panel 11/13/18 Range/Units 04:37 Calcium 8.5 L (8.6-10.3) mg/dL Phosphorus 3.6 (2.7-4.5) mg/dL Pituitary panel 11/13/18 Range/Units 04:37 Sodium 135 L (136-145) mEq/L Potassium 4.1 (3.5-5.1) mEq/L Chloride 104 (98-107) mEq/L Carbon Dioxide 22 L (23-29) mEq/L BUN 6 (6-20) mg/dL Creatinine 0.41 L (0.60-1.20) mg/dL Glucose 134 H (70-105) mg/dL Calcium 8.5 L (8.6-10.3) mg/dL Adrenal panel 11/13/18 Range/Units 04:37 Sodium 135 L (136-145) mEq/L Potassium 4.1 (3.5-5.1) mEq/L Chloride 104 (98-107) mEq/L Carbon Dioxide 22 L (23-29) mEq/L BUN 6 (6-20) mg/dL Creatinine 0.41 L (0.60-1.20) mg/dL Glucose 134 H (70-105) mg/dL Calcium 8.5 L (8.6-10.3) mg/dL Consult Discharge Plan - Plan Referrals: Annalee Carbajal MD [Primary Care Provider] -
--- NOTE | 2018-11-13 13:52 | Discharge Summary ---
Date of Encounter: 11/13/18 Time of Encounter: 13:47 - Discharge Diagnosis (1) Acute pancreatitis Priority: Primary Status: Acute Qualifiers: Pancreatitis type: biliary Acute pancreatitis complication: no infection or necrosis Qualified Code(s): K85.10 - Biliary acute pancreatitis without necrosis or infection (2) Sepsis Priority: Primary Status: Resolved Qualifiers: Sepsis type: sepsis due to unspecified organism Qualified Code(s): A41.9 - Sepsis, unspecified organism (3) Cholecystitis with cholelithiasis Priority: Primary Status: Acute Qualifiers: Cholelithiasis location: bile duct Cholecystitis acuity: acute and chronic Biliary obstruction: without biliary obstruction Qualified Code(s): K80.46 - Calculus of bile duct with acute and chronic cholecystitis without obstruction (4) Hyperglycemia Priority: Secondary Status: Acute (5) Metabolic acidosis Priority: Secondary Status: Resolved (6) DVT prophylaxis Priority: Secondary Status: Acute (7) Electrolyte abnormality Priority: Secondary Status: Resolved Hospital course: Ms. Douglas is a 43 year old female with MRDD who was admitted for sepsis secondary to acute pancreatitis, acute cholecystitis with cholelithiasis. Patient was started on IV fluids, IV antibiotics, pain control. Patient was evaluated by gastroenterology and underwent MRCP. MRCP initially reported no stones. Patient was further evaluated by general surgery and underwent laparoscopic cholecystectomy. Patient also had a cholangiogram during the surgery which reported cholelithiasis for which GI was reconsulted. ERCP was performed and patient had an uncomplicated postoperative course. Patient continued to have leukocytosis postoperatively however continued to clinically improve. She has been tolerating diet appropriately. She is afebrile and not in any painful distress. Patient is seen and examined on the day of discharge. Patient denies any pain or discomfort and wishes to go home. Patient lives with family, and her brother takes care of her at home. Patient is medically stable for discharge to home with outpatient follow-up with general surgery, PCP, and GI after discharge. Patient is to follow up with general surgery on 11/16/2018, with repeat CBC prior to her appointment. Discharge care plan was discussed in detail with patient's family, who demonstrate understanding and agr ee with the discharge care and plan. Discharge discussed with: patient, family, nurse, leasing sales consultant - Time Spent with Patient Total time spent providing and/or coordinating discharge services: Time spent: Greater than 30 minutes - Discharge Medications Prescriptions: New RX: Acetaminophen [Tylenol] 650 mg PO Q6H PRN #20 tablet PRN Reason: pain or fever greater than 101 Ondansetron ODT [Zofran ODT] 4 mg SL Q6H #20 tab.rapdis Home Medications: Ondansetron ODT [Zofran ODT] 4 mg SL Q6H #20 tab.rapdis 11/13/18 [Rx] RX: Acetaminophen [Tylenol] 650 mg PO Q6H PRN #20 tablet 11/13/18 [Rx] Allergies/Adverse Reactions: Allergy/AdvReac Type Severity Reaction Status Date / Time No Known Allergies Allergy Verified 05/23/16 10:33 Date of admission: 11/04/18 17:13 Primary care physician: Annalee Carbajal MD Consults: 11/05/18 08:27 Consult to Infectious Diseases [CONS] Routine Consulting Provider: [facility] [place] Reason for Consult: sepsis Call Completed: Yes 11/06/18 08:27 Consult to Invasive Line Access Team [CONS] Routine Reason for Consult: limited IV access Line Type: EPIV 11/09/18 11:44 Consult to Gastroenterology [CONS] Routine Consulting Provider: Gastroenterology [facility] Reason for Consult: choledocholithiasis per intra operative cholangiogram Time Notified: 11:44 Call Completed: Yes Consult to Surgery [CONS] Routine Consulting Provider: Maurice Reid Reason for Consult: lap choley 11/09, provider already following. Call Completed: Yes Discharging clinician: Romy Santoyo Anticipated date of discharge: 11/13/18 - Constitutional Vitals: Temp Pulse Resp BP Pulse Ox 98.8 F 101 14 133/84 96 11/13/18 10:27 11/13/18 10:27 11/13/18 10:27 11/13/18 10:27 11/13/18 10:27 General appearance: Present: no acute distress, obese Exam: General: No acute distress, alert and oriented to self and family, hx of MRDD, mental status at baseline HEENT: EOMI, NC/AT, no scleral icterus Respiratory: Clear to auscultate bilaterally, no wheezing, no rales Cardiovascular: Regular, Rate, Rhythm, No murmurs GI: Soft, Non tender, non distended, normal bowel sounds, surgical incision site clean Ext: contracted LE Neuro: Alert and oriented - Patient Status Disposition: Home, Self-Care Condition: Fair - Ambulatory Orders Ambulatory Orders: Complete Blood Count [HEME] Time Frame: 3 Days, Facility: [facility], Location: Lab - Discharge Instructions Follow Up With: Annalee Carbajal MD [Primary Care Provider] - Additional Instructions: 1. Please follow up with general surgery (Dr. Reid) on 11/16/2018. Please obtain the prescribed lab work prior to your appointment with Dr. Reid. 2. Please follow up with your primary care physician within 5 days after your discharge from the hospital 3. Please follow up with gastroenterology within 1-2 weeks after your discharge from the hospital 4. Please seek medical help immediately if you have difficulty breathing, abdominal pain, nausea, or vomiting. - Diet and Activity Diet: other (advance diet as tolerated. )
[2018-11-13] MEDS: 0.9 % Sodium Chloride 1,000 ML IVC SCH (15:40)
[2018-11-13] MEDS: Acetaminophen 325 MG TABLET PO PRN (15:40)
[2018-11-13 16:53] LABS: Bilirubin,Urine Negative (Negative); Blood,Urine Trace (Negative); Clarity,Urine Cloudy (Clear); Color,Urine Yellow (Yellow); Glucose,Urine (UA) Normal (Normal); Ketones,Urine Negative (Negative); Leukocyte Esterase,Urine Trace (Negative); Nitrite,Urine Negative (Negative); PH,Urine 7.5 pH Units (5.0-8.0); Protein,Urine Negative (Neg-Trace); Specific Gravity,Urine 1.005 (1.010-1.025); Urobilinogen,Urine Normal (Normal)
[2018-11-13 16:54] LABS: Bacteria,Urine None Seen per hpf (None-Few); Hyaline Casts,Urine None Seen per lpf (None-Few); Squamous Epithelial Cell,Urine Many per lpf (None-Few)
[2018-11-13] MEDS: *HR* OxyCODONE Immed Rel 5 MG TABLET PO PRN (19:33)
[2018-11-14 04:00] LABS: Hemoglobin 11.3 g/dL (11.5-15.4); Immature Granulocytes % 3.2 % (0-4); Mean Corpuscular Hemoglobin 28.4 pg (28.0-33.3); Red Blood Count 3.98 M/mcL (3.82-4.97)
[2018-11-14 04:01] LABS: BUN/Creatinine Ratio 16 (6-26); Blood Urea Nitrogen 6 mg/dL (6-20); Calcium 8.4 mg/dL (8.6-10.3); Carbon Dioxide 22 mEq/L (23-29); Chloride 104 mEq/L (98-107); Glucose 127 mg/dL (70-105); Magnesium 1.9 mg/dL (1.6-2.6); Osmolality,Calculated 279 (280-300); Phosphorous 4.2 mg/dL (2.7-4.5); Sodium 135 mEq/L (136-145); eGFR For Non-African Americans > 60 (> 60)
[2018-11-14 04:02] LABS: Basophils # 0.2 K/mcL (0.0-0.2); Basophils % 0.7 %; Eosinophils % 4.8 %; Hematocrit 34.2 % (35.3-44.9); Lymphocytes % 15.6 %; Mean Corpuscular Volume 85.9 fL (83.0-100.0); Mean Platelet Volume 10.4 fL (9.4-12.4); Monocytes # 1.6 K/mcL (0.0-1.3); Monocytes % 6.2 %; Nucleated Red Blood Cells 0.1 /100 WBC (0); Platelet Count 446 K/mcL (140-400); Red Cell Distribution Width 13.8 % (11.5-14.5); Segmented Neutrophils % 69.5 %
[2018-11-14 04:04] LABS: Eosinophils # 1.2 K/mcL (0.0-0.6)
[2018-11-14] MEDS: 0.9 % Sodium Chloride 1,000 ML IVC SCH ×2 (05:34→18:23)
[2018-11-14] MEDS: Piperacillin/Tazobactam 3.375 GM in 0.9 % Sodium Chloride Mini Bag 100 ML IVPB SCH ×3 (05:34→20:18)
--- NOTE | 2018-11-14 09:53 | Internal Med Progress Note ---
Hospitalist Progress Note - Encounter Date of Encounter: 11/14/18 Time of Encounter: 09:10 - Subjective Interval History: Patient seen and examined with present at bedside. Discharge was placed on hold yesterday due to fever and tachycardia. Patient currently afebrile but continues to have sinus tachycardia. She denies any pain or diarrhea at this time. No overnight events reported Ten point ROS is negative except as listed above - Exam Vitals: Temp Pulse Resp BP Pulse Ox 98.1 F 98 16 119/86 94 11/14/18 07:10 11/14/18 07:10 11/14/18 07:10 11/14/18 07:10 11/14/18 07:10 Exam: General: No acute distress, alert and oriented to self and family, hx of MRDD, mental status at baseline HEENT: EOMI, NC/AT, no scleral icterus Respiratory: Clear to auscultate bilaterally, no wheezing, no rales Cardiovascular: Regular, Rate, Rhythm, No murmurs GI: Soft, Non tender, non distended, normal bowel sounds, surgical incision site clean Ext: contracted LE Neuro: Alert and oriented - Assessment and Plan (1) Acute pancreatitis Current Visit: Yes Status: Acute Assessment and Plan: GI evaluation appreciated continue IV fluids, pain management, anti-emetic support as needed (2) Sepsis Current Visit: Yes Status: Resolved Assessment and Plan: likely secondary to acute pancreatitis continue management as listed above (3) Cholecystitis with cholelithiasis Current Visit: Yes Status: Acute Assessment and Plan: cholecytitis ruled out choledocholithiasis reported on cholangiogram s/p Laproscopic Cholecystectomy (date of surgery: 11/08/18) surgery evaluation appreciated continue IV abx pain control will advance diet as tolerated GI input appreciated, s/p ERCP on 11/10/18 leukocytosis persists and worsened from previous day will continue IV zosyn and add Metronidazole CXR reporting atelectasis, will initiate duonebs q4h UA negative for UTI blood cultures reporting no growth thus far (4) Hyperglycemia Current Visit: Yes Status: Acute Assessment and Plan: BG controlled No reported history of DM HbA1C noted noted to be in prediabetic range continue sliding scale insulin algorithm and monitor FS and BG (5) Metabolic acidosis Current Visit: Yes Status: Resolved Assessment and Plan: resolved (6) DVT prophylaxis Current Visit: Yes Status: Acute Assessment and Plan: Heparin SQ (7) Electrolyte abnormality Current Visit: Yes Status: Resolved Assessment and Plan: resolved will continue to closely monitor electrolytes and replace as needed DVT Prophylaxis: Heparin SQ - Time Spent with Patient Total time spent is greater than 50% in coordination of care (as documented) at patient's floor/unit and/or counseling patient: Plan of Care Discussed with: patient (patient/family/RN/quality consultant) Internal Medicine: Result - Labs CBC & Chem 7: 11/14/18 03:22 11/14/18 03:22 Labs: Short CBC 11/14/18 Range/Units 03:22 WBC 25.9 H (4.3-11.1) K/mcL Hgb 11.3 L (11.5-15.4) g/dL Hct 34.2 L (35.3-44.9) % Plt Count 446 H (140-400) K/mcL Neutrophils # 18.0 H (1.6-8.9) K/mcL BMP 11/14/18 03:22 Sodium 135 L Potassium 5.0 Chloride 104 Carbon Dioxide 22 L BUN 6 Creatinine 0.38 L Glucose 127 H Calcium 8.4 L Urine 11/13/18 Range/Units 16:42 Urine Color Yellow (Yellow) Urine Clarity Cloudy A (Clear) Urine pH 7.5 (5.0-8.0) pH Units Ur Specific [place] 1.005 L (1.010-1.025) Urine Protein Negative (Neg-Trace) mg/dL Urine Glucose (UA) Normal (Normal) mg/dL - Impressions Impressions Abdomen/Pelvis CT 11/13/18 08:57 IMPRESSION: 1. Interval placement of a presumed pancreatic duct stent noted in the head and neck region terminating in the duodenum. 2. New bilateral small pleural effusions most likely reactive to the pancreatitis. 3. Peripancreatic inflammatory changes in keeping with the history of acute pancreatitis again demonstrated. Fluid component has decreased. There is some reactive upper abdominal mesenteric lymphadenopathy. 4. Evaluation of the pancreas for necrosis is not accomplished in the absence of IV contrast. 5. 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 D/ / Ashutosh Muniz MD / Ashutosh Muniz MD Interpreting Provider: Ashutosh Muniz MD Chest X-Ray 11/13/18 15:13 IMPRESSION: Mild bibasilar atelectasis. No evident pneumonia. D/ / Fransico Parra MD / Fransico Parra MD Interpreting Provider: Fransico Parra MD Consult Discharge Plan - Plan Instructions: Cholecystitis (DC), Laparoscopic Cholecystectomy (DC) Additional Instructions: 1. Please follow up with general surgery (Dr. Reid) on 11/16/2018. Please obtain the prescribed lab work prior to your appointment with Dr. Reid. 2. Please follow up with your primary care physician within 5 days after your discharge from the hospital 3. Please follow up with gastroenterology within 1-2 weeks after your discharge from the hospital 4. Please seek medical help immediately if you have difficulty breathing, abdominal pain, nausea, or vomiting. Referrals: Annalee Carbajal MD [Primary Care Provider] - Fransico Aden MD [Partnered Physician] - 11/20/18 11:00 am (Follow up after hospital discharge.) Prescriptions: Acetaminophen [Tylenol] 650 mg PO Q6H PRN #20 tablet PRN Reason: pain or fever greater than 101 Ondansetron ODT [Zofran ODT] 4 mg SL Q6H #20 tab.rapdis (1) Acute pancreatitis Qualifiers: Pancreatitis type: biliary Acute pancreatitis complication: no infection or necrosis Qualified Code(s): K85.10 - Biliary acute pancreatitis without necrosis or infection (2) Sepsis Qualifiers: Sepsis type: sepsis due to unspecified organism Qualified Code(s): A41.9 - Sepsis, unspecified organism (3) Cholecystitis with cholelithiasis Qualifiers: Cholelithiasis location: bile duct Cholecystitis acuity: acute and chronic Biliary obstruction: without biliary obstruction Qualified Code(s): K80.46 - Calculus of bile duct with acute and chronic cholecystitis without obstruction
[2018-11-14] MEDS: Ipratropium/Albuterol Neb 3 ML IH SCH ×5 (10:16→23:59)
[2018-11-14] MEDS: Pantoprazole 40 MG VIAL IVP SCH (10:57)
[2018-11-14] MEDS: MetroNIDAZOLE 500 MG/100 ML 500 MG/100 ML BAG IVPB SCH ×3 (10:58→23:49)
[2018-11-14] MEDS: Fluticasone Propionate Nasal 50 MCG/SPRAY BOTTLE NS SCH (10:59)
[2018-11-14] MEDS: Insulin LISPRO 300 UNITS/3 ML VIAL SQ SCH ×4 (10:59→22:23)
[2018-11-14] MEDS: Potassium Chloride Elixir 20 MEQ/15 ML UDC PO SCH (10:59)
--- NOTE | 2018-11-14 11:14 | General Surgery Progress Note ---
Date of Encounter: 11/14/18 Time of Encounter: 10:45 Subjective Narrative: General Surgery - POD #6 Patient feeling well, voicing no complaints. Patient demonstrated low-grade temperature, 100.2, yesterday approximately 1500 hrs. No fevers since. Persistent tachycardia, ranging 101-114; respiratory rate 14-16, blood pressure stable at 121/84 Lungs: Clear; chest x-ray reviewed with [place] radiology. Mild bibasilar atelectasis without evidence of pneumonia is noted Abdomen: Soft, nontender. No palpable masses. No rebound. Port sites intact clean and dry. CT of the abdomen and pelvis completed yesterday without IV contrast was nondiagnostic. Peripancreatic inflammatory changes system with prior history of acute gallstone pancreatitis was demonstrated but appeared to be improved. Valuation for potential pancreatic necrosis is limited by the lack of IV contrast. Laboratories: WBC has increased again, 25.9; neutrophils increased to 18.0, monocytes improved to 1.6, eosinophils 1.2 hemoglobin stable at 11.3 with hematocrit 34.2. Platelet count 446,000 Electrolytes, BUN, creatinine, within an acceptable range. Impression: Postoperative day #6, status post laparoscopic cholecystectomy with intraoperative cholangiogram for gallstone pancreatitis. ERCP, completed, 11/10/18. Completion cholangiogram is described as normal. Pancreatic duct stenting completed. CT demonstrating persistent peripancreatic inflammatory changes may be the source of the patient's low-grade temp and tachycardia Amylase and lipase had normalized postop, however, have not been checked since. We will check amylase and lipase with a.m. labs. The source of the low-grade temp may also be pulmonary. The patient is unable to comply with the usual postop incentive spirometry. Aerosol therapy (albuterol or Proventil) recommended though this therapy may worsen the patient's tachycardia. Continue to monitor. Objective Vital Signs - Last 8 Hours Temp Pulse Resp BP Pulse Ox 11/14/18 10:16 16 94 11/14/18 10:11 97.0 F L 94 14 121/84 96 11/14/18 07:10 98.1 F 98 16 119/86 94 11/14/18 03:50 98.8 F 102 14 125/84 97 Intake and Output 11/13/18 11/14/18 11/14/18 23:59 07:59 15:59 Intake Total 460 / 460 1100 / 1100 240 / 240 Output Total 50 / 50 Balance 410 / 410 1100 / 1100 240 / 240 Intake: IV Fluids 100 / 100 1100 / 1100 0.9 % Sodium Chloride 1,000 ML 1000 / 1000 @ 75 mls/hr IVC .[id number] [facility] Rx #:[id number] Zosyn 3.375 GM In 0.9 % Sodium 100 / 100 100 / 100 Chloride (Mini-Bag +) 100 ML @ 25 mls/hr IVPB Q8H [facility] Rx#: [id number] Oral 360 / 360 0 / 0 240 / 240 Output: Urine 50 / 50 Other: Meal Dinner Breakfast Percent of Meal Consumed 10% 80% Stool Size Small Stool Consistency formed Stool Characteristics Normal for Patient Stool Color Brown # Urine Diapers 0 1 1 # Bowel Movements 0 1 # Bowel Movement Diapers 0 0 0 Weight 86 kg Blood Glucose* 168 136 Patient Weight 11/14/18 23:59 Weight 86 kg - Labs 11/14/18 03:22 11/14/18 03:22 Diabetes panel 11/14/18 Range/Units 03:22 Sodium 135 L (136-145) mEq/L Potassium 5.0 (3.5-5.1) mEq/L Chloride 104 (98-107) mEq/L Carbon Dioxide 22 L (23-29) mEq/L BUN 6 (6-20) mg/dL Creatinine 0.38 L (0.60-1.20) mg/dL Glucose 127 H (70-105) mg/dL Calcium 8.4 L (8.6-10.3) mg/dL Calcium panel 11/14/18 Range/Units 03:22 Calcium 8.4 L (8.6-10.3) mg/dL Phosphorus 4.2 (2.7-4.5) mg/dL Pituitary panel 11/14/18 Range/Units 03:22 Sodium 135 L (136-145) mEq/L Potassium 5.0 (3.5-5.1) mEq/L Chloride 104 (98-107) mEq/L Carbon Dioxide 22 L (23-29) mEq/L BUN 6 (6-20) mg/dL Creatinine 0.38 L (0.60-1.20) mg/dL Glucose 127 H (70-105) mg/dL Calcium 8.4 L (8.6-10.3) mg/dL Adrenal panel 11/14/18 Range/Units 03:22 Sodium 135 L (136-145) mEq/L Potassium 5.0 (3.5-5.1) mEq/L Chloride 104 (98-107) mEq/L Carbon Dioxide 22 L (23-29) mEq/L BUN 6 (6-20) mg/dL Creatinine 0.38 L (0.60-1.20) mg/dL Glucose 127 H (70-105) mg/dL Calcium 8.4 L (8.6-10.3) mg/dL Consult Discharge Plan - Plan Instructions: Cholecystitis (DC), Laparoscopic Cholecystectomy (DC) Additional Instructions: 1. Please follow up with general surgery (Dr. Reid) on 11/16/2018. Please obtain the prescribed lab work prior to your appointment with Dr. Reid. 2. Please follow up with your primary care physician within 5 days after your discharge from the hospital 3. Please follow up with gastroenterology within 1-2 weeks after your discharge from the hospital 4. Please seek medical help immediately if you have difficulty breathing, abdominal pain, nausea, or vomiting. Referrals: Annalee Carbajal MD [Primary Care Provider] - Fransico Aden MD [Partnered Physician] - 11/20/18 11:00 am (Follow up after hospital discharge.) Prescriptions: Acetaminophen [Tylenol] 650 mg PO Q6H PRN #20 tablet PRN Reason: pain or fever greater than 101 Ondansetron ODT [Zofran ODT] 4 mg SL Q6H #20 tab.bartdis
[2018-11-14] MEDS: Acetaminophen 325 MG TABLET PO PRN (20:18)
[2018-11-15] MEDS: Ipratropium/Albuterol Neb 3 ML IH SCH ×2 (03:44→07:30)
[2018-11-15] MEDS: Piperacillin/Tazobactam 3.375 GM in 0.9 % Sodium Chloride Mini Bag 100 ML IVPB SCH ×3 (05:09→21:55)
[2018-11-15] MEDS: 0.9 % Sodium Chloride 1,000 ML IVC SCH ×2 (05:26→22:06)
[2018-11-15] MEDS: Insulin LISPRO 300 UNITS/3 ML VIAL SQ SCH ×4 (08:59→22:07)
[2018-11-15] MEDS: Potassium Chloride Elixir 20 MEQ/15 ML UDC PO SCH (09:11)
[2018-11-15] MEDS: MetroNIDAZOLE 500 MG/100 ML 500 MG/100 ML BAG IVPB SCH ×2 (09:11→16:53)
[2018-11-15] MEDS: Pantoprazole 40 MG VIAL IVP SCH (09:12)
[2018-11-15] MEDS: Fluticasone Propionate Nasal 50 MCG/SPRAY BOTTLE NS SCH (09:12)
--- NOTE | 2018-11-15 10:20 | General Surgery Progress Note ---
Date of Encounter: 11/15/18 Time of Encounter: 10:17 Subjective Patient reports: no new complaints Narrative: General Suprgery - POD #7 Maximum temperature 99.3, at approximately 0400 this morning. Otherwise patient has been afebrile, pulse 90-110, respirations 16, BP 118/82 Patient voicing no complaints, denies abdominal pain. Lungs: Clear to auscultation Abdomen: Soft nontender Labs: No results today (apparently ordered labs this morning are still pending) Impression: postoperative day #7, status post laparoscopic cholecystectomy with intraoperative cholangiogram for gallstone pancreatitis Postoperative ERCP with pancreatic duct stenting. Filling defect demonstrated during intraoperative cholangiogram was not evident At the completion of the ERCP. Postoperative leukocytosis and low-grade fever of undetermined etiology. No new clinical findings. Objective Vital Signs - Last 8 Hours Temp Pulse Resp BP Pulse Ox 11/15/18 08:25 98.2 F 110 16 118/82 96 11/15/18 07:40 14 98 11/15/18 03:46 99.3 F 90 12 110/75 100 11/15/18 03:44 14 96 Intake and Output 11/14/18 11/15/18 11/15/18 23:59 07:59 15:59 Intake Total 1640 / 1640 1300 / 1300 340 / 340 Balance 1640 / 1640 1300 / 1300 340 / 340 Intake: IV Fluids 1300 / 1300 1200 / 1200 100 / 100 0.9 % Sodium Chloride 1,000 ML 1000 / 1000 1000 / 1000 @ 75 mls/hr IVC .[id number] [facility] Rx #:[id number] Flagyl Premix 500 MG/100 ML 500 200 / 200 100 / 100 mg In 100 ml @ 100 mls/hr IVPB Q8HR [facility] Rx#:[id number] Zosyn 3.375 GM In 0.9 % Sodium 100 / 100 100 / 100 100 / 100 Chloride (Mini-Bag +) 100 ML @ 25 mls/hr IVPB Q8H [facility] Rx#: [id number] Oral 340 / 340 100 / 100 240 / 240 Other: Meal Dinner Breakfast Percent of Meal Consumed 100% 75% # Urine Diapers 1 1 # Bowel Movement Diapers 0 Weight 80.1 kg Blood Glucose* 155 145 Patient Weight 11/15/18 23:59 Weight 80.1 kg - Labs 11/14/18 03:22 11/14/18 03:22 Consult Discharge Plan - Plan Instructions: Cholecystitis (DC), Laparoscopic Cholecystectomy (DC) Additional Instructions: 1. Please follow up with general surgery (Dr. Reid) on 11/16/2018. Please obtain the prescribed lab work prior to your appointment with Dr. Reid. 2. Please follow up with your primary care physician within 5 days after your discharge from the hospital 3. Please follow up with gastroenterology within 1-2 weeks after your discharge from the hospital 4. Please seek medical help immediately if you have difficulty breathing, abdominal pain, nausea, or vomiting. Referrals: Annalee Carbajal MD [Primary Care Provider] - Fransico Aden MD [Partnered Physician] - 11/20/18 11:00 am (Follow up after hospital discharge.) Prescriptions: Acetaminophen [Tylenol] 650 mg PO Q6H PRN #20 tablet PRN Reason: pain or fever greater than 101 Ondansetron ODT [Zofran ODT] 4 mg SL Q6H #20 tab.rapdis
[2018-11-15] MEDS ORDERED: Ipratropium/Albuterol Neb 3 ML IH PRN (10:30)
[2018-11-15] MEDS: *HR* OxyCODONE Immed Rel 5 MG TABLET PO PRN (12:11)
--- NOTE | 2018-11-15 13:00 | Internal Med Progress Note ---
Hospitalist Progress Note - Encounter Date of Encounter: 11/15/18 Time of Encounter: 12:51 - Subjective Interval History: Pt seen and examined with brother present at bedside. Pt reports of two episodes of loose BM earlier this morning. Denies any nausea or vomiting awaiting labs no overnight events reported ten point ROS is negative except as listed above - Exam Vitals: Temp Pulse Resp BP Pulse Ox 97.7 F 109 14 105/65 98 11/15/18 10:11 11/15/18 10:11 11/15/18 10:11 11/15/18 10:11 11/15/18 10:11 Exam: General: No acute distress, alert and oriented to self and family, hx of MRDD, mental status at baseline HEENT: EOMI, NC/AT, no scleral icterus Respiratory: Clear to auscultate bilaterally, no wheezing, no rales Cardiovascular: Regular, Rate, Rhythm, No murmurs GI: Soft, Non tender, non distended, normal bowel sounds, surgical incision site clean Ext: contracted LE Neuro: Alert and oriented - Assessment and Plan (1) Acute pancreatitis Current Visit: Yes Status: Acute Assessment and Plan: GI evaluation appreciated continue IV fluids, pain management, anti-emetic support as needed (2) Sepsis Current Visit: Yes Status: Resolved Assessment and Plan: likely secondary to acute pancreatitis continue management as listed above (3) Cholecystitis with cholelithiasis Current Visit: Yes Status: Acute Assessment and Plan: cholecytitis ruled out choledocholithiasis reported on cholangiogram s/p Laproscopic Cholecystectomy (date of surgery: 11/08/18) surgery evaluation appreciated continue IV abx pain control will advance diet as tolerated GI input appreciated, s/p ERCP on 11/10/18 leukocytosis persists and worsened from previous day will continue IV zosyn and add Metronidazole CXR reporting atelectasis, will initiate duonebs q4h UA negative for UTI blood cultures reporting no growth thus far (4) Hyperglycemia Current Visit: Yes Status: Acute Assessment and Plan: BG controlled No reported history of DM HbA1C noted noted to be in prediabetic range continue sliding scale insulin algorithm and monitor FS and BG (5) Metabolic acidosis Current Visit: Yes Status: Resolved Assessment and Plan: resolved (6) DVT prophylaxis Current Visit: Yes Status: Acute Assessment and Plan: Heparin SQ (7) Electrolyte abnormality Current Visit: Yes Status: Resolved Assessment and Plan: resolved will continue to closely monitor electrolytes and replace as needed DVT Prophylaxis: Heparin SQ - Time Spent with Patient Total time spent is greater than 50% in coordination of care (as documented) at patient's floor/unit and/or counseling patient: Plan of Care Discussed with: patient (patient/RN/family) Internal Medicine: Result - Labs CBC & Chem 7: 11/14/18 03:22 11/14/18 03:22 Consult Discharge Plan - Plan Instructions: Cholecystitis (DC), Laparoscopic Cholecystectomy (DC) Additional Instructions: 1. Please follow up with general surgery (Dr. Reid) on 11/16/2018. Please obtain the prescribed lab work prior to your appointment with Dr. Reid. 2. Please follow up with your primary care physician within 5 days after your discharge from the hospital 3. Please follow up with gastroenterology within 1-2 weeks after your discharge from the hospital 4. Please seek medical help immediately if you have difficulty breathing, abdominal pain, nausea, or vomiting. Referrals: Annalee Carbajal MD [Primary Care Provider] - Fransico Aden MD [Partnered Physician] - 11/20/18 11:00 am (Follow up after hospital discharge.) Prescriptions: Acetaminophen [Tylenol] 650 mg PO Q6H PRN #20 tablet PRN Reason: pain or fever greater than 101 Ondansetron ODT [Zofran ODT] 4 mg SL Q6H #20 tab.rapdis (1) Acute pancreatitis Qualifiers: Pancreatitis type: biliary Acute pancreatitis complication: no infection or necrosis Qualified Code(s): K85.10 - Biliary acute pancreatitis without necrosis or infection (2) Sepsis Qualifiers: Sepsis type: sepsis due to unspecified organism Qualified Code(s): A41.9 - Sepsis, unspecified organism (3) Cholecystitis with cholelithiasis Qualifiers: Cholelithiasis location: bile duct Cholecystitis acuity: acute and chronic Biliary obstruction: without biliary obstruction Qualified Code(s): K80.46 - Calculus of bile duct with acute and chronic cholecystitis without obstruction
[2018-11-15 13:44] LABS: Basophils # 0.2 K/mcL (0.0-0.2); Basophils % 0.9 %; Eosinophils # 0.9 K/mcL (0.0-0.6); Eosinophils % 4.3 %; Hematocrit 34.7 % (35.3-44.9); Hemoglobin 11.5 g/dL (11.5-15.4); Immature Granulocytes % 3.7 % (0-4); Immature Platelets 9.1 % (1.1-6.1); Lymphocytes # 2.5 K/mcL (0.6-4.6); Lymphocytes % 11.7 %; Mean Corpuscular HGB Conc 33.1 g/dL (31.6-35.5); Mean Corpuscular Hemoglobin 28.8 pg (28.0-33.3); Mean Platelet Volume 10.8 fL (9.4-12.4); Monocytes # 1.1 K/mcL (0.0-1.3); Monocytes % 5.3 %; Nucleated Red Blood Cells 0.1 /100 WBC (0); Platelet Count 289 K/mcL (140-400); Red Blood Count 3.99 M/mcL (3.82-4.97); Red Cell Distribution Width 13.8 % (11.5-14.5); Segmented Neutrophils % 74.1 %
[2018-11-15 15:31] LABS: BUN/Creatinine Ratio 16 (6-26); Blood Urea Nitrogen 7 mg/dL (6-20); Calcium 9.2 mg/dL (8.6-10.3); Carbon Dioxide 21 mEq/L (23-29); Chloride 105 mEq/L (98-107); Glucose 148 mg/dL (70-105); Magnesium 1.8 mg/dL (1.6-2.6); Osmolality,Calculated 281 (280-300); Phosphorous 3.4 mg/dL (2.7-4.5); Potassium 5.6 mEq/L (3.5-5.1); Sodium 135 mEq/L (136-145); eGFR For Non-African Americans > 60 (> 60)
[2018-11-15] MEDS: *HR* Heparin 5,000 UNIT/ML VIAL SQ SCH (16:54)
[2018-11-16] MEDS: MetroNIDAZOLE 500 MG/100 ML 500 MG/100 ML BAG IVPB SCH ×2 (00:19→09:03)
[2018-11-16] MEDS: Ondansetron 4 MG/2 ML VIAL IVP PRN (01:40)
[2018-11-16 04:39] LABS: Basophils # 0.2 K/mcL (0.0-0.2); Basophils % 0.8 %; Eosinophils # 1.4 K/mcL (0.0-0.6); Eosinophils % 6.9 %; Hematocrit 32.9 % (35.3-44.9); Hemoglobin 10.8 g/dL (11.5-15.4); Immature Granulocytes % 2.8 % (0-4); Lymphocytes # 3.1 K/mcL (0.6-4.6); Mean Corpuscular HGB Conc 32.8 g/dL (31.6-35.5); Mean Corpuscular Hemoglobin 28.3 pg (28.0-33.3); Mean Corpuscular Volume 86.1 fL (83.0-100.0); Mean Platelet Volume 9.8 fL (9.4-12.4); Monocytes # 1.2 K/mcL (0.0-1.3); Monocytes % 5.8 %; Neutrophils # 14.1 K/mcL (1.6-8.9); Platelet Count 410 K/mcL (140-400); Red Blood Count 3.82 M/mcL (3.82-4.97); Red Cell Distribution Width 13.9 % (11.5-14.5); Segmented Neutrophils % 68.7 %
[2018-11-16 05:13] LABS: BUN/Creatinine Ratio 13 (6-26); Blood Urea Nitrogen 5 mg/dL (6-20); Calcium 8.5 mg/dL (8.6-10.3); Carbon Dioxide 21 mEq/L (23-29); Chloride 105 mEq/L (98-107); Glucose 131 mg/dL (70-105); Magnesium 1.7 mg/dL (1.6-2.6); Osmolality,Calculated 277 (280-300); Phosphorous 3.8 mg/dL (2.7-4.5); Potassium 3.9 mEq/L (3.5-5.1); Sodium 134 mEq/L (136-145); eGFR For Non-African Americans > 60 (> 60)
[2018-11-16] MEDS: *HR* OxyCODONE Immed Rel 5 MG TABLET PO PRN (05:59)
[2018-11-16] MEDS: Piperacillin/Tazobactam 3.375 GM in 0.9 % Sodium Chloride Mini Bag 100 ML IVPB SCH (05:59)
[2018-11-16] MEDS: *HR* Heparin 5,000 UNIT/ML VIAL SQ SCH ×2 (06:38→18:32)
[2018-11-16] MEDS: Insulin LISPRO 300 UNITS/3 ML VIAL SQ SCH ×4 (07:59→21:02)
[2018-11-16] MEDS: Potassium Chloride Elixir 20 MEQ/15 ML UDC PO SCH (09:03)
[2018-11-16] MEDS: Pantoprazole 40 MG VIAL IVP SCH (09:04)
[2018-11-16] MEDS: Fluticasone Propionate Nasal 50 MCG/SPRAY BOTTLE NS SCH (09:07)
[2018-11-16] MEDS: 0.9 % Sodium Chloride 1,000 ML IVC SCH (09:07)
--- NOTE | 2018-11-16 12:59 | General Surgery Progress Note ---
Date of Encounter: 11/16/18 Time of Encounter: 12:52 Subjective Narrative: General Surgery - POD #8 Patient feeling well, voicing no complaints. She has remained afebrile since 11/14/18; pulse has diminished ranging 97-109 but still periodically tachycardic Respiratory rate 16, blood pressure 115/79- 126/90 SPO2 on room air 97% Lungs: Clear, no obvious pain on deep inspiration Abdomen: Soft, nontender. Patient denies any pain to vigorous palpation. No rebound Port sites intact, clean and dry Laboratories: Leukocytosis has improved slightly to 20.5, neutrophils 14.1; hemoglobin 10.8 with hematocrit 32.9. Platelet count 4 10,000. Electrolytes notable for sodium 134, bicarbonate 21; BUN 5, creatinine 0.4. Phosphorus and magnesium within normal limits, 3.8/1.7 respectively. Impression: Postoperative day #8, status post laparoscopic cholecystectomy with intraoperative cholangiogram for gallstone pancreatitis Leukocytosis and tachycardia with CT, 11/13/18, demonstrating persistent peripancreatic inflammation. (Improved from preop) Improved. Leukocytosis persists but is trending towards normal. Persistent tachycardia as high as 110 in the last 24 hours, of uncertain significance or etiology. Possibly due to pulmonary etiology such as atelectasis versus persistent pancreatic inflammation demonstrated on most recent CT Recommendations: Check amylase and lipase in the a.m. Repeat CBC in the a.m. if leukocytosi/neutrophilia continues to improve, can be discharged home. Objective Vital Signs - Last 8 Hours Temp Pulse Resp BP Pulse Ox 11/16/18 10:37 98.9 F 109 16 126/90 97 11/16/18 07:37 97.7 F 98 15 115/79 95 11/16/18 05:30 97.6 F 97 19 124/81 98 Intake and Output 11/15/18 11/16/18 11/16/18 23:59 07:59 15:59 Intake Total 1550 / 1550 200 / 200 1000 / 1000 Balance 1550 / 1550 200 / 200 1000 / 1000 Intake: IV Fluids 1200 / 1200 200 / 200 1000 / 1000 0.9 % Sodium Chloride 1,000 ML 1000 / 1000 1000 / 1000 @ 75 mls/hr IVC .[id number] [facility] Rx #:[id number] Flagyl Premix 500 MG/100 ML 500 100 / 100 100 / 100 mg In 100 ml @ 100 mls/hr IVPB Q8HR [facility] Rx#:[id number] Zosyn 3.375 GM In 0.9 % Sodium 100 / 100 100 / 100 Chloride (Mini-Bag +) 100 ML @ 25 mls/hr IVPB Q8H [facility] Rx#: [id number] Oral 350 / 350 Other: Stool Size Moderate Stool Consistency loose soft # Urine Diapers 1 0 1 Blood Glucose* 134 118 148 - Labs 11/16/18 04:18 11/16/18 04:18 Diabetes panel 11/15/18 11/16/18 Range/Units 14:53 04:18 Sodium 135 L 134 L (136-145) mEq/L Potassium 5.6 H 3.9 D (3.5-5.1) mEq/L Chloride 105 105 (98-107) mEq/L Carbon Dioxide 21 L 21 L (23-29) mEq/L BUN 7 5 L (6-20) mg/dL Creatinine 0.45 L 0.40 L (0.60-1.20) mg/dL Glucose 148 H 131 H (70-105) mg/dL Calcium 9.2 8.5 L (8.6-10.3) mg/dL Calcium panel 11/15/18 11/16/18 Range/Units 14:53 04:18 Calcium 9.2 8.5 L (8.6-10.3) mg/dL Phosphorus 3.4 3.8 (2.7-4.5) mg/dL Pituitary panel 11/15/18 11/16/18 Range/Units 14:53 04:18 Sodium 135 L 134 L (136-145) mEq/L Potassium 5.6 H 3.9 D (3.5-5.1) mEq/L Chloride 105 105 (98-107) mEq/L Carbon Dioxide 21 L 21 L (23-29) mEq/L BUN 7 5 L (6-20) mg/dL Creatinine 0.45 L 0.40 L (0.60-1.20) mg/dL Glucose 148 H 131 H (70-105) mg/dL Calcium 9.2 8.5 L (8.6-10.3) mg/dL Adrenal panel 11/15/18 11/16/18 Range/Units 14:53 04:18 Sodium 135 L 134 L (136-145) mEq/L Potassium 5.6 H 3.9 D (3.5-5.1) mEq/L Chloride 105 105 (98-107) mEq/L Carbon Dioxide 21 L 21 L (23-29) mEq/L BUN 7 5 L (6-20) mg/dL Creatinine 0.45 L 0.40 L (0.60-1.20) mg/dL Glucose 148 H 131 H (70-105) mg/dL Calcium 9.2 8.5 L (8.6-10.3) mg/dL Consult Discharge Plan - Plan Instructions: Cholecystitis (DC), Laparoscopic Cholecystectomy (DC) Additional Instructions: 1. Please follow up with general surgery (Dr. Reid) on 11/16/2018. Please obtain the prescribed lab work prior to your appointment with Dr. Reid. 2. Please follow up with your primary care physician within 5 days after your discharge from the hospital 3. Please follow up with gastroenterology within 1-2 weeks after your discharge from the hospital 4. Please seek medical help immediately if you have difficulty breathing, abdominal pain, nausea, or vomiting. Referrals: Annalee Carbajal MD [Primary Care Provider] - Fransico Aden MD [Partnered Physician] - 11/20/18 11:00 am (Follow up after hospital discharge.) Prescriptions: Acetaminophen [Tylenol] 650 mg PO Q6H PRN #20 tablet PRN Reason: pain or fever greater than 101 Ondansetron ODT [Zofran ODT] 4 mg SL Q6H #20 tab.bartdis
--- NOTE | 2018-11-16 14:26 | Internal Med Progress Note ---
Hospitalist Progress Note - Encounter Date of Encounter: 11/16/18 Time of Encounter: 09:20 - Subjective Interval History: Patient lying down in bed. Tolerating diet well. Denies any new complaints at this time. She has not had fevers overnight but she continues to be tachycardic. Complains of mild abdominal cramps. - Exam Vitals: Temp Pulse Resp BP Pulse Ox 98.9 F 109 16 126/90 97 11/16/18 10:37 11/16/18 10:37 11/16/18 10:37 11/16/18 10:37 11/16/18 10:37 Exam: General: Patient is alert, no acute distress, oriented x 3 ENT: Mucous membranes moist Respiratory: Good respiratory effort. Normal breath sounds. No wheezing or crackles. Cardiovascular: Regular rate and rhythm. s1 and s2 normal No clicks, rubs, gallops, or murmurs. No pedal edema Abdomen: Abdomen is soft, tenderness at surgical site. Bowel sounds are present Musculoskeletal: Spontaneously moving all extremities Skin: warm, dry, intact. Neuro: Alert oriented x 3 normal cranial nerves, no focal deficits - Assessment and Plan (1) Acute pancreatitis Current Visit: Yes Status: Acute Assessment and Plan: s/p post laparoscopic cholecystectomy. No new episodes of fever. WBC count is trending down. Surgery following. Plan to do repeat checks on lipase and amylase tomorrow. (2) Cholecystitis with cholelithiasis Current Visit: Yes Status: Acute Assessment and Plan: Status post cholecystectomy and intraoperative cholangiogram followed by ERCP. Clinically patient appears to be recovering. Has not had fevers in the past 24 hours. We will continue to follow along with surgery. (3) DVT prophylaxis Current Visit: Yes Status: Acute Assessment and Plan: On subcutaneous heparin (4) Hyperglycemia Current Visit: Yes Status: Acute Assessment and Plan: Prediabetic per A1c level. Continue to monitor blood sugars and continue sliding scale insulin. (5) Sepsis Current Visit: Yes Status: Resolved Assessment and Plan: WBC count trending down. No new episodes of fevers. Zosyn stopped today by surgery. (6) Metabolic acidosis Current Visit: Yes Status: Resolved (7) Electrolyte abnormality Current Visit: Yes Status: Resolved Assessment and Plan: Mild hyponatremia. Stable. - Time Spent with Patient Total time spent is greater than 50% in coordination of care (as documented) at patient's floor/unit and/or counseling patient: Internal Medicine: Result - Labs CBC & Chem 7: 11/16/18 04:18 11/16/18 04:18 Labs: Short CBC 11/16/18 Range/Units 04:18 WBC 20.5 H (4.3-11.1) K/mcL Hgb 10.8 L (11.5-15.4) g/dL Hct 32.9 L (35.3-44.9) % Plt Count 410 H (140-400) K/mcL Neutrophils # 14.1 H (1.6-8.9) K/mcL BMP 11/15/18 11/16/18 14:53 04:18 Sodium 135 L 134 L Potassium 5.6 H 3.9 D Chloride 105 105 Carbon Dioxide 21 L 21 L BUN 7 5 L Creatinine 0.45 L 0.40 L Glucose 148 H 131 H Calcium 9.2 8.5 L Consult Discharge Plan - Plan Instructions: Cholecystitis (DC), Laparoscopic Cholecystectomy (DC) Additional Instructions: 1. Please follow up with general surgery (Dr. Reid) on 11/16/2018. Please obtain the prescribed lab work prior to your appointment with Dr. Reid. 2. Please follow up with your primary care physician within 5 days after your discharge from the hospital 3. Please follow up with gastroenterology within 1-2 weeks after your discharge from the hospital 4. Please seek medical help immediately if you have difficulty breathing, abdominal pain, nausea, or vomiting. Referrals: Annalee Carbajal MD [Primary Care Provider] - Fransico Aden MD [Partnered Physician] - 11/20/18 11:00 am (Follow up after hospital discharge.) Prescriptions: Acetaminophen [Tylenol] 650 mg PO Q6H PRN #20 tablet PRN Reason: pain or fever greater than 101 Ondansetron ODT [Zofran ODT] 4 mg SL Q6H #20 tab.rapdis (1) Acute pancreatitis Qualifiers: Pancreatitis type: biliary Acute pancreatitis complication: no infection or necrosis Qualified Code(s): K85.10 - Biliary acute pancreatitis without necrosis or infection (2) Cholecystitis with cholelithiasis Qualifiers: Cholelithiasis location: bile duct Cholecystitis acuity: acute and chronic Biliary obstruction: without biliary obstruction Qualified Code(s): K80.46 - Calculus of bile duct with acute and chronic cholecystitis without obstruction (5) Sepsis Qualifiers: Sepsis type: sepsis due to unspecified organism Qualified Code(s): A41.9 - Sepsis, unspecified organism
[2018-11-16] MEDS: Acetaminophen 325 MG TABLET PO PRN (20:24)
[2018-11-17 04:56] LABS: Hematocrit 37.9 % (35.3-44.9); Hemoglobin 12.2 g/dL (11.5-15.4); Mean Corpuscular HGB Conc 32.2 g/dL (31.6-35.5); Mean Corpuscular Hemoglobin 28.1 pg (28.0-33.3); Mean Corpuscular Volume 87.3 fL (83.0-100.0); Red Blood Count 4.34 M/mcL (3.82-4.97); Red Cell Distribution Width 13.6 % (11.5-14.5)
[2018-11-17 04:57] LABS: Basophils # 0.1 K/mcL (0.0-0.2); Basophils % 0.7 %; Eosinophils # 1.3 K/mcL (0.0-0.6); Eosinophils % 6.6 %; Immature Granulocytes % 3.6 % (0-4); Lymphocytes # 3.6 K/mcL (0.6-4.6); Lymphocytes % 18.2 %; Mean Platelet Volume 10.6 fL (9.4-12.4); Monocytes # 1.4 K/mcL (0.0-1.3); Monocytes % 6.9 %; Neutrophils # 12.5 K/mcL (1.6-8.9); Platelet Count 425 K/mcL (140-400)
[2018-11-17 05:15] LABS: Amylase 54 Units/L (29-103); Lipase 68 Units/L (11-82)
[2018-11-17] MEDS: *HR* Heparin 5,000 UNIT/ML VIAL SQ SCH (05:32)
[2018-11-17] MEDS: Insulin LISPRO 300 UNITS/3 ML VIAL SQ SCH ×2 (07:47→11:26)
[2018-11-17] MEDS: Potassium Chloride Elixir 20 MEQ/15 ML UDC PO SCH (08:59)
[2018-11-17] MEDS: Fluticasone Propionate Nasal 50 MCG/SPRAY BOTTLE NS SCH (08:59)
[2018-11-17] MEDS: Acetaminophen 325 MG TABLET PO PRN (10:32)
[2018-11-17 10:35] VITALS: BP 123/82
--- NOTE | 2018-11-17 11:52 | General Surgery Progress Note ---
Date of Encounter: 11/17/18 Time of Encounter: 11:43 Subjective Narrative: General Surgery - POD #9 Patient feeling well, voicing no complaints; patient admits to mild crampy abdominal pain but her brother indicates that it is usual at the time of menstruation for her to experience some crampy abdominal pain. The patient remains afebrile, maximum temperature 99.0. Heart rate appears stable, maximum heart rate 102 overnight and today Lungs: Clear Abdomen: Soft, nontender. No obvious intra-abdominal masses. Port sites intact clean and dry. Laboratories: WBC continues to trend towards normal, currently 19.5, neutrophils also improved to 12.5. Hemoglobin 12.2 and hematocrit 37.9; platelet count 425,000. Impression: Gallstone pancreatitis, postoperative day #9, status post laparoscopic cholecystectomy with intraoperative cholangiogram. ERCP with pancreatic duct stenting, 11/10/18. Pancreatitis resolved Persistent tachycardia of unknown or uncertain etiology Leukocytosis slowly resolving no recurrent fever Recommendations: May be discharged home with considered medically stable If discharged home, repeat labs 11/20/18 with surgical follow-up 11/23/18. Copy of labs to be forwarded to my office. Regular diet Activity as tolerated Patient may shower, wash incisions with soap and water Follow-up with [place] gastro[facility] as previously instructed. Objective Vital Signs - Last 8 Hours Temp Pulse Resp BP Pulse Ox 11/17/18 10:33 99.0 F 102 15 123/82 98 11/17/18 07:30 98.7 F 100 16 116/88 94 11/17/18 04:57 97.6 F 67 19 115/87 97 Intake and Output 11/16/18 11/17/18 11/17/18 23:59 07:59 15:59 Intake Total 500 / 500 120 / 120 Output Total 0 / 0 Balance 500 / 500 120 / 120 Intake: Oral 500 / 500 120 / 120 Output: Urine 0 / 0 Other: Meal Breakfast Percent of Meal Consumed 25% Stool Size Moderate Moderate Stool Consistency soft soft Stool Characteristics Normal for Patient Stool Color Brown Brown # Urine Diapers 1 1 1 # Bowel Movement Diapers 1 1 Blood Glucose* 118 126 147 - Labs 11/17/18 04:09 11/16/18 04:18 Consult Discharge Plan - Plan Instructions: Cholecystitis (DC), Laparoscopic Cholecystectomy (DC) Additional Instructions: 1. Please follow up with general surgery (Dr. Reid) on 11/16/2018. Please obtain the prescribed lab work prior to your appointment with Dr. Reid. 2. Please follow up with your primary care physician within 5 days after your discharge from the hospital 3. Please follow up with gastroenterology within 1-2 weeks after your discharge from the hospital 4. Please seek medical help immediately if you have difficulty breathing, abdominal pain, nausea, or vomiting. Referrals: Annalee Carbajal MD [Primary Care Provider] - Fransico Aden MD [Partnered Physician] - 11/20/18 11:00 am (Follow up after hospital discharge.) Prescriptions: Acetaminophen [Tylenol] 650 mg PO Q6H PRN #20 tablet PRN Reason: pain or fever greater than 101 Ondansetron ODT [Zofran ODT] 4 mg SL Q6H #20 tab.rapdis
--- NOTE | 2018-11-17 12:25 | Internal Med Progress Note ---
Hospitalist Progress Note - Encounter Date of Encounter: 11/17/18 Time of Encounter: 12:22 - Subjective Interval History: Patient continued to do well. Has mild cramping pain in her abdomen. Tolerating diet well. No fever overnight. MAXIMUM TEMPERATURE 99 earlier today. No nausea or vomiting. - Exam Vitals: Temp Pulse Resp BP Pulse Ox 99.0 F 102 15 123/82 98 11/17/18 10:33 11/17/18 10:33 11/17/18 10:33 11/17/18 10:33 11/17/18 10:33 Exam: General: Patient is alert, obese no acute distress, oriented x 3 ENT: Mucous membranes moist Respiratory: Good respiratory effort. Normal breath sounds. No wheezing or crackles. Cardiovascular: Regular rate and rhythm. s1 and s2 normal No clicks, rubs, gallops, or murmurs. No pedal edema Abdomen: Abdomen is soft, mild tenderness at surgical site. Bowel sounds are present Musculoskeletal: Spontaneously moving all extremities Skin: warm, dry, intact. - Assessment and Plan (1) Cholecystitis with cholelithiasis Current Visit: Yes Status: Acute Assessment and Plan: Completed antibiotic therapy. WBC count is trending down. No further indication for antibiotics. Has been cleared for discharge from a surgical standpoint. We will discharge patient today. (2) Acute pancreatitis Current Visit: Yes Status: Resolved Assessment and Plan: Status post cholecystectomy, ERCP. Pancreatitis has resolved. (3) Hyperglycemia Current Visit: Yes Status: Acute Assessment and Plan: Impaired glucose tolerance./Prediabetes. Will place patient on diabetic diet. Consider starting metformin as outpatient (4) Sepsis Current Visit: Yes Status: Resolved Assessment and Plan: blood cultures negative. Most likely from cholecystitis and choledocholithiasis (5) Metabolic acidosis Current Visit: Yes Status: Resolved (6) Electrolyte abnormality Current Visit: Yes Status: Resolved (7) DVT prophylaxis Current Visit: Yes Status: Acute Assessment and Plan: On subcutaneous heparin - Time Spent with Patient Total time spent is greater than 50% in coordination of care (as documented) at patient's floor/unit and/or counseling patient: Internal Medicine: Result - Labs CBC & Chem 7: 11/17/18 04:09 11/16/18 04:18 Labs: Short CBC 11/17/18 Range/Units 04:09 WBC 19.5 H (4.3-11.1) K/mcL Hgb 12.2 (11.5-15.4) g/dL Hct 37.9 (35.3-44.9) % Plt Count 425 H (140-400) K/mcL Neutrophils # 12.5 H (1.6-8.9) K/mcL Consult Discharge Plan - Plan Instructions: Cholecystitis (DC), Laparoscopic Cholecystectomy (DC) Additional Instructions: 1. Please follow up with general surgery (Dr. Reid) on 11/16/2018. Please obtain the prescribed lab work prior to your appointment with Dr. Reid. 2. Please follow up with your primary care physician within 5 days after your discharge from the hospital 3. Please follow up with gastroenterology within 1-2 weeks after your discharge from the hospital 4. Please seek medical help immediately if you have difficulty breathing, abdominal pain, nausea, or vomiting. Referrals: Annalee Carbajal MD [Primary Care Provider] - Fransico Aden MD [Partnered Physician] - 11/20/18 11:00 am (Follow up after hospital discharge.) Prescriptions: Acetaminophen [Tylenol] 650 mg PO Q6H PRN #20 tablet PRN Reason: pain or fever greater than 101 Ondansetron ODT [Zofran ODT] 4 mg SL Q6H #20 tab.rapdis (1) Cholecystitis with cholelithiasis Qualifiers: Cholelithiasis location: bile duct Cholecystitis acuity: acute and chronic Biliary obstruction: without biliary obstruction Qualified Code(s): K80.46 - Calculus of bile duct with acute and chronic cholecystitis without obstruction (2) Acute pancreatitis Qualifiers: Pancreatitis type: biliary Acute pancreatitis complication: no infection or necrosis Qualified Code(s): K85.10 - Biliary acute pancreatitis without necrosis or infection (4) Sepsis Qualifiers: Sepsis type: sepsis due to unspecified organism Qualified Code(s): A41.9 - Sepsis, unspecified organism
== END 2018-11-17 14:36 | disposition home or self-care (01) | DRG 710 ==
LOC: EMEROOARM 10:06 → 3ANU 10:06 → SUATTDRO 17:13
PROVIDERS: ADMIT Internal Medicine; ATTEND Internal Medicine

== ENCOUNTER 2019-04-07 23:53 | Observation (INO) ==
[2019-04-08] MEDS ORDERED: 0.9 % Sodium Chloride 1,000 ML IVC ONE ×2 (00:02→02:56)
[2019-04-08] MEDS ORDERED: *HR* Promethazine 25 MG/ML VIAL IVP ONE (00:02)
[2019-04-08] MEDS ORDERED: Ketorolac 30 MG/ML VIAL IVP ONE (00:02)
[2019-04-08 00:40] LABS: Bilirubin,Urine Negative (Negative); Blood,Urine Negative (Negative); Clarity,Urine Clear (Clear); Color,Urine Yellow (Yellow); Glucose,Urine (UA) Normal (Normal); Ketones,Urine Negative (Negative); Leukocyte Esterase,Urine Negative (Negative); Nitrite,Urine Negative (Negative); PH,Urine 6.5 pH Units (5.0-8.0); Protein,Urine Negative (Neg-Trace); Specific Gravity,Urine 1.023 (1.010-1.025); Urobilinogen,Urine Normal (Normal)
[2019-04-08 00:44] LABS: Basophils # 0.1 K/mcL (0.0-0.2); Basophils % 0.5 %; Eosinophils # 0.1 K/mcL (0.0-0.6); Eosinophils % 0.5 %; Hemoglobin 12.4 g/dL (11.5-15.4); Immature Granulocytes % 0.4 % (0-4); Lymphocytes % 7.2 %; Mean Corpuscular HGB Conc 33.5 g/dL (31.6-35.5); Mean Corpuscular Hemoglobin 27.9 pg (28.0-33.3); Mean Corpuscular Volume 83.1 fL (83.0-100.0); Mean Platelet Volume 10.7 fL (9.4-12.4); Monocytes # 0.7 K/mcL (0.0-1.3); Monocytes % 4.7 %; Neutrophils # 12.4 K/mcL (1.6-8.9); Platelet Count 302 K/mcL (140-400); Red Blood Count 4.45 M/mcL (3.82-4.97); Segmented Neutrophils % 86.7 %; White Blood Count 14.3 K/mcL (4.3-11.1)
[2019-04-08] MEDS ORDERED: Acetaminophen 325 MG TABLET PO ONE (00:44)
[2019-04-08 00:58] LABS: Alanine Aminotransferase 24 Units/L (7-52); Albumin/Globulin Ratio 1.2 (1.1-2.2); Alkaline Phosphatase 175 Units/L (34-104); Aspartate Amino Transferase 27 Units/L (13-39); BUN/Creatinine Ratio 20 (6-26); Bilirubin,Direct 0.1 mg/dL (0.0-0.2); Bilirubin,Indirect 0.3 mg/dL (0.0-1.2); Bilirubin,Total 0.4 mg/dL (0.3-1.0); Blood Urea Nitrogen 13 mg/dL (6-20); Calcium 8.8 mg/dL (8.6-10.3); Carbon Dioxide 21 mEq/L (23-29); Chloride 102 mEq/L (98-107); Globulin 3.3 g/dL (2.4-3.5); Glucose 132 mg/dL (70-105); Lipase 11 Units/L (11-82); Osmolality,Calculated 278 (280-300); Potassium 3.4 mEq/L (3.5-5.1); Sodium 133 mEq/L (136-145); Total Protein 7.3 g/dL (6.4-8.9); eGFR For African Americans > 60 (> 60); eGFR For Non-African Americans > 60 (> 60)
[2019-04-08] MEDS ORDERED: Isovue-370 500 ML BOTTLE IVP ONE (01:12)
[2019-04-08] MEDS ORDERED: Ibuprofen 600 MG TABLET PO ONE (03:04)
[2019-04-08] MEDS ORDERED: MetroNIDAZOLE 500 MG/100 ML 500 MG/100 ML BAG IVPB ONE (03:10)
[2019-04-08] MEDS ORDERED: *HR* Promethazine 25 MG/ML VIAL IVP PRN (07:54)
[2019-04-08] MEDS ORDERED: Acetaminophen 325 MG TABLET PO PRN (07:54)
[2019-04-08] MEDS ORDERED: Naloxone 0.4 MG/ML INJ IVP PRN (07:54)
[2019-04-08] MEDS ORDERED: Ondansetron 4 MG/2 ML VIAL IVP PRN (07:54)
[2019-04-08] MEDS ORDERED: Mag Hydrox/Al Hydrox/Simeth 30 ML UDC PO PRN (07:54)
[2019-04-08] MEDS ORDERED: Ringers Solution, Lactated 2,000 ML IVC SCH (08:00)
[2019-04-08] MEDS: Piperacillin/Tazobactam 3.375 GM in 0.9 % Sodium Chloride Mini Bag 100 ML IVPB SCH ×3 (10:13→23:18)
[2019-04-08] MEDS ORDERED: Ringers Solution, Lactated 1,000 ML IVC SCH (13:30)
[2019-04-09 04:32] LABS: Basophils # 0.1 K/mcL (0.0-0.2); Basophils % 0.6 %; Eosinophils # 0.2 K/mcL (0.0-0.6); Eosinophils % 1.6 %; Hematocrit 33.2 % (35.3-44.9); Immature Granulocytes % 0.4 % (0-4); Lymphocytes # 1.7 K/mcL (0.6-4.6); Mean Corpuscular HGB Conc 33.1 g/dL (31.6-35.5); Mean Corpuscular Hemoglobin 28.1 pg (28.0-33.3); Mean Corpuscular Volume 84.9 fL (83.0-100.0); Mean Platelet Volume 11.7 fL (9.4-12.4); Monocytes % 9.2 %; Platelet Count 212 K/mcL (140-400); Red Blood Count 3.91 M/mcL (3.82-4.97); Red Cell Distribution Width 13.4 % (11.5-14.5); Segmented Neutrophils % 73.2 %
[2019-04-09 05:01] LABS: BUN/Creatinine Ratio 12 (6-26); Blood Urea Nitrogen 6 mg/dL (6-20); Calcium 8.4 mg/dL (8.6-10.3); Carbon Dioxide 19 mEq/L (23-29); Chloride 107 mEq/L (98-107); Glucose 114 mg/dL (70-105); Osmolality,Calculated 282 (280-300); Potassium 3.5 mEq/L (3.5-5.1); Sodium 137 mEq/L (136-145); eGFR For African Americans > 60 (> 60); eGFR For Non-African Americans > 60 (> 60)
[2019-04-09] MEDS: Piperacillin/Tazobactam 3.375 GM in 0.9 % Sodium Chloride Mini Bag 100 ML IVPB SCH (08:31)
[2019-04-09 11:07] VITALS: BP 133/83
== END 2019-04-09 13:21 | disposition home or self-care (01) ==
LOC: EMEROOARM 23:53 → 3BNU 23:53
PROVIDERS: ADMIT Pediatrics; ATTEND Pediatrics

== ENCOUNTER 2019-08-07 17:43 | Observation (INO) ==
[2019-08-07] MEDS ORDERED: Isovue-370 500 ML BOTTLE IVP ONE (17:54)
[2019-08-07] MEDS ORDERED: Ondansetron 4 MG/2 ML VIAL IVP ONE (17:56)
[2019-08-07] MEDS: 0.9 % Sodium Chloride 1,000 ML IVC SCH ×2 (18:23→21:13)
[2019-08-07 18:32] LABS: ABG Base Excess -3 mEq/L (-2 to 3); ABG HCO3 20 mEq/L (21-27); ABG Oxygen Saturation 98 % (95-98); ABG PCO2 31 mmHg (35-45); ABG PH 7.42 pH Units (7.32-7.45); ABG PO2 93 mmHg (85-104); ABG TCO2 21 mEq/L (20-26)
[2019-08-07 18:34] LABS: Basophils # 0.1 K/mcL (0.0-0.2); Basophils % 0.5 %; Eosinophils # 0.1 K/mcL (0.0-0.6); Eosinophils % 0.5 %; Hematocrit 40.1 % (35.3-44.9); Hemoglobin 13.6 g/dL (11.5-15.4); Immature Granulocytes % 0.3 % (0-4); Lymphocytes # 1.5 K/mcL (0.6-4.6); Lymphocytes % 11.4 %; Mean Corpuscular HGB Conc 33.9 g/dL (31.6-35.5); Mean Corpuscular Hemoglobin 27.8 pg (28.0-33.3); Mean Corpuscular Volume 81.8 fL (83.0-100.0); Mean Platelet Volume 10.2 fL (9.4-12.4); Monocytes # 0.7 K/mcL (0.0-1.3); Platelet Count 382 K/mcL (140-400); Red Cell Distribution Width 12.7 % (11.5-14.5); Segmented Neutrophils % 82.3 %; White Blood Count 13.3 K/mcL (4.3-11.1)
[2019-08-07 18:46] LABS: Bilirubin,Urine Negative (Negative); Blood,Urine Small (Negative); Clarity,Urine Clear (Clear); Color,Urine Yellow (Yellow); Glucose,Urine (UA) Normal (Normal); Ketones,Urine Negative (Negative); Leukocyte Esterase,Urine Negative (Negative); Nitrite,Urine Negative (Negative); PH,Urine 5.5 pH Units (5.0-8.0); Protein,Urine 100 mg/dL (Neg-Trace); Specific Gravity,Urine 1.029 (1.010-1.025); Urobilinogen,Urine Normal (Normal)
[2019-08-07 18:47] LABS: Squamous Epithelial Cell,Urine Many per lpf (None-Few)
[2019-08-07 18:53] LABS: Albumin 3.8 g/dL (3.5-5.7); Bilirubin,Direct 0.1 mg/dL (0.0-0.2); Bilirubin,Indirect 0.3 mg/dL (0.0-1.0); Bilirubin,Total 0.4 mg/dL (0.3-1.0); Globulin 3.9 g/dL (2.4-3.5); Magnesium 1.8 mg/dL (1.6-2.6); Total Protein 7.7 g/dL (6.4-8.9)
[2019-08-07 18:54] LABS: Alanine Aminotransferase 9 Units/L (7-52); Albumin 3.9 g/dL (3.5-5.7); Albumin/Globulin Ratio 1.1 (1.1-2.2); Alkaline Phosphatase 93 Units/L (34-104); Aspartate Amino Transferase 13 Units/L (13-39); BUN/Creatinine Ratio 24 (6-26); Bilirubin,Total 0.4 mg/dL (0.3-1.0); Blood Urea Nitrogen 12 mg/dL (6-20); Calcium 9.1 mg/dL (8.6-10.3); Carbon Dioxide 18 mEq/L (23-29); Chloride 107 mEq/L (98-107); Globulin 3.7 g/dL (2.4-3.5); Glucose 127 mg/dL (70-105); Osmolality,Calculated 283 (280-300); Potassium 3.4 mEq/L (3.5-5.1); Sodium 136 mEq/L (136-145); Total Protein 7.6 g/dL (6.4-8.9); eGFR For African Americans > 60 (> 60); eGFR For Non-African Americans > 60 (> 60)
[2019-08-07 19:02] LABS: Bacteria,Urine Moderate per hpf (None-Few); Mucus,Urine Moderate per lpf (Few)
[2019-08-07] MEDS ORDERED: *HR* Promethazine 25 MG/ML VIAL IVP ONE (19:25)
[2019-08-07] MEDS ORDERED: cefTRIAXone 1,000 MG in Water for inj. (sterile) 10 ML IVP ONE (22:14)
[2019-08-08] MEDS ORDERED: Naloxone 0.4 MG/ML INJ IVP PRN (01:41)
[2019-08-08] MEDS ORDERED: 0.9 % Sodium Chloride 1,000 ML IVC SCH (01:45)
[2019-08-08 06:01] LABS: Basophils # 0.1 K/mcL (0.0-0.2); Basophils % 0.7 %; Eosinophils # 0.1 K/mcL (0.0-0.6); Eosinophils % 1.3 %; Hematocrit 36.1 % (35.3-44.9); Hemoglobin 12.1 g/dL (11.5-15.4); Immature Granulocytes % 0.6 % (0-4); Lymphocytes # 1.8 K/mcL (0.6-4.6); Lymphocytes % 21.8 %; Mean Corpuscular HGB Conc 33.5 g/dL (31.6-35.5); Mean Corpuscular Hemoglobin 27.6 pg (28.0-33.3); Mean Corpuscular Volume 82.4 fL (83.0-100.0); Mean Platelet Volume 11.3 fL (9.4-12.4); Monocytes # 0.8 K/mcL (0.0-1.3); Neutrophils # 5.6 K/mcL (1.6-8.9); Platelet Count 268 K/mcL (140-400); Red Blood Count 4.38 M/mcL (3.82-4.97); Segmented Neutrophils % 66.6 %; White Blood Count 8.3 K/mcL (4.3-11.1)
[2019-08-08] MEDS: *HR* Heparin 5,000 UNIT/ML VIAL SQ SCH ×3 (06:37→21:20)
[2019-08-08 06:41] LABS: Alanine Aminotransferase 8 Units/L (7-52); Alkaline Phosphatase 72 Units/L (34-104); Aspartate Amino Transferase 16 Units/L (13-39); BUN/Creatinine Ratio 16 (6-26); Bilirubin,Total 0.4 mg/dL (0.3-1.0); Blood Urea Nitrogen 7 mg/dL (6-20); Calcium 8.4 mg/dL (8.6-10.3); Carbon Dioxide 19 mEq/L (23-29); Chloride 113 mEq/L (98-107); Globulin 3.1 g/dL (2.4-3.5); Glucose 95 mg/dL (70-105); Osmolality,Calculated 290 (280-300); Potassium 3.9 mEq/L (3.5-5.1); Sodium 141 mEq/L (136-145); Total Protein 6.1 g/dL (6.4-8.9); eGFR For African Americans > 60 (> 60); eGFR For Non-African Americans > 60 (> 60)
[2019-08-08] MEDS: Fluticasone Propionate Nasal 50 MCG/SPRAY BOTTLE NS SCH ×2 (08:30→21:20)
[2019-08-08] MEDS ORDERED: Fluticasone Propionate Nasal 50 MCG/SPRAY BOTTLE NS SCH (09:00)
[2019-08-08 09:02] LABS: Adenovirus F 40/41 PCR Not detected (Not detect); Astrovirus PCR Not detected (Not detect); C.difficile Toxin A/B Gene PCR Not detected (Not detect); Campylobacter by PCR Not detected (Not detect); Cryptosporidium by PCR Not detected (Not detect); Cyclospora cayetanensis PCR Not detected (Not detect); E. coli O157 by PCR Not detected (Not detect); Entamoeba histolytica PCR Not detected (Not detect); Enteroaggregative E.coli(EAEC) Not detected (Not detect); Enteropathogenic E.coli(EPEC) Not detected (Not detect); Enterotoxigenic E.coli (ETEC) Not detected (Not detect); Giardia lamblia PCR Not detected (Not detect); Norovirus GI/GII PCR DETECTED (Not detect); Plesiomonas shigelloides PCR Not detected (Not detect); Rotavirus A PCR Not detected (Not detect); Salmonella PCR Not detected (Not detect); Sapovirus PCR Not detected (Not detect); Shig/EnteroinvasiveE coli EIEC Not detected (Not detect); Shigalike tox-prod E coli STEC Not detected (Not detect); Vibrio PCR Not detected (Not detect); Vibrio cholerae PCR Not detected (Not detect); Yersinia enterocolitica PCR Not detected (Not detect)
[2019-08-08 23:54] LABS: Acinetobacter baumannii by PCR Not Detected (Not Detect); Candida albicans by PCR Not Detected (Not Detect); Candida glabrata by PCR Not Detected (Not Detect); Candida krusei by PCR Not Detected (Not Detect); Candida parapsilosis by PCR Not Detected (Not Detect); Candida tropicalis by PCR Not Detected (Not Detect); Enterobacter cloacae Cmplx PCR Not Detected (Not Detect); Enterobacteriaceae by PCR Not Detected (Not Detect); Enterococcus by PCR Not Detected (Not Detect); Escherichia coli by PCR Not Detected (Not Detect); Klebsiella oxytoca by PCR Not Detected (Not Detect); Klebsiella pneumoniae by PCR Not Detected (Not Detect); Proteus by PCR Not Detected (Not Detect); Pseudomonas aeruginosa by PCR Not Detected (Not Detect); Serratia marcescens by PCR Not Detected (Not Detect); Staphylococcus aureus by PCR Not Detected (Not Detect); Staphylococcus by PCR DETECTED (Not Detect); Streptococcus agalactiae(B)PCR Not Detected (Not Detect); Streptococcus by PCR Not Detected (Not Detect); Streptococcus pneumoniae PCR Not Detected (Not Detect); Streptococcus pyogenes (A) PCR Not Detected (Not Detect); mecA Methicillin-Resist Gene DETECTED (Not Detect)
[2019-08-09] MEDS ORDERED: cefTRIAXone 1,000 MG in 0.9 % Sodium Chloride Mini Bag 100 ML IVPB SCH (01:00)
[2019-08-09 05:37] LABS: Basophils # 0.1 K/mcL (0.0-0.2); Basophils % 1.4 %; Eosinophils # 0.2 K/mcL (0.0-0.6); Eosinophils % 3.4 %; Hematocrit 34.4 % (35.3-44.9); Hemoglobin 11.8 g/dL (11.5-15.4); Immature Granulocytes % 4.2 % (0-4); Lymphocytes # 2.4 K/mcL (0.6-4.6); Lymphocytes % 39.9 %; Mean Corpuscular HGB Conc 34.3 g/dL (31.6-35.5); Mean Corpuscular Hemoglobin 28.4 pg (28.0-33.3); Mean Corpuscular Volume 82.7 fL (83.0-100.0); Mean Platelet Volume 11.6 fL (9.4-12.4); Monocytes # 0.7 K/mcL (0.0-1.3); Monocytes % 12.2 %; Neutrophils # 2.3 K/mcL (1.6-8.9); Nucleated Red Blood Cells 0.7 /100 WBC (0); Platelet Count 206 K/mcL (140-400); Red Blood Count 4.16 M/mcL (3.82-4.97); Segmented Neutrophils % 38.9 %; White Blood Count 5.9 K/mcL (4.3-11.1)
[2019-08-09] MEDS: *HR* Heparin 5,000 UNIT/ML VIAL SQ SCH ×2 (05:37→15:53)
[2019-08-09] MEDS: Calcium Gluconate 1gm/50mL 1 GM/50 ML BAG IVPB SCH ×2 (05:37→06:10)
[2019-08-09] MEDS: Fluticasone Propionate Nasal 50 MCG/SPRAY BOTTLE NS SCH (08:52)
[2019-08-09 10:22] LABS: BUN/Creatinine Ratio 8 (6-26); Blood Urea Nitrogen 4 mg/dL (6-20); Calcium 8.5 mg/dL (8.6-10.3); Carbon Dioxide 20 mEq/L (23-29); Chloride 109 mEq/L (98-107); Glucose 114 mg/dL (70-105); Magnesium 1.6 mg/dL (1.6-2.6); Osmolality,Calculated 280 (280-300); Phosphorous 2.9 mg/dL (2.7-4.5); Potassium 3.7 mEq/L (3.5-5.1); Sodium 136 mEq/L (136-145); eGFR For African Americans > 60 (> 60); eGFR For Non-African Americans > 60 (> 60)
[2019-08-09 15:16] VITALS: BP 112/74
== END 2019-08-09 17:29 | disposition home or self-care (01) ==
LOC: EMEROOARM 17:43 → 2ANU 17:43
PROVIDERS: ADMIT Internal Medicine; ATTEND Internal Medicine

== ENCOUNTER 2020-03-04 19:43 | Observation (INO) ==
[2020-03-04] MEDS ORDERED: Isovue-370 500 ML BOTTLE IVP ONE (20:00)
[2020-03-04 20:19] LABS: Basophils # 0.1 K/mcL (0.0-0.2); Eosinophils # 0.5 K/mcL (0.0-0.6); Eosinophils % 4.5 %; Hematocrit 38.1 % (35.3-44.9); Hemoglobin 12.5 g/dL (11.5-15.4); Immature Granulocytes % 0.2 % (0-4); Lymphocytes # 3.4 K/mcL (0.6-4.6); Lymphocytes % 32.5 %; Mean Corpuscular HGB Conc 32.8 g/dL (31.6-35.5); Mean Corpuscular Hemoglobin 28.2 pg (28.0-33.3); Mean Platelet Volume 10.4 fL (9.4-12.4); Monocytes # 0.7 K/mcL (0.0-1.3); Monocytes % 6.9 %; Neutrophils # 5.8 K/mcL (1.6-8.9); Platelet Count 319 K/mcL (140-400); Red Blood Count 4.43 M/mcL (3.82-4.97); Red Cell Distribution Width 12.6 % (11.5-14.5); Segmented Neutrophils % 54.9 %; White Blood Count 10.5 K/mcL (4.3-11.1)
[2020-03-04 20:23] LABS: Bacteria,Urine Few per hpf (None-Few); Bilirubin,Urine Negative (Negative); Blood,Urine Moderate (Negative); Clarity,Urine Clear (Clear); Color,Urine Colorless (Yellow); Glucose,Urine (UA) Normal (Normal); Ketones,Urine Negative (Negative); Leukocyte Esterase,Urine Negative (Negative); Nitrite,Urine Negative (Negative); PH,Urine 6.5 pH Units (5.0-8.0); Protein,Urine Negative (Neg-Trace); RBC,Urine TNTC per hpf (0-3); Urobilinogen,Urine Normal (Normal); WBC,Urine 0-3 per hpf (0-3)
[2020-03-04 20:37] LABS: Alanine Aminotransferase 10 Units/L (7-52); Albumin 3.8 g/dL (3.5-5.7); Albumin/Globulin Ratio 1.2 (1.1-2.2); Alkaline Phosphatase 90 Units/L (34-104); Aspartate Amino Transferase 14 Units/L (13-39); BUN/Creatinine Ratio 10 (6-26); Bilirubin,Total 0.2 mg/dL (0.3-1.0); Blood Urea Nitrogen 8 mg/dL (6-20); Calcium 7.9 mg/dL (8.6-10.3); Carbon Dioxide 21 mEq/L (23-29); Chloride 106 mEq/L (98-107); Globulin 3.1 g/dL (2.4-3.5); Glucose 102 mg/dL (70-105); Lipase 19 Units/L (11-82); Osmolality,Calculated 283 (280-300); Potassium 3.4 mEq/L (3.5-5.1); Sodium 137 mEq/L (136-145); Total Protein 6.9 g/dL (6.4-8.9); Troponin I < 0.03 ng/mL (< 0.04); eGFR For African Americans > 60 (> 60); eGFR For Non-African Americans > 60 (> 60)
[2020-03-04] MEDS ORDERED: Morphine Sulfate 2 MG/ML SYRINGE IVP ONE ×2 (21:12→22:07)
[2020-03-04] MEDS ORDERED: 0.9 % Sodium Chloride 1,000 ML IV ONE (22:48)
[2020-03-05] MEDS ORDERED: *HR* Promethazine 25 MG/ML VIAL IVP PRN (03:03)
[2020-03-05] MEDS ORDERED: Naloxone 0.4 MG/ML INJ IVP PRN (03:03)
[2020-03-05] MEDS ORDERED: Acetaminophen 325 MG TABLET PO PRN (03:03)
[2020-03-05] MEDS: 0.9 % Sodium Chloride 1,000 ML IVC SCH ×2 (03:31→17:02)
[2020-03-05 04:33] LABS: Basophils # 0.1 K/mcL (0.0-0.2); Eosinophils # 0.4 K/mcL (0.0-0.6); Eosinophils % 4.3 %; Hematocrit 36.1 % (35.3-44.9); Hemoglobin 11.8 g/dL (11.5-15.4); Immature Granulocytes % 0.3 % (0-4); Lymphocytes # 3.6 K/mcL (0.6-4.6); Lymphocytes % 35.8 %; Mean Corpuscular HGB Conc 32.7 g/dL (31.6-35.5); Mean Corpuscular Volume 88.7 fL (83.0-100.0); Mean Platelet Volume 10.3 fL (9.4-12.4); Monocytes # 0.7 K/mcL (0.0-1.3); Monocytes % 6.8 %; Neutrophils # 5.2 K/mcL (1.6-8.9); Platelet Count 284 K/mcL (140-400); Red Blood Count 4.07 M/mcL (3.82-4.97); Red Cell Distribution Width 12.6 % (11.5-14.5); Segmented Neutrophils % 51.8 %; White Blood Count 10.1 K/mcL (4.3-11.1)
[2020-03-05 04:34] LABS: Prothrombin Time 11.7 Seconds (9.4-12.1)
[2020-03-05 04:47] LABS: BUN/Creatinine Ratio 18 (6-26); Blood Urea Nitrogen 11 mg/dL (6-20); Calcium 8.1 mg/dL (8.6-10.3); Carbon Dioxide 23 mEq/L (23-29); Chloride 107 mEq/L (98-107); Glucose 100 mg/dL (70-105); Magnesium 1.9 mg/dL (1.6-2.6); Osmolality,Calculated 281 (280-300); Phosphorous 2.7 mg/dL (2.7-4.5); Potassium 3.7 mEq/L (3.5-5.1); Sodium 136 mEq/L (136-145); eGFR For African Americans > 60 (> 60); eGFR For Non-African Americans > 60 (> 60)
[2020-03-05] MEDS: Sennosides/Docusate Sodium TABLET PO SCH ×2 (10:28→22:45)
[2020-03-05] MEDS: *HR* Heparin 5,000 UNIT/ML VIAL SQ SCH (22:45)
[2020-03-05] MEDS: Fluticasone Propionate Nasal 50 MCG/SPRAY BOTTLE NS SCH (22:45)
[2020-03-06] MEDS: *HR* Heparin 5,000 UNIT/ML VIAL SQ SCH (06:06)
[2020-03-06] MEDS: Fluticasone Propionate Nasal 50 MCG/SPRAY BOTTLE NS SCH (08:21)
[2020-03-06] MEDS: Sennosides/Docusate Sodium TABLET PO SCH (08:21)
[2020-03-06 10:49] VITALS: BP 124/84
== END 2020-03-06 15:05 | disposition home or self-care (01) ==
LOC: 3BNU 19:43 → EMEROOARM 19:43 → SUATTDRO 03-05 01:42 → 3BNU 03-05 02:34
PROVIDERS: ADMIT Internal Medicine; ATTEND Internal Medicine

== ENCOUNTER 2020-11-05 13:26 | Inpatient (IN) ==
[2020-11-05 14:37] LABS: Basophils % 0.1 %; Hematocrit 34.9 % (35.3-44.9); Immature Granulocytes % 0.6 % (0-4); Lymphocytes # 0.4 K/mcL (0.6-4.6); Lymphocytes % 3.5 %; Mean Corpuscular HGB Conc 31.5 g/dL (31.6-35.5); Mean Corpuscular Hemoglobin 25.3 pg (28.0-33.3); Mean Corpuscular Volume 80.4 fL (83.0-100.0); Mean Platelet Volume 11.4 fL (9.4-12.4); Monocytes # 0.2 K/mcL (0.0-1.3); Monocytes % 1.9 %; Neutrophils # 11.1 K/mcL (1.6-8.9); Platelet Count 185 K/mcL (140-400); Red Blood Count 4.34 M/mcL (3.82-4.97); Red Cell Distribution Width 13.7 % (11.5-14.5); Segmented Neutrophils % 93.9 %; White Blood Count 11.8 K/mcL (4.3-11.1)
[2020-11-05 14:44] LABS: INR 1.2; Prothrombin Time 14.2 Seconds (9.4-12.1)
[2020-11-05 14:47] LABS: Activated Partial Thrombo Time 23.6 Seconds (26.0-36.0)
[2020-11-05 15:04] LABS: Alanine Aminotransferase 16 Units/L (7-52); Albumin 3.4 g/dL (3.5-5.7); Albumin/Globulin Ratio 0.9 (1.1-2.2); Alkaline Phosphatase 56 Units/L (34-104); Aspartate Amino Transferase 37 Units/L (13-39); BUN/Creatinine Ratio 16 (6-26); Bilirubin,Direct 0.1 mg/dL (0.0-0.2); Bilirubin,Indirect 0.2 mg/dL (0.0-1.0); Bilirubin,Total 0.3 mg/dL (0.3-1.0); Blood Urea Nitrogen 13 mg/dL (6-20); Calcium 7.7 mg/dL (8.6-10.3); Carbon Dioxide 22 mEq/L (23-29); Chloride 100 mEq/L (98-107); Globulin 3.7 g/dL (2.4-3.5); Glucose 135 mg/dL (70-105); Magnesium 1.6 mg/dL (1.6-2.6); Osmolality,Calculated 284 (280-300); Phosphorous 1.5 mg/dL (2.7-4.5); Potassium 2.8 mEq/L (3.5-5.1); Sodium 136 mEq/L (136-145); Total Protein 7.1 g/dL (6.4-8.9); Troponin I < 0.03 ng/mL (< 0.04); eGFR For African Americans > 60 (> 60); eGFR For Non-African Americans > 60 (> 60)
[2020-11-05] MEDS ORDERED: Potassium Chloride Elixir 20 MEQ/15 ML UDC PO ONE (15:15)
[2020-11-05] MEDS ORDERED: Potassium Chloride 40 MEQ, Lidocaine 1% 2 ML in 0.9 % Sodium Chloride 500 ML IVPB ONE (15:16)
[2020-11-05 15:55] LABS: Bilirubin,Urine Moderate (Negative); Blood,Urine Negative (Negative); Clarity,Urine Clear (Clear); Color,Urine Yellow (Yellow); Glucose,Urine (UA) 100 mg/dL (Normal); Ketones,Urine Trace mg/dL (Negative); Leukocyte Esterase,Urine Negative (Negative); Nitrite,Urine Negative (Negative); PH,Urine 5.5 pH Units (5.0-8.0); Protein,Urine 100 mg/dL (Neg-Trace); Specific Gravity,Urine >= 1.030 (1.010-1.025); Urobilinogen,Urine Normal (Normal)
[2020-11-05 15:57] LABS: Hyaline Casts,Urine Few per lpf (None Seen); Squamous Epithelial Cell,Urine Moderate per hpf (None-Few)
[2020-11-05 15:58] LABS: Bacteria,Urine Few per hpf (None-Few); Mucus,Urine Few per lpf (None-Few)
[2020-11-05 15:59] LABS: WBC,Urine 0-3 per hpf (0-3)
[2020-11-05] MEDS ORDERED: cefTRIAXone 1,000 MG in Water for inj. (sterile) 10 ML IVP ONE (16:26)
[2020-11-05] MEDS ORDERED: Azithromycin 500 MG in 0.9 % Sodium Chloride 250 ML IVPB ONE (16:26)
[2020-11-05] MEDS ORDERED: Naloxone 0.4 MG/ML INJ IVP PRN (17:15)
[2020-11-05] MEDS ORDERED: Acetaminophen 325 MG TABLET PO PRN (17:20)
[2020-11-05] MEDS: 0.9 % Sodium Chloride 1,000 ML IVC SCH ×2 (18:17→19:29)
[2020-11-05] MEDS ORDERED: Isovue-370 500 ML BOTTLE IVP ONE (18:25)
[2020-11-05] MEDS: cefTRIAXone 1,000 MG in Water for inj. (sterile) 10 ML IVP SCH (20:18)
[2020-11-06 04:58] LABS: Immature Granulocytes % 0.6 % (0-4); Lymphocytes # 0.7 K/mcL (0.6-4.6); Lymphocytes % 6.7 %; Mean Corpuscular HGB Conc 31.8 g/dL (31.6-35.5); Mean Corpuscular Hemoglobin 25.5 pg (28.0-33.3); Mean Corpuscular Volume 80.2 fL (83.0-100.0); Mean Platelet Volume 11.5 fL (9.4-12.4); Monocytes # 0.5 K/mcL (0.0-1.3); Monocytes % 4.6 %; Neutrophils # 9.3 K/mcL (1.6-8.9); Platelet Count 144 K/mcL (140-400); Red Blood Count 3.49 M/mcL (3.82-4.97); Red Cell Distribution Width 14.2 % (11.5-14.5); Segmented Neutrophils % 88.1 %; White Blood Count 10.6 K/mcL (4.3-11.1)
[2020-11-06 04:59] LABS: Hemoglobin 8.9 g/dL (11.5-15.4)
[2020-11-06 05:27] LABS: Alanine Aminotransferase 13 Units/L (7-52); Albumin 2.8 g/dL (3.5-5.7); Albumin/Globulin Ratio 0.9 (1.1-2.2); Alkaline Phosphatase 43 Units/L (34-104); Aspartate Amino Transferase 36 Units/L (13-39); BUN/Creatinine Ratio 20 (6-26); Bilirubin,Total 0.2 mg/dL (0.3-1.0); Blood Urea Nitrogen 9 mg/dL (6-20); Calcium 6.7 mg/dL (8.6-10.3); Carbon Dioxide 21 mEq/L (23-29); Chloride 105 mEq/L (98-107); Glucose 130 mg/dL (70-105); Osmolality,Calculated 282 (280-300); Potassium 3.2 mEq/L (3.5-5.1); Sodium 136 mEq/L (136-145); Total Protein 5.8 g/dL (6.4-8.9); eGFR For African Americans > 60 (> 60); eGFR For Non-African Americans > 60 (> 60)
[2020-11-06] MEDS: *HR* Enoxaparin 40 MG/0.4 ML SYRINGE SQ SCH (06:34)
[2020-11-06] MEDS ORDERED: Potassium Chloride Elixir 20 MEQ/15 ML UDC PO ONE (08:46)
[2020-11-06] MEDS ORDERED: Azithromycin 250 MG TABLET PO SCH (09:30)
[2020-11-06] MEDS: Dexamethasone 4 MG/ML VIAL IVP SCH (10:13)
[2020-11-06] MEDS: 0.9 % Sodium Chloride 1,000 ML IVC SCH ×3 (10:30→20:21)
[2020-11-06] MEDS ORDERED: Acetaminophen 325 MG TABLET PO ONE (11:20)
[2020-11-06] MEDS: cefTRIAXone 1,000 MG in Water for inj. (sterile) 10 ML IVP SCH (20:20)
[2020-11-06] MEDS: Ondansetron 4 MG/2 ML VIAL IVP PRN (21:15)
[2020-11-07 01:53] LABS: Alanine Aminotransferase 12 Units/L (7-52); Albumin 2.9 g/dL (3.5-5.7); Albumin/Globulin Ratio 0.9 (1.1-2.2); Alkaline Phosphatase 45 Units/L (34-104); Aspartate Amino Transferase 39 Units/L (13-39); BUN/Creatinine Ratio 18 (6-26); Bilirubin,Total 0.2 mg/dL (0.3-1.0); Blood Urea Nitrogen 7 mg/dL (6-20); Calcium 7.1 mg/dL (8.6-10.3); Carbon Dioxide 22 mEq/L (23-29); Chloride 108 mEq/L (98-107); Globulin 3.3 g/dL (2.4-3.5); Glucose 143 mg/dL (70-105); Osmolality,Calculated 284 (280-300); Potassium 3.7 mEq/L (3.5-5.1); Sodium 137 mEq/L (136-145); Total Protein 6.2 g/dL (6.4-8.9); eGFR For African Americans > 60 (> 60); eGFR For Non-African Americans > 60 (> 60)
[2020-11-07] MEDS: *HR* Enoxaparin 40 MG/0.4 ML SYRINGE SQ SCH ×2 (05:14→19:57)
[2020-11-07] MEDS: 0.9 % Sodium Chloride 1,000 ML IVC SCH (05:26)
[2020-11-07] MEDS: Dexamethasone 4 MG/ML VIAL IVP SCH (07:58)
[2020-11-07] MEDS: Doxycycline 100 MG CAPSULE PO SCH ×2 (07:58→19:57)
[2020-11-07 08:06] LABS: Hematocrit 32.1 % (35.3-44.9); Hemoglobin 10.1 g/dL (11.5-15.4); Mean Corpuscular HGB Conc 31.5 g/dL (31.6-35.5); Mean Corpuscular Hemoglobin 25.9 pg (28.0-33.3); Mean Corpuscular Volume 82.3 fL (83.0-100.0); Mean Platelet Volume 11.4 fL (9.4-12.4); Platelet Count 177 K/mcL (140-400); Red Cell Distribution Width 14.2 % (11.5-14.5)
[2020-11-07 08:08] LABS: White Blood Count 10.5 K/mcL (4.3-11.1)
[2020-11-07] MEDS ORDERED: Benzonatate 100 MG CAPSULE PO PRN (09:02)
[2020-11-07] MEDS ORDERED: Furosemide 40 MG/4 ML VIAL IVP ONE (11:02)
[2020-11-07] MEDS: GuaiFENesin Liq 200 MG/10 ML UDC PO SCH ×3 (11:18→23:42)
[2020-11-07] MEDS ORDERED: Calcium Gluconate 1gm/50mL 1 GM/50 ML BAG IVPB ONE (11:24)
[2020-11-07] MEDS ORDERED: GuaiFENesin Liq 200 MG/10 ML UDC PO SCH (12:00)
[2020-11-07] MEDS ORDERED: Remdesivir 200 MG in 0.9 % Sodium Chloride 100 ML IVPB ONE (18:00)
[2020-11-07] MEDS: cefTRIAXone 1,000 MG in Water for inj. (sterile) 10 ML IVP SCH (19:56)
[2020-11-08 02:05] LABS: Basophils % 0.1 %; Hematocrit 30.4 % (35.3-44.9); Hemoglobin 9.6 g/dL (11.5-15.4); Immature Granulocytes % 0.8 % (0-4); Lymphocytes # 0.8 K/mcL (0.6-4.6); Lymphocytes % 10.9 %; Mean Corpuscular HGB Conc 31.6 g/dL (31.6-35.5); Mean Corpuscular Hemoglobin 25.3 pg (28.0-33.3); Mean Corpuscular Volume 80.2 fL (83.0-100.0); Mean Platelet Volume 11.6 fL (9.4-12.4); Monocytes # 0.5 K/mcL (0.0-1.3); Monocytes % 6.9 %; Neutrophils # 6.1 K/mcL (1.6-8.9); Platelet Count 229 K/mcL (140-400); Red Blood Count 3.79 M/mcL (3.82-4.97); Red Cell Distribution Width 13.9 % (11.5-14.5); Segmented Neutrophils % 81.3 %; White Blood Count 7.5 K/mcL (4.3-11.1)
[2020-11-08 02:26] LABS: Alanine Aminotransferase 11 Units/L (7-52); Albumin 2.7 g/dL (3.5-5.7); Albumin/Globulin Ratio 0.8 (1.1-2.2); Alkaline Phosphatase 44 Units/L (34-104); Aspartate Amino Transferase 31 Units/L (13-39); BUN/Creatinine Ratio 25 (6-26); Bilirubin,Total 0.3 mg/dL (0.3-1.0); Blood Urea Nitrogen 10 mg/dL (6-20); Calcium 7.3 mg/dL (8.6-10.3); Carbon Dioxide 26 mEq/L (23-29); Chloride 104 mEq/L (98-107); Globulin 3.3 g/dL (2.4-3.5); Glucose 123 mg/dL (70-105); Osmolality,Calculated 288 (280-300); Potassium 3.1 mEq/L (3.5-5.1); Sodium 139 mEq/L (136-145); eGFR For African Americans > 60 (> 60); eGFR For Non-African Americans > 60 (> 60)
[2020-11-08] MEDS: GuaiFENesin Liq 200 MG/10 ML UDC PO SCH ×4 (05:07→22:59)
[2020-11-08] MEDS: Doxycycline 100 MG CAPSULE PO SCH ×2 (07:49→10:05)
[2020-11-08] MEDS: *HR* Enoxaparin 40 MG/0.4 ML SYRINGE SQ SCH ×2 (07:50→20:01)
[2020-11-08] MEDS: Dexamethasone 4 MG/ML VIAL IVP SCH (07:50)
[2020-11-08] MEDS ORDERED: Mag Hydrox/Al Hydrox/Simeth 30 ML UDC PO PRN (10:35)
[2020-11-08] MEDS ORDERED: Doxycycline 100 MG in 0.9 % Sodium Chloride Mini Bag 100 ML IVPB SCH (10:36)
[2020-11-08 11:56] LABS: Magnesium 2.1 mg/dL (1.6-2.6)
[2020-11-08] MEDS: Remdesivir 100 MG in 0.9 % Sodium Chloride 100 ML IVPB SCH (17:37)
[2020-11-08] MEDS: Ondansetron 4 MG/2 ML VIAL IVP PRN (20:00)
[2020-11-08] MEDS: cefTRIAXone 1,000 MG in Water for inj. (sterile) 10 ML IVP SCH (20:00)
[2020-11-08] MEDS: Doxycycline 100 MG in 0.9 % Sodium Chloride Mini Bag 100 ML IVPB SCH (22:19)
[2020-11-09] MEDS ORDERED: Ipratropium 1 PUFF INHALER IH PRN (01:49)
[2020-11-09 03:36] LABS: Hematocrit 31.5 % (35.3-44.9); Hemoglobin 10.1 g/dL (11.5-15.4); Mean Corpuscular HGB Conc 32.1 g/dL (31.6-35.5); Mean Corpuscular Volume 81.2 fL (83.0-100.0); Mean Platelet Volume 11.1 fL (9.4-12.4); Platelet Count 273 K/mcL (140-400); Red Blood Count 3.88 M/mcL (3.82-4.97); Red Cell Distribution Width 14.1 % (11.5-14.5); Segmented Neutrophils % 69.5 %; White Blood Count 8.7 K/mcL (4.3-11.1)
[2020-11-09 03:37] LABS: Basophils % 0.2 %; Immature Granulocytes % 2.1 % (0-4); Lymphocytes # 1.7 K/mcL (0.6-4.6); Lymphocytes % 19.7 %; Monocytes # 0.7 K/mcL (0.0-1.3); Monocytes % 8.5 %; Neutrophils # 6.1 K/mcL (1.6-8.9)
[2020-11-09 03:44] LABS: INR 1.2; Prothrombin Time 13.6 Seconds (9.4-12.1)
[2020-11-09 03:56] LABS: Platelet Estimate Normal (Normal)
[2020-11-09 03:57] LABS: Alanine Aminotransferase 12 Units/L (7-52); Albumin 2.6 g/dL (3.5-5.7); Albumin/Globulin Ratio 0.8 (1.1-2.2); Alkaline Phosphatase 43 Units/L (34-104); Aspartate Amino Transferase 23 Units/L (13-39); BUN/Creatinine Ratio 35 (6-26); Bilirubin,Total 0.3 mg/dL (0.3-1.0); Blood Urea Nitrogen 14 mg/dL (6-20); Calcium 7.2 mg/dL (8.6-10.3); Carbon Dioxide 26 mEq/L (23-29); Chloride 106 mEq/L (98-107); Globulin 3.2 g/dL (2.4-3.5); Glucose 113 mg/dL (70-105); Osmolality,Calculated 285 (280-300); Potassium 3.5 mEq/L (3.5-5.1); Sodium 137 mEq/L (136-145); Total Protein 5.8 g/dL (6.4-8.9); eGFR For African Americans > 60 (> 60); eGFR For Non-African Americans > 60 (> 60)
[2020-11-09] MEDS: GuaiFENesin Liq 200 MG/10 ML UDC PO SCH ×3 (05:25→16:41)
[2020-11-09] MEDS ORDERED: Potassium Chloride 40 MEQ, Lidocaine 1% 2 ML in 0.9 % Sodium Chloride 500 ML IVPB ONE (07:19)
[2020-11-09] MEDS ORDERED: Furosemide 40 MG/4 ML VIAL IVP ONE (07:19)
[2020-11-09] MEDS: Dexamethasone 4 MG/ML VIAL IVP SCH (08:10)
[2020-11-09] MEDS: *HR* Enoxaparin 40 MG/0.4 ML SYRINGE SQ SCH (08:11)
[2020-11-09] MEDS: Doxycycline 100 MG in 0.9 % Sodium Chloride Mini Bag 100 ML IVPB SCH ×2 (08:11→20:50)
[2020-11-09] MEDS: Remdesivir 100 MG in 0.9 % Sodium Chloride 100 ML IVPB SCH (16:41)
[2020-11-09] MEDS: cefTRIAXone 1,000 MG in Water for inj. (sterile) 10 ML IVP SCH (20:44)
[2020-11-10] MEDS: GuaiFENesin Liq 200 MG/10 ML UDC PO SCH ×4 (02:27→17:29)
[2020-11-10 06:01] LABS: Basophils # 0.1 K/mcL (0.0-0.2); Basophils % 0.6 %; Eosinophils % 0.3 %; Hematocrit 32.3 % (35.3-44.9); Immature Granulocytes % 3.7 % (0-4); Lymphocytes # 2.6 K/mcL (0.6-4.6); Mean Corpuscular Volume 80.8 fL (83.0-100.0); Mean Platelet Volume 11.4 fL (9.4-12.4); Monocytes # 0.8 K/mcL (0.0-1.3); Monocytes % 7.5 %; Nucleated Red Blood Cells 0.5 /100 WBC (0); Platelet Count 338 K/mcL (140-400); Segmented Neutrophils % 62.9 %; White Blood Count 10.4 K/mcL (4.3-11.1)
[2020-11-10 06:07] LABS: Neutrophils # 6.5 K/mcL (1.6-8.9)
[2020-11-10 06:09] LABS: INR 1.3; Prothrombin Time 14.9 Seconds (9.4-12.1)
[2020-11-10 06:15] LABS: Alanine Aminotransferase 10 Units/L (7-52); Albumin 2.6 g/dL (3.5-5.7); Albumin/Globulin Ratio 0.8 (1.1-2.2); Alkaline Phosphatase 47 Units/L (34-104); Aspartate Amino Transferase 20 Units/L (13-39); BUN/Creatinine Ratio 40 (6-26); Bilirubin,Total 0.3 mg/dL (0.3-1.0); Blood Urea Nitrogen 16 mg/dL (6-20); Calcium 7.6 mg/dL (8.6-10.3); Carbon Dioxide 27 mEq/L (23-29); Chloride 105 mEq/L (98-107); Globulin 3.1 g/dL (2.4-3.5); Glucose 105 mg/dL (70-105); Osmolality,Calculated 288 (280-300); Potassium 3.4 mEq/L (3.5-5.1); Sodium 138 mEq/L (136-145); Total Protein 5.7 g/dL (6.4-8.9); eGFR For African Americans > 60 (> 60); eGFR For Non-African Americans > 60 (> 60)
[2020-11-10] MEDS: *HR* Enoxaparin 40 MG/0.4 ML SYRINGE SQ SCH (06:56)
[2020-11-10] MEDS ORDERED: Furosemide 40 MG/4 ML VIAL IVP ONE (07:10)
[2020-11-10] MEDS ORDERED: Potassium Chloride 40 MEQ, Lidocaine 1% 2 ML in 0.9 % Sodium Chloride 500 ML IVPB ONE (07:12)
[2020-11-10] MEDS: Dexamethasone 4 MG/ML VIAL IVP SCH (09:44)
[2020-11-10] MEDS: Doxycycline 100 MG in 0.9 % Sodium Chloride Mini Bag 100 ML IVPB SCH (09:45)
[2020-11-10] MEDS: Remdesivir 100 MG in 0.9 % Sodium Chloride 100 ML IVPB SCH (15:58)
[2020-11-11] MEDS: GuaiFENesin Liq 200 MG/10 ML UDC PO SCH ×3 (00:23→10:45)
[2020-11-11] MEDS: *HR* Enoxaparin 40 MG/0.4 ML SYRINGE SQ SCH (05:22)
[2020-11-11 07:43] LABS: Basophils # 0.1 K/mcL (0.0-0.2); Basophils % 0.7 %; Eosinophils # 0.1 K/mcL (0.0-0.6); Eosinophils % 0.7 %; Hematocrit 33.7 % (35.3-44.9); Hemoglobin 10.4 g/dL (11.5-15.4); Immature Granulocytes % 4.2 % (0-4); Lymphocytes # 2.7 K/mcL (0.6-4.6); Mean Corpuscular HGB Conc 30.9 g/dL (31.6-35.5); Mean Corpuscular Hemoglobin 25.3 pg (28.0-33.3); Mean Platelet Volume 11.4 fL (9.4-12.4); Monocytes # 0.8 K/mcL (0.0-1.3); Neutrophils # 9.2 K/mcL (1.6-8.9); Nucleated Red Blood Cells 0.2 /100 WBC (0); Platelet Count 409 K/mcL (140-400); Red Blood Count 4.11 M/mcL (3.82-4.97); Red Cell Distribution Width 14.4 % (11.5-14.5); Segmented Neutrophils % 68.4 %; White Blood Count 13.4 K/mcL (4.3-11.1)
[2020-11-11 07:49] LABS: INR 1.3; Prothrombin Time 14.9 Seconds (9.4-12.1)
[2020-11-11 07:53] LABS: Alanine Aminotransferase 9 Units/L (7-52); Albumin 2.7 g/dL (3.5-5.7); Albumin/Globulin Ratio 0.8 (1.1-2.2); Alkaline Phosphatase 48 Units/L (34-104); Aspartate Amino Transferase 20 Units/L (13-39); BUN/Creatinine Ratio 38 (6-26); Bilirubin,Total 0.4 mg/dL (0.3-1.0); Blood Urea Nitrogen 14 mg/dL (6-20); Calcium 7.9 mg/dL (8.6-10.3); Carbon Dioxide 25 mEq/L (23-29); Chloride 107 mEq/L (98-107); Globulin 3.3 g/dL (2.4-3.5); Glucose 101 mg/dL (70-105); Osmolality,Calculated 287 (280-300); Sodium 138 mEq/L (136-145); eGFR For African Americans > 60 (> 60); eGFR For Non-African Americans > 60 (> 60)
[2020-11-11 08:03] LABS: Platelet Estimate Normal (Normal); Reactive Lymphocytes Present (Not Present)
[2020-11-11] MEDS: Dexamethasone 4 MG/ML VIAL IVP SCH (09:39)
[2020-11-11] MEDS ORDERED: Furosemide 40 MG/4 ML VIAL IVP ONE (10:04)
[2020-11-11 12:34] VITALS: BP 115/82
== END 2020-11-11 15:39 | disposition home or self-care (01) | DRG 720 ==
LOC: EMEROOARM 13:26 → 2ANU 13:26 → SUATTDRO 17:24 → 2ANU 18:20 → SUATTDRO 11-07 13:25
PROVIDERS: ADMIT Internal Medicine; ATTEND Internal Medicine

== ENCOUNTER 2021-06-24 17:20 | Inpatient (IN) ==
[2021-06-24] MEDS ORDERED: Tdap (Boostrix) Vaccine 0.5 ML SYRINGE IM ONE (17:41)
[2021-06-24] MEDS ORDERED: Isovue-370 500 ML BOTTLE IVP ONE (18:09)
[2021-06-24 18:14] LABS: Basophils # 0.1 K/mcL (0.0-0.2); Basophils % 0.6 %; Eosinophils # 0.5 K/mcL (0.0-0.6); Eosinophils % 2.6 %; Hematocrit 30.4 % (35.3-44.9); Hemoglobin 9.3 g/dL (11.5-15.4); Immature Granulocytes % 0.6 % (0-4); Lymphocytes # 2.9 K/mcL (0.6-4.6); Lymphocytes % 13.7 %; Mean Corpuscular HGB Conc 30.6 g/dL (31.6-35.5); Mean Corpuscular Hemoglobin 22.4 pg (28.0-33.3); Mean Corpuscular Volume 73.3 fL (83.0-100.0); Mean Platelet Volume 10.4 fL (9.4-12.4); Monocytes # 1.6 K/mcL (0.0-1.3); Monocytes % 7.5 %; Neutrophils # 15.9 K/mcL (1.6-8.9); Platelet Count 430 K/mcL (140-400); Red Blood Count 4.15 M/mcL (3.82-4.97); Red Cell Distribution Width 15.9 % (11.5-14.5); White Blood Count 21.2 K/mcL (4.3-11.1)
[2021-06-24 18:29] LABS: BUN/Creatinine Ratio 19 (6-26); Blood Urea Nitrogen 12 mg/dL (6-20); Calcium 8.6 mg/dL (8.6-10.3); Carbon Dioxide 20 mEq/L (23-29); Chloride 105 mEq/L (98-107); Glucose 137 mg/dL (70-105); Osmolality,Calculated 282 (280-300); Potassium 3.6 mEq/L (3.5-5.1); Sodium 135 mEq/L (136-145); eGFR For African Americans > 60 (> 60); eGFR For Non-African Americans > 60 (> 60)
[2021-06-24] MEDS ORDERED: cefTRIAXone 1,000 MG in Water for inj. (sterile) 10 ML IVP ONE (19:50)
[2021-06-24] MEDS ORDERED: *HR* FentaNYL (PF) 100 MCG/2 ML VIAL IVP ONE (19:51)
[2021-06-24] MEDS ORDERED: Naloxone 0.4 MG/ML INJ IVP PRN (20:16)
[2021-06-24] MEDS ORDERED: Ondansetron 4 MG/2 ML VIAL IVP PRN (20:16)
[2021-06-24] MEDS ORDERED: Acetaminophen 325 MG TABLET PO PRN (20:16)
[2021-06-24] MEDS: 0.9 % Sodium Chloride 1,000 ML IVC SCH (20:19)
[2021-06-24] MEDS ORDERED: Vancomycin 1,500 MG/265 ML IV.SOLN IVPB ONE (22:00)
[2021-06-24] MEDS: cefTRIAXone 1,000 MG in 0.9 % Sodium Chloride Mini Bag 100 ML IVPB SCH (22:13)
[2021-06-25 01:49] LABS: BUN/Creatinine Ratio 17 (6-26); Blood Urea Nitrogen 9 mg/dL (6-20); Carbon Dioxide 19 mEq/L (23-29); Chloride 108 mEq/L (98-107); Glucose 112 mg/dL (70-105); Hematocrit 26.8 % (35.3-44.9); Hemoglobin 8.2 g/dL (11.5-15.4); Mean Corpuscular HGB Conc 30.6 g/dL (31.6-35.5); Mean Corpuscular Hemoglobin 22.2 pg (28.0-33.3); Mean Corpuscular Volume 72.6 fL (83.0-100.0); Mean Platelet Volume 11.5 fL (9.4-12.4); Osmolality,Calculated 281 (280-300); Platelet Count 303 K/mcL (140-400); Potassium 4.2 mEq/L (3.5-5.1); Red Blood Count 3.69 M/mcL (3.82-4.97); Red Cell Distribution Width 16.1 % (11.5-14.5); Sodium 136 mEq/L (136-145); White Blood Count 16.9 K/mcL (4.3-11.1); eGFR For African Americans > 60 (> 60); eGFR For Non-African Americans > 60 (> 60)
[2021-06-25] MEDS: 0.9 % Sodium Chloride 1,000 ML IVC SCH (06:06)
[2021-06-25] MEDS ORDERED: Ketorolac 30 MG/ML VIAL IVP PRN (06:41)
[2021-06-25] MEDS: cefTRIAXone 1,000 MG in 0.9 % Sodium Chloride Mini Bag 100 ML IVPB SCH (08:18)
[2021-06-25] MEDS ORDERED: *HR* Propofol 200 MG/20 ML VIAL IVP ONE (11:18)
[2021-06-25] MEDS ORDERED: *HR* FentaNYL (PF) 100 MCG/2 ML VIAL ONE (11:18)
[2021-06-25] MEDS ORDERED: Lidocaine -MPF 2% 5 ML VIAL ONE (11:19)
[2021-06-25] MEDS ORDERED: Ondansetron 4 MG/2 ML VIAL ONE (12:11)
[2021-06-25] MEDS ORDERED: Acetaminophen IV 1,000 MG/100 ML BAG IVPB ONE (12:15)
[2021-06-25] MEDS ORDERED: Ketorolac 30 MG/ML VIAL ONE (12:15)
[2021-06-25] MEDS ORDERED: Ondansetron 4 MG/2 ML VIAL IVP PRN (14:03)
[2021-06-25] MEDS ORDERED: Naloxone 0.4 MG/ML INJ IVP PRN (14:03)
[2021-06-25] MEDS ORDERED: Acetaminophen 325 MG TABLET PO PRN (14:03)
[2021-06-25] MEDS: Ketorolac 30 MG/ML VIAL IVP PRN (15:36)
[2021-06-25] MEDS: Piperacillin/Tazobactam 3.375 GM in 0.9 % Sodium Chloride Mini Bag 100 ML IVPB SCH (17:18)
[2021-06-26] MEDS: Piperacillin/Tazobactam 3.375 GM in 0.9 % Sodium Chloride Mini Bag 100 ML IVPB SCH ×4 (02:00→23:55)
[2021-06-26 03:46] LABS: BUN/Creatinine Ratio 13 (6-26); Blood Urea Nitrogen 9 mg/dL (6-20); Calcium 8.1 mg/dL (8.6-10.3); Carbon Dioxide 16 mEq/L (23-29); Chloride 109 mEq/L (98-107); Glucose 100 mg/dL (70-105); Osmolality,Calculated 283 (280-300); Sodium 137 mEq/L (136-145); eGFR For African Americans > 60 (> 60); eGFR For Non-African Americans > 60 (> 60)
[2021-06-26] MEDS: Ketorolac 30 MG/ML VIAL IVP PRN ×3 (03:53→19:31)
[2021-06-26 06:28] LABS: Basophils # 0.1 K/mcL (0.0-0.2); Basophils % 0.7 %; Eosinophils # 0.8 K/mcL (0.0-0.6); Hematocrit 26.7 % (35.3-44.9); Hemoglobin 8.1 g/dL (11.5-15.4); Immature Granulocytes % 1.6 % (0-4); Lymphocytes # 2.3 K/mcL (0.6-4.6); Lymphocytes % 17.3 %; Mean Corpuscular HGB Conc 30.3 g/dL (31.6-35.5); Mean Corpuscular Hemoglobin 22.3 pg (28.0-33.3); Mean Corpuscular Volume 73.4 fL (83.0-100.0); Mean Platelet Volume 11.3 fL (9.4-12.4); Monocytes # 0.9 K/mcL (0.0-1.3); Monocytes % 6.7 %; Neutrophils # 9.1 K/mcL (1.6-8.9); Platelet Count 379 K/mcL (140-400); Red Blood Count 3.64 M/mcL (3.82-4.97); Red Cell Distribution Width 16.5 % (11.5-14.5); Segmented Neutrophils % 67.7 %; White Blood Count 13.5 K/mcL (4.3-11.1)
[2021-06-26] MEDS ORDERED: cefTRIAXone 1,000 MG in 0.9 % Sodium Chloride Mini Bag 100 ML IVPB SCH (09:00)
[2021-06-26] MEDS: Vancomycin 1,250 MG/262.5 ML IV.SOLN IVPB SCH (16:25)
[2021-06-26 23:06] VITALS: PULSE 88
[2021-06-26] MEDS: 0.9 % Sodium Chloride 1,000 ML IVC SCH (23:40)
[2021-06-27 02:43] LABS: Basophils # 0.1 K/mcL (0.0-0.2); Basophils % 0.9 %; Eosinophils # 0.9 K/mcL (0.0-0.6); Eosinophils % 8.4 %; Hematocrit 26.2 % (35.3-44.9); Lymphocytes # 2.7 K/mcL (0.6-4.6); Lymphocytes % 24.3 %; Mean Corpuscular HGB Conc 30.5 g/dL (31.6-35.5); Mean Corpuscular Hemoglobin 22.5 pg (28.0-33.3); Mean Corpuscular Volume 73.6 fL (83.0-100.0); Mean Platelet Volume 10.6 fL (9.4-12.4); Monocytes # 0.8 K/mcL (0.0-1.3); Monocytes % 7.7 %; Neutrophils # 6.3 K/mcL (1.6-8.9); Platelet Count 453 K/mcL (140-400); Red Blood Count 3.56 M/mcL (3.82-4.97); Red Cell Distribution Width 16.1 % (11.5-14.5); Segmented Neutrophils % 57.7 %; White Blood Count 10.9 K/mcL (4.3-11.1)
[2021-06-27 02:52] LABS: BUN/Creatinine Ratio 14 (6-26); Blood Urea Nitrogen 9 mg/dL (6-20); Calcium 7.9 mg/dL (8.6-10.3); Carbon Dioxide 22 mEq/L (23-29); Chloride 108 mEq/L (98-107); Glucose 105 mg/dL (70-105); Osmolality,Calculated 285 (280-300); Potassium 3.8 mEq/L (3.5-5.1); Sodium 138 mEq/L (136-145); eGFR For African Americans > 60 (> 60); eGFR For Non-African Americans > 60 (> 60)
[2021-06-27] MEDS: Vancomycin 1,250 MG/262.5 ML IV.SOLN IVPB SCH (05:02)
[2021-06-27] MEDS: Ketorolac 30 MG/ML VIAL IVP PRN (05:02)
[2021-06-27 06:59] VITALS: BP 117/77; TEMP 97.8; O2SAT 98
[2021-06-27] MEDS: Piperacillin/Tazobactam 3.375 GM in 0.9 % Sodium Chloride Mini Bag 100 ML IVPB SCH (07:36)
== END 2021-06-27 11:33 | disposition home health service (06) | DRG 710 ==
LOC: EMEROOARM 17:20 → 3ANU 17:20 → SUATTDRO 20:25 → 3ANU 21:03 → SUATTDRO 06-25 15:10
PROVIDERS: ADMIT Internal Medicine; ATTEND Internal Medicine